=== PATIENT | male | born 1945 | race Caucasian/White ===

== ENCOUNTER 2016-08-07 11:22 | Emergency (ER) | payer MEDICARE, OTHER ==
--- NOTE | 2016-08-07 12:41 | REP ---
Clinical: cough. Comparison: 04/12/2012. Technique: PA and lateral. Findings: The mediastinum and cardiac silhouette are normal. The lung atkinson demonstrate chronic linear changes in left lower lobe without acute consolidation, effusion, or pneumothorax. The skeletal structures are intact and normal. Impression: 1. No acute cardiopulmonary process. Signed by Daniel Garcia MD 08/07/2016 12:32 P
--- NOTE | 2016-08-07 12:47 | EDDOCDS ---
Nurse's Notes [facility] Name: Lb Son Age: 71 yrs Sex: Male : 1945 Arrival Date: 08/07/2016 Time: 11:22 Bed PR2 Private MD: Layton Lopez Diagnosis: Acute upper respiratory infection, unspecified Presentation: 08/07 11:35 Presenting complaint: Patient states: Pt presents with cough and chest congestion x 5 dls days taking OTC meds without relief. Adult Sepsis Screening: The patient does not have new or worsening altered mentation. Patient's respiratory rate is less than 22. Systolic blood pressure is greater than 100. Patient has a qSOFA score of 0- Negative Sepsis Screen. Suicide/Homicide risk assessment- the patient denies having any suicidal and/or homicidal ideations and does not present with any other emotional, behavioral or mental health complaints. Status: Patient is not a service girl or dependent. Transition of care: patient was not received from another setting of care. 11:35 Acuity: MARCEL Level 4 dls 11:35 Method Of Arrival: Walkin/Carried/Asstd dls Triage Assessment: 11:39 General: Appears in no apparent distress, well developed, well nourished, well groomed, dls Behavior is cooperative. Pain: Denies pain. Respiratory: Onset: The symptoms/episode began/occurred 5 days ago. GI: No deficits noted. : No deficits noted. Derm: No deficits noted. Musculoskeletal: No deficits noted. Injury Description: No known injury. Historical: - Allergies: no known allergies; - Home Meds: 1. atorvastatin 10 mg oral tab 1 tab once daily 2. valsartan-hydrochlorothiazide 160-12.5 mg oral tab 1 tab once daily 3. Janumet 50-500 mg oral tab 1 tab 2 times per day 4. Lantus 100 unit/mL Sub-Q soln 20 unit daily 5. Vitamin D2 oral 1.25 mg oral once wkly 6. aspirin 325 mg Oral tab 1 tab once daily 7. montelukast 10 mg oral tab 1 tab once daily 8. cyclobenzaprine 5 mg Oral tab 1 tab daily 9. tamsulosin 0.4 mg oral cp24 1 cap once daily 10. PreserVision AREDS 2 [id number] yc-gxvc-kc-mg oral cap twice a day 11. primidone 50 mg Oral tab daily - PMHx: Diabetes - IDDM: controlled; Hypercholesterolemia; Hypertension; tremors; - PSHx: knee right; right shoulder; Tonsillectomy; Hernia repair- Right inguinal; - Social history: Smoking status: Patient/guardian denies using No barriers to communication noted, The patient speaks fluent Bengali. - : The pt / caregiver states he / she is not on anticoagulants. Home medication list is obtained from the patient. - Exposure Risk Screening:: None identified. Vital Signs: 11:24 BP 156 / 78; Pulse 98; Resp 18 S; Temp 97.2(O); Pulse Ox 100% on R/A; Weight 81.65 kg dd6 (R); Height 6 ft. 2 in. (187.96 cm) (R); 12:43 BP 155 / 82; Pulse 77; Resp 18; Temp 97.4(O); Pulse Ox 97% on R/A; Pain 0/10; ct3 11:24 Body Mass Index 23.11 (81.65 kg, 187.96 cm) dd6 Vitals: 11:24 Log In Time: August 07, 2016 at 11:22. dd6 ED Course: 11:23 Patient visited by Lex Calderon PCA. dd6 11:23 Layton Lopez is Private Physician. dd6 11:23 Patient moved to Waiting dd6 11:25 Patient moved to Pre RCE dd6 11:36 Triage Initiated dls 11:53 Patient moved to Triage 1 kcs 11:54 [facility]. ar2 11:54 Antonieta Last MD is Attending Physician. ar2 11:54 Patient visited by Polo Golden PA-C. ar2 12:07 Patient moved to TR3 kcs 12:38 Layton Lopez is Referral Physician. ar2 12:38 Patient moved to PR2 / 26 ct3 12:44 Patient visited by Vidhya Vilchis PCA. ct3 Order Results: There are currently no results for this order. Outcome: 12:38 Discharge ordered by Provider. ar2 12:46 Patient left the ED. kcs Signatures: Genie Escalante RN RN Gertrudis Galeas RN RN dls Robertshaw, Aaron, PA-C PA-C ar2 Lex Calderon, HOUSE PLAYER HOUSE PLAYER dd6 Vidhya Vilchis, HOUSE PLAYER HOUSE PLAYER ct3 Tammy Roe,RN RN [id number] MTDD
--- NOTE | 2016-08-07 12:47 | EDDOCDS ---
Physician Documentation [facility] Name: Lb Son Age: 71 yrs Sex: Male : 1945 Arrival Date: 08/07/2016 Time: 11:22 Bed Private MD: Layton Lopez Disposition: 08/07/16 12:38 Discharged to Home/Self Care. Impression: Acute upper respiratory infection, unspecified. - Condition is Stable. - Discharge Instructions: Upper Respiratory Infection, Adult. - Prescriptions for benzonatate 200 mg Oral Capsule - take 1 capsule by ORAL route 3 times per day As needed; 30 capsule. Fluticasone 50 mcg/actuation Nasal [place], Suspension - inhale 2 spray by INTRANASAL route once daily; 1 bottle. - Medication Reconciliation, Local Pharmacy Hours form. - Follow up: Layton Lopez; When: 2 - 3 days; Reason: Recheck today's complaints. Follow up: Emergency Department; When: As needed; Reason: Fever > 102F, Trouble breathing, Worsening of conditions. - Problem is new. - Symptoms are unchanged. Historical: - Allergies: no known allergies; - Home Meds: 1. atorvastatin 10 mg oral tab 1 tab once daily 2. valsartan-hydrochlorothiazide 160-12.5 mg oral tab 1 tab once daily 3. Janumet 50-500 mg oral tab 1 tab 2 times per day 4. Lantus 100 unit/mL Sub-Q soln 20 unit daily 5. Vitamin D2 oral 1.25 mg oral once wkly 6. aspirin 325 mg Oral tab 1 tab once daily 7. montelukast 10 mg oral tab 1 tab once daily 8. cyclobenzaprine 5 mg Oral tab 1 tab daily 9. tamsulosin 0.4 mg oral cp24 1 cap once daily 10. PreserVision AREDS 2 [phone] lo-cwzi-gv-mg oral cap twice a day 11. primidone 50 mg Oral tab daily - PMHx: Diabetes - IDDM: controlled; Hypercholesterolemia; Hypertension; tremors; - PSHx: knee right; right shoulder; Tonsillectomy; Hernia repair- Right inguinal; - Social history: Smoking status: Patient/guardian denies using No barriers to communication noted, The patient speaks fluent Samoan. - : The pt / caregiver states he / she is not on anticoagulants. Home medication list is obtained from the patient. - Exposure Risk Screening:: None identified. Vital Signs: 08/07 11:24 BP 156 / 78; Pulse 98; Resp 18 S; Temp 97.2(O); Pulse Ox 100% on R/A; Weight 81.65 kg / dd6 180.01 lbs (R); Height 6 ft. 2 in. (187.96 cm) (R); 12:43 BP 155 / 82; Pulse 77; Resp 18; Temp 97.4(O); Pulse Ox 97% on R/A; Pain 0/10; ct3 11:24 Body Mass Index 23.11 (81.65 kg, 187.96 cm) dd6 MDM: 12:09 Chest, 2 View (pa\E\lat) Ordered. EDMS 12:09 Financial registration complete. lg Signatures: Dispatcher [employer] EDMS Genie Escalante, HEIDI RN Gertrudis Galeas RN RN dls Oli Nicolas, Reg Reg lg Polo Golden PA-C PAIra ar2 Tammy Roe,HEIDI RN ms18 MTDD
--- NOTE | 2016-08-09 13:47 | EDDOCDS ---
Physician Documentation [facility] Name: Lb Son Age: 71 yrs Sex: Male : 1945 Arrival Date: 08/07/2016 Time: 11:22 Bed Private MD: Layton Lopez Disposition: 08/07/16 12:38 Discharged to Home/Self Care. Impression: Acute upper respiratory infection, unspecified. - Condition is Stable. - Discharge Instructions: Upper Respiratory Infection, Adult. - Prescriptions for benzonatate 200 mg Oral Capsule - take 1 capsule by ORAL route 3 times per day As needed; 30 capsule. Fluticasone 50 mcg/actuation Nasal [place], Suspension - inhale 2 spray by INTRANASAL route once daily; 1 bottle. - Medication Reconciliation, Local Pharmacy Hours form. - Follow up: Layton Lopez; When: 2 - 3 days; Reason: Recheck today's complaints. Follow up: Emergency Department; When: As needed; Reason: Fever > 102F, Trouble breathing, Worsening of conditions. - Problem is new. - Symptoms are unchanged. Historical: - Allergies: no known allergies; - Home Meds: 1. atorvastatin 10 mg oral tab 1 tab once daily 2. valsartan-hydrochlorothiazide 160-12.5 mg oral tab 1 tab once daily 3. Janumet 50-500 mg oral tab 1 tab 2 times per day 4. Lantus 100 unit/mL Sub-Q soln 20 unit daily 5. Vitamin D2 oral 1.25 mg oral once wkly 6. aspirin 325 mg Oral tab 1 tab once daily 7. montelukast 10 mg oral tab 1 tab once daily 8. cyclobenzaprine 5 mg Oral tab 1 tab daily 9. tamsulosin 0.4 mg oral cp24 1 cap once daily 10. PreserVision AREDS 2 [id number] zn-ojtp-wg-mg oral cap twice a day 11. primidone 50 mg Oral tab daily - PMHx: Diabetes - IDDM: controlled; Hypercholesterolemia; Hypertension; tremors; - PSHx: knee right; right shoulder; Tonsillectomy; Hernia repair- Right inguinal; - Social history: Smoking status: Patient/guardian denies using No barriers to communication noted, The patient speaks fluent [place]. - Family history: Not pertinent. - : The pt / caregiver states he / she is not on anticoagulants. Home medication list is obtained from the patient. - Exposure Risk Screening:: None identified. Vital Signs: 08/07 11:24 BP 156 / 78; Pulse 98; Resp 18 S; Temp 97.2(O); Pulse Ox 100% on R/A; Weight 81.65 kg / dd6 180.01 lbs (R); Height 6 ft. 2 in. (187.96 cm) (R); 12:43 BP 155 / 82; Pulse 77; Resp 18; Temp 97.4(O); Pulse Ox 97% on R/A; Pain 0/10; ct3 11:24 Body Mass Index 23.11 (81.65 kg, 187.96 cm) dd6 MDM: 12:09 Chest, 2 View (pa\E\lat) Ordered. EDMS 12:09 Financial registration complete. lg 14:30 T-Sheet-- Draft Copy was scanned into [employer] and attached to record. gb 14:30 Radiology Report was scanned into [employer] and attached to record. gb 14:41 [facility] Payment Agreement was scanned into [employer] and attached to record. lg Signatures: Dispatcher [employer] EDSD Genie Escalante, RN RN Gertrudis Galeas RN RN dls Ese Ly, Reg Reg gb Oli Nicolas, Reg Reg lg Polo Golden, PA-C PA-C ar2 Tammy Roe RN RN ms18 The chart was reviewed and I authenticate all verbal orders and agree with the evaluation and treatment provided.Attachments: 14:30 T-Sheet-- Draft Copy gb 14:41 [facility] Payment Agreement lg Chart Complete MTDD
--- NOTE | 2016-08-09 13:47 | EDDOCDS ---
Physician Documentation [facility] Name: Lb Son Age: 71 yrs Sex: Male : 1945 Arrival Date: 08/07/2016 Time: 11:22 Bed Private MD: Layton Lopez Disposition: 08/07/16 12:38 Discharged to Home/Self Care. Impression: Acute upper respiratory infection, unspecified. - Condition is Stable. - Discharge Instructions: Upper Respiratory Infection, Adult. - Prescriptions for benzonatate 200 mg Oral Capsule - take 1 capsule by ORAL route 3 times per day As needed; 30 capsule. Fluticasone 50 mcg/actuation Nasal [place], Suspension - inhale 2 spray by INTRANASAL route once daily; 1 bottle. - Medication Reconciliation, Local Pharmacy Hours form. - Follow up: Layton Lopez; When: 2 - 3 days; Reason: Recheck today's complaints. Follow up: Emergency Department; When: As needed; Reason: Fever > 102F, Trouble breathing, Worsening of conditions. - Problem is new. - Symptoms are unchanged. Historical: - Allergies: no known allergies; - Home Meds: 1. atorvastatin 10 mg oral tab 1 tab once daily 2. valsartan-hydrochlorothiazide 160-12.5 mg oral tab 1 tab once daily 3. Janumet 50-500 mg oral tab 1 tab 2 times per day 4. Lantus 100 unit/mL Sub-Q soln 20 unit daily 5. Vitamin D2 oral 1.25 mg oral once wkly 6. aspirin 325 mg Oral tab 1 tab once daily 7. montelukast 10 mg oral tab 1 tab once daily 8. cyclobenzaprine 5 mg Oral tab 1 tab daily 9. tamsulosin 0.4 mg oral cp24 1 cap once daily 10. PreserVision AREDS 2 [phone] tv-slun-ln-mg oral cap twice a day 11. primidone 50 mg Oral tab daily - PMHx: Diabetes - IDDM: controlled; Hypercholesterolemia; Hypertension; tremors; - PSHx: knee right; right shoulder; Tonsillectomy; Hernia repair- Right inguinal; - Social history: Smoking status: Patient/guardian denies using No barriers to communication noted, The patient speaks fluent [place]an. - Family history: Not pertinent. - : The pt / caregiver states he / she is not on anticoagulants. Home medication list is obtained from the patient. - Exposure Risk Screening:: None identified. Vital Signs: 08/07 11:24 BP 156 / 78; Pulse 98; Resp 18 S; Temp 97.2(O); Pulse Ox 100% on R/A; Weight 81.65 kg / dd6 180.01 lbs (R); Height 6 ft. 2 in. (187.96 cm) (R); 12:43 BP 155 / 82; Pulse 77; Resp 18; Temp 97.4(O); Pulse Ox 97% on R/A; Pain 0/10; ct3 11:24 Body Mass Index 23.11 (81.65 kg, 187.96 cm) dd6 MDM: 12:09 Chest, 2 View (pa\E\lat) Ordered. EDMS 12:09 Financial registration complete. lg 14:30 T-Sheet-- Draft Copy was scanned into [employer] and attached to record. gb 14:30 Radiology Report was scanned into [employer] and attached to record. gb 14:41 [facility] Payment Agreement was scanned into [employer] and attached to record. lg Signatures: Dispatcher [employer] EDMA Genie Escalante, RN RN Gertrudis Galeas RN RN dls Ese Ly, Reg Reg gb Oli Nicolas, Reg Reg lg Polo Golden, PA-C PA-C ar2 Tammy Roe RN RN ms18 The chart was reviewed and I authenticate all verbal orders and agree with the evaluation and treatment provided.Attachments: 14:30 T-Sheet-- Draft Copy gb 14:41 [facility] Payment Agreement lg Chart Complete MTDD
--- NOTE | 2016-08-09 13:47 | EDDOCDS ---
Nurse's Notes [facility] Name: Lb Son Age: 71 yrs Sex: Male : 1945 Arrival Date: 08/07/2016 Time: 11:22 Bed PR2 Private MD: Layton Lopez Diagnosis: Acute upper respiratory infection, unspecified Presentation: 08/07 11:35 Presenting complaint: Patient states: Pt presents with cough and chest congestion x 5 dls days taking OTC meds without relief. Adult Sepsis Screening: The patient does not have new or worsening altered mentation. Patient's respiratory rate is less than 22. Systolic blood pressure is greater than 100. Patient has a qSOFA score of 0- Negative Sepsis Screen. Suicide/Homicide risk assessment- the patient denies having any suicidal and/or homicidal ideations and does not present with any other emotional, behavioral or mental health complaints. Status: Patient is not a human services professional or dependent. Transition of care: patient was not received from another setting of care. 11:35 Acuity: MARCEL Level 4 dls 11:35 Method Of Arrival: Walkin/Carried/Asstd dls Triage Assessment: 11:39 General: Appears in no apparent distress, well developed, well nourished, well groomed, dls Behavior is cooperative. Pain: Denies pain. Respiratory: Onset: The symptoms/episode began/occurred 5 days ago. GI: No deficits noted. : No deficits noted. Derm: No deficits noted. Musculoskeletal: No deficits noted. Injury Description: No known injury. Historical: - Allergies: no known allergies; - Home Meds: 1. atorvastatin 10 mg oral tab 1 tab once daily 2. valsartan-hydrochlorothiazide 160-12.5 mg oral tab 1 tab once daily 3. Janumet 50-500 mg oral tab 1 tab 2 times per day 4. Lantus 100 unit/mL Sub-Q soln 20 unit daily 5. Vitamin D2 oral 1.25 mg oral once wkly 6. aspirin 325 mg Oral tab 1 tab once daily 7. montelukast 10 mg oral tab 1 tab once daily 8. cyclobenzaprine 5 mg Oral tab 1 tab daily 9. tamsulosin 0.4 mg oral cp24 1 cap once daily 10. PreserVision AREDS 2 [phone] xf-eklb-oo-mg oral cap twice a day 11. primidone 50 mg Oral tab daily - PMHx: Diabetes - IDDM: controlled; Hypercholesterolemia; Hypertension; tremors; - PSHx: knee right; right shoulder; Tonsillectomy; Hernia repair- Right inguinal; - Social history: Smoking status: Patient/guardian denies using No barriers to communication noted, The patient speaks fluent Tajik. - Family history: Not pertinent. - : The pt / caregiver states he / she is not on anticoagulants. Home medication list is obtained from the patient. - Exposure Risk Screening:: None identified. Screenin:45 Screening information is obtained from prior medical records. Fall risk: No risks kcs identified. Assistance ADL's: requires no assistance with activities of daily living. Abuse/DV Screen: The patient / caregiver reports he/she is: not in a situation that causes fear, pain or injury. Nutritional screening: No deficits noted. Advance Directives: Currently, there is no health care proxy. There is no living will. home support is adequate. Assessment: 12:45 Reassessment: Patient states symptoms have not improved. General: Appears comfortable, kcs well developed, well nourished, well groomed, Behavior is cooperative, pleasant. Pain: Denies pain. Neurological: Level of Consciousness is awake, alert. Respiratory: Airway is patent Respiratory effort is even, unlabored, Respiratory pattern is regular, symmetrical. Derm: Skin is intact, is healthy with good turgor, Skin is dry, Skin is normal. Vital Signs: 11:24 BP 156 / 78; Pulse 98; Resp 18 S; Temp 97.2(O); Pulse Ox 100% on R/A; Weight 81.65 kg dd6 (R); Height 6 ft. 2 in. (187.96 cm) (R); 12:43 BP 155 / 82; Pulse 77; Resp 18; Temp 97.4(O); Pulse Ox 97% on R/A; Pain 0/10; ct3 11:24 Body Mass Index 23.11 (81.65 kg, 187.96 cm) dd6 Vitals: 11:24 Log In Time: August 07, 2016 at 11:22. dd6 ED Course: 11:23 Patient visited by Lex Calderon PCA. dd6 11:23 Layton Lopez is Private Physician. dd6 11:23 Patient moved to Waiting dd6 11:25 Patient moved to Pre RCE dd6 11:36 Triage Initiated dls 11:53 Patient moved to Triage 1 kcs 11:54 Polo Golden PA-C is PHCP. ar2 11:54 Antonieta Last MD is Attending Physician. ar2 11:54 Patient visited by Polo Golden PA-C. ar2 12:07 Patient moved to TR3 kcs 12:38 Layton Lopez is Referral Physician. ar2 12:38 Patient moved to PR2 / 26 ct3 12:44 Patient visited by Vidhya Vilchis PCA. ct3 12:45 The patient / caregiver is instructed regarding the plan of care and ED course. kcs 12:45 No IV's were initiated during this patient's visit. No procedures done that require kcs assistance. 12:55 Chest, 2 View (pa\E\lat) Returned. EDMS 14:30 T-Sheet-- Draft Copy was scanned into [employer] and attached to record. gb 14:30 Radiology Report was scanned into [employer] and attached to record. gb 14:41 [facility] Payment Agreement was scanned into [employer] and attached to record. lg Order Results: Radiology Order: Chest, 2 View (pa\E\lat) Test: Chest, 2 View (pa\E\lat) REASON FOR EXAMINATION: cough, congestion; Clinical: cough.; ; Comparison: 04/12/2012.; ; Technique: PA and lateral.; ; Findings:; The mediastinum and cardiac silhouette are normal. The lung atkinson demonstrate; chronic linear changes in left lower lobe without acute consolidation, effusion,; or pneumothorax. The skeletal structures are intact and normal.; ; Impression:; 1. No acute cardiopulmonary process.; ; ; Signed by; Daniel Garcia MD 08/07/2016 12:32 P; Outcome: 12:38 Discharge ordered by Provider. ar2 12:45 Discharge Assessment: Patient awake, alert and oriented x 3. No cognitive and/or kcs functional deficits noted. Patient verbalized understanding of disposition instructions. Patient awake and alert. patient administered narcotics - no. The following High Risk Discharge criteria are identified: None. Discharged to home ambulatory. Condition: stable. Discharge instructions given to patient, Instructed on discharge instructions, follow up and referral plans. medication usage, no driving heavy equipment, no drinking with medication, Demonstrated understanding of instructions, medications, Pt was receptive of discharge instructions/ teaching. No special radiology studies were completed. Property sent home with patient. 12:46 Patient left the ED. kcs Signatures: Dispatcher [employer] Genie Velarde, RN RN Gertrudis Galeas RN RN dls Aliyah, Ese, Reg Reg gb Oli Nicolas, Reg Reg lg Polo Golden PA-C PAIra ar2 Lex Calderon, HAY SORTER HAY SORTER dd6 Vidhya Vilchis, HAY SORTER HAY SORTER ct3 Tammy Roe RN RN ms18 Chart Complete MTDD
== END 2016-08-07 12:46 | disposition home or self-care (01) ==
LOC: M ED 11:22
DX: J06.9 Acute upper respiratory infection, unspecified (principal); E10.9 Type 1 diabetes mellitus without complications; E78.00 Pure hypercholesterolemia, unspecified; I10 Essential (primary) hypertension; R25.1 Tremor, unspecified; Z90.89 Acquired absence of other organs; Z79.4 Long term (current) use of insulin; Z79.899 Other long term (current) drug therapy

== ENCOUNTER → 2016-10-26 | Outpatient (CLI) | payer MEDICARE, OTHER ==
[2016-10-26 08:13] LABS: BASO % 0.6 % (0.0-1.0); EOS # 0.1 K/mm3 (0.0-0.50); EOS % 1.7 % (0.0-3.0); LARGE UNSTAINED CELL # 0.2 K/mm3 (0.0-0.4); LARGE UNSTAINED CELL % 2.4 % (0.0-4.0); LYMPH # 2.6 K/mm3 (1.5-4.5); LYMPH % 30.4 % (24.0-44.0); MEAN CORPUSCULAR HEMOGLOBIN 29.1 pg (27.0-33.0); MEAN CORPUSCULAR HGB CONC 33.9 g/dl (32.0-36.5); MEAN CORPUSCULAR VOLUME 85.8 fl (80.0-96.0); MONO # 0.6 K/mm3 (0.0-0.8); MONO % 7.6 % (0.0-5.0); NEUTROPHILS # 4.6 K/mm3 (1.8-7.7); NEUTROPHILS % 57.4 % (36.0-66.0); PLATELET COUNT, AUTOMATED 214 k/mm3 (150-450); RED CELL DISTRIBUTION WIDTH 12.5 % (11.5-14.5); WHITE BLOOD COUNT 7.9 K/mm3 (4.0-10.0)
[2016-10-26 08:46] LABS: ALBUMIN 3.5 GM/DL (3.2-5.2); ALBUMIN/GLOBULIN RATIO 1.21 (1.00-1.93); ALKALINE PHOSPHATASE 93 U/L (45-117); ALT/SGPT 29 U/L (12-78); ANION GAP 8 MEQ/L (8-16); AST/SGOT 20 U/L (15-37); BILIRUBIN,TOTAL 0.6 MG/DL (0.2-1.0); BLOOD UREA NITROGEN 11 MG/DL (7-18); CARBON DIOXIDE LEVEL 30 MEQ/L (21-32); CHLORIDE LEVEL 101 MEQ/L (98-107); CHOLESTEROL LEVEL 121 MG/DL (<200); CREATININE FOR GFR 0.87 MG/DL (0.70-1.30); FREE T4 1.35 NG/DL (0.76-1.46); GLOMERULAR FILTRATION RATE > 60.0 (>42); GLUCOSE, FASTING 113 MG/DL (83-110); POTASSIUM SERUM 3.7 MEQ/L (3.5-5.1); SODIUM LEVEL 139 MEQ/L (136-145); TOTAL PROTEIN 6.4 GM/DL (6.4-8.2); TRIGLYCERIDES LEVEL 78 MG/DL (<150)
== END ==
LOC: M LAB 07:19
PROVIDERS: ATTEND Family Medicine
DX: E05.90 Thyrotoxicosis, unspecified without thyrotoxic crisis or storm (principal); I10 Essential (primary) hypertension; E11.9 Type 2 diabetes mellitus without complications

== ENCOUNTER → 2017-02-15 | Outpatient (CLI) | payer MEDICARE, OTHER ==
[2017-02-15 08:56] LABS: ALBUMIN 3.4 GM/DL (3.2-5.2); ALBUMIN/GLOBULIN RATIO 1.17 (1.00-1.93); ALKALINE PHOSPHATASE 73 U/L (45-117); ALT/SGPT 20 U/L (12-78); ANION GAP 7 MEQ/L (8-16); AST/SGOT 15 U/L (15-37); BILIRUBIN,TOTAL 0.6 MG/DL (0.2-1.0); BLOOD UREA NITROGEN 11 MG/DL (7-18); CALCIUM LEVEL 8.9 MG/DL (8.8-10.2); CARBON DIOXIDE LEVEL 28 MEQ/L (21-32); CHLORIDE LEVEL 104 MEQ/L (98-107); CHOLESTEROL LEVEL 108 MG/DL (<200); CREATININE FOR GFR 0.82 MG/DL (0.70-1.30); FREE T4 1.32 NG/DL (0.76-1.46); GLOMERULAR FILTRATION RATE > 60.0 (>42); GLUCOSE, FASTING 85 MG/DL (83-110); POTASSIUM SERUM 3.7 MEQ/L (3.5-5.1); SODIUM LEVEL 139 MEQ/L (136-145); TOTAL PROTEIN 6.3 GM/DL (6.4-8.2); TRIGLYCERIDES LEVEL 72 MG/DL (<150)
== END ==
LOC: M LAB 07:23
PROVIDERS: ATTEND Family Medicine
DX: E04.2 Nontoxic multinodular goiter (principal); E78.5 Hyperlipidemia, unspecified; E11.9 Type 2 diabetes mellitus without complications

== ENCOUNTER → 2017-08-13 | Outpatient (CLI) | payer MEDICARE, OTHER ==
[2017-08-13 09:21] LABS: ALBUMIN 3.4 GM/DL (3.2-5.2); ALKALINE PHOSPHATASE 106 U/L (45-117); ALT/SGPT 23 U/L (12-78); ANION GAP 6 MEQ/L (8-16); AST/SGOT 16 U/L (7-37); BILIRUBIN,TOTAL 0.4 MG/DL (0.2-1.0); BLOOD UREA NITROGEN 19 MG/DL (7-18); CALCIUM LEVEL 8.8 MG/DL (8.8-10.2); CARBON DIOXIDE LEVEL 32 MEQ/L (21-32); CHLORIDE LEVEL 102 MEQ/L (98-107); CHOLESTEROL LEVEL 123 MG/DL (<200); CREATININE FOR GFR 0.83 MG/DL (0.70-1.30); GLOMERULAR FILTRATION RATE > 60.0 (>42); GLUCOSE, FASTING 136 MG/DL (83-110); HDL CHOLESTEROL 58 MG/DL (>40); LDL CHOLESTEROL 55.8 MG/DL (<100); NON-HDL-C 65 MG/DL; POTASSIUM SERUM 3.9 MEQ/L (3.5-5.1); SODIUM LEVEL 140 MEQ/L (136-145); THYROID STIMULATING HORMONE 0.432 uIU/ML (0.358-3.740); TOTAL PROTEIN 6.5 GM/DL (6.4-8.2); TRIGLYCERIDES LEVEL 46 MG/DL (<150)
[2017-08-13 09:32] LABS: ESTIMATED AVERAGE GLUCOSE 157 MG/DL (60-110); HEMOGLOBIN A1c 7.1 %
== END ==
LOC: M LAB 07:56
DX: E11.9 Type 2 diabetes mellitus without complications (principal)
CPT/HCPCS: 84443

== ENCOUNTER 2017-08-17 12:07 | Emergency (ER) | payer MEDICARE, OTHER | END 2017-08-17 13:11 | disposition home or self-care (01) | LOC: M ED 12:07 | DX: S42.215A Unspecified nondisplaced fracture of surgical neck of left humerus, initial encounter for closed fracture (principal); W00.9XXA Unspecified fall due to ice and snow, initial encounter; Y92.410 Unspecified street and highway as the place of occurrence of the external cause; Y93.89 Activity, other specified; Y99.8 Other external cause status; I10 Essential (primary) hypertension; E11.9 Type 2 diabetes mellitus without complications; N40.0 Benign prostatic hyperplasia without lower urinary tract symptoms; Z79.4 Long term (current) use of insulin; Z79.899 Other long term (current) drug therapy; Z79.82 Long term (current) use of aspirin; Z98.890 Other specified postprocedural states | CPT/HCPCS: 73030 ==

== ENCOUNTER → 2018-02-12 | Outpatient (CLI) | payer MEDICARE, OTHER ==
[2018-02-12 08:45] LABS: ALBUMIN 3.4 GM/DL (3.2-5.2); ALBUMIN/GLOBULIN RATIO 1.17 (1.00-1.93); ALKALINE PHOSPHATASE 81 U/L (45-117); ALT/SGPT 20 U/L (12-78); ANION GAP 7 MEQ/L (8-16); AST/SGOT 16 U/L (7-37); BILIRUBIN,TOTAL 0.6 MG/DL (0.2-1.0); BLOOD UREA NITROGEN 12 MG/DL (7-18); CALCIUM LEVEL 8.6 MG/DL (8.8-10.2); CARBON DIOXIDE LEVEL 30 MEQ/L (21-32); CHLORIDE LEVEL 106 MEQ/L (98-107); CHOLESTEROL LEVEL 116 MG/DL (<200); CREATININE FOR GFR 0.69 MG/DL (0.70-1.30); FREE T4 1.32 NG/DL (0.76-1.46); GLOMERULAR FILTRATION RATE > 60.0 (>42); GLUCOSE, FASTING 140 MG/DL (70-100); HDL CHOLESTEROL 50 MG/DL (>40); LDL CHOLESTEROL 49.4 MG/DL (<100); NON-HDL-C 66 MG/DL; POTASSIUM SERUM 3.6 MEQ/L (3.5-5.1); SODIUM LEVEL 143 MEQ/L (136-145); THYROID STIMULATING HORMONE 0.167 uIU/ML (0.358-3.740); TOTAL PROTEIN 6.3 GM/DL (6.4-8.2); TRIGLYCERIDES LEVEL 83 MG/DL (<150)
== END ==
LOC: M LAB 07:37
DX: E78.5 Hyperlipidemia, unspecified (principal)
CPT/HCPCS: 84443

== ENCOUNTER → 2018-04-15 | Outpatient (CLI) | payer MEDICARE, OTHER | LOC: M RAD 15:37 | DX: J32.0 Chronic maxillary sinusitis (principal) | CPT/HCPCS: 70486 ==

== ENCOUNTER → 2018-05-13 | Outpatient (CLI) | payer MEDICARE, OTHER ==
[2018-05-13 10:09] LABS: ALBUMIN 3.7 GM/DL (3.2-5.2); ALBUMIN/GLOBULIN RATIO 1.19 (1.00-1.93); ALKALINE PHOSPHATASE 84 U/L (45-117); ALT/SGPT 26 U/L (12-78); ANION GAP 6 MEQ/L (8-16); AST/SGOT 19 U/L (7-37); BILIRUBIN,TOTAL 0.6 MG/DL (0.2-1.0); BLOOD UREA NITROGEN 12 MG/DL (7-18); CALCIUM LEVEL 9.3 MG/DL (8.8-10.2); CARBON DIOXIDE LEVEL 32 MEQ/L (21-32); CHLORIDE LEVEL 105 MEQ/L (98-107); CHOLESTEROL LEVEL 135 MG/DL (<200); CHOLESTEROL RISK RATIO 2.368 (<5); CREATININE FOR GFR 0.79 MG/DL (0.70-1.30); GLOMERULAR FILTRATION RATE > 60.0 (>42); GLUCOSE, FASTING 122 MG/DL (70-100); HDL CHOLESTEROL 57 MG/DL (>40); LDL CHOLESTEROL 64 MG/DL (<100); NON-HDL-C 78 MG/DL; SODIUM LEVEL 143 MEQ/L (136-145); THYROID STIMULATING HORMONE 0.366 uIU/ML (0.358-3.740); THYROXINE (T4) 10.5 UG/DL (4.5-12.0); TOTAL PROTEIN 6.8 GM/DL (6.4-8.2); TRIGLYCERIDES LEVEL 72 MG/DL (<150)
[2018-05-13 11:08] LABS: ESTIMATED AVERAGE GLUCOSE 143 MG/DL (60-110); HEMOGLOBIN A1c 6.6 %
== END ==
LOC: M LAB 08:38
DX: E03.9 Hypothyroidism, unspecified (principal); Z79.899 Other long term (current) drug therapy
CPT/HCPCS: 84443

== ENCOUNTER 2018-07-09 14:10 | Inpatient (IN) | payer MEDICARE, OTHER ==
[2018-07-09 15:18] LABS: APPEARANCE, URINE HAZY (CLEAR); BACTERIA, URINE AUTO 1+ (NEGATIVE); BILIRUBIN, URINE AUTO NEGATIVE (NEGATIVE); BLOOD, URINE BLOOD 2+ (NEGATIVE); COLOR, URINE YELLOW (YELLOW); GLUCOSE, URINE (UA) AUTO 3+ mg/dL (NEGATIVE); KETONE, URINE AUTO NEGATIVE (NEGATIVE); LEUKOCYTE ESTERASE, URINE AUTO 1+ (NEGATIVE); MUCUS, URINE SMALL (NEGATIVE); NITRITE, URINE AUTO POSITIVE (NEGATIVE); PROTEIN, URINE AUTO 1+ mg/dL (NEGATIVE); RBC, URINE AUTO 8 /HPF (0-3); SPECIFIC GRAVITY URINE AUTO 1.014 (1.002-1.035); SQUAMOUS EPITHELIAL CELL UR AU 0 /HPF (0-6); UROBILINOGEN, URINE AUTO 0.2 mg/dL (0.0-2.0); WBC, URINE AUTO 49 /HPF (0-3)
[2018-07-09 15:24] LABS: INFLUENZA A AMPLIFICATION NEGATIVE (NEGATIVE); INFLUENZA B AMPLIFICATION NEGATIVE (NEGATIVE)
[2018-07-09 15:32] LABS: VENOUS BASE EXCESS 2.3 (-2.0-2.0); VENOUS HCO3 26.3 MEQ/L (23.0-27.0); VENOUS O2 SATURATION 93.4 % (60.0-80.0); VENOUS PARTIAL PRESSURE O2 62.5 mmHg (30.0-50.0); VENOUS PH 7.447 UNITS (7.330-7.430); VENOUS STANDARD HCO3 26.4 MEQ/L; VENOUS TOTAL CO2 27.5 MEQ/L (24.0-28.0)
[2018-07-09 15:39] LABS: BASO % 0.1 % (0.0-1.0); HEMATOCRIT 39.2 % (42.0-52.0); HEMOGLOBIN 13.4 g/dl (13.5-17.5); IMMATURE GRANULOCYTE % 0.5 % (0-3.0); LYMPH # 0.9 10^3/uL (1.5-4.5); LYMPH % 4.1 % (24.0-44.0); MEAN CORPUSCULAR HEMOGLOBIN 28.8 pg (27.0-33.0); MEAN CORPUSCULAR HGB CONC 34.2 g/dl (32.0-36.5); MEAN CORPUSCULAR VOLUME 84.3 fl (80.0-96.0); MONO % 9.3 % (0.0-5.0); NEUTROPHILS # 19.4 10^3/uL (1.8-7.7); PLATELET COUNT, AUTOMATED 173 10^3/uL (150-450); RED BLOOD COUNT 4.65 10^6/uL (4.30-6.10); RED CELL DISTRIBUTION WIDTH 13.1 % (11.5-14.5); WHITE BLOOD COUNT 22.6 10^3/uL (4.0-10.0)
[2018-07-09 15:49] LABS: INR 1.23; PROTHROMBIN TIME 15.7 SECONDS (12.1-14.4)
[2018-07-09 15:50] LABS: PARTIAL THROMBOPLASTIN TIME 28.7 SECONDS (25.4-37.6)
[2018-07-09 15:58] LABS: MONO # 2.1 10^3/uL (0.0-0.8); POSITIVE DIFF POS FLAG
[2018-07-09 16:11] LABS: ALBUMIN/GLOBULIN RATIO 1.07 (1.00-1.93); ALKALINE PHOSPHATASE 73 U/L (45-117); ALT/SGPT 17 U/L (12-78); AMYLASE 27 U/L (25-115); ANION GAP 9 MEQ/L (8-16); AST/SGOT 10 U/L (7-37); BILIRUBIN,DIRECT 0.2 MG/DL (0.0-0.2); BILIRUBIN,TOTAL 0.7 MG/DL (0.2-1.0); BLOOD UREA NITROGEN 14 MG/DL (7-18); C REACTIVE PROTEIN QUANTITATIV 9.37 MG/DL (0.00-0.30); CALCIUM LEVEL 8.7 MG/DL (8.8-10.2); CARBON DIOXIDE LEVEL 25 MEQ/L (21-32); CHLORIDE LEVEL 99 MEQ/L (98-107); CK-MB VALUE MASS < 1.0 NG/ML (<3.6); CPK CREATINE PHOSPHOKINASE 70 U/L (39-308); CREATININE FOR GFR 0.98 MG/DL (0.70-1.30); GLOMERULAR FILTRATION RATE > 60.0 (>42); GLUCOSE, FASTING 244 MG/DL (70-100); MB/CK RELATIVE INDEX 1.43 (< OR =4); POTASSIUM SERUM 3.2 MEQ/L (3.5-5.1); SODIUM LEVEL 133 MEQ/L (136-145); TOTAL PROTEIN 5.8 GM/DL (6.4-8.2); TROPONIN I < 0.02 NG/ML (< 0.10)
[2018-07-09 16:21] LABS: LACTIC ACID SEPSIS PROTOCOL 2.3 MMOL/L (0.4-2.0)
[2018-07-09] MEDS: ACETAMINOPHEN TAB 650MG DOSE (2X325MG) PO (17:12)
[2018-07-09] MEDS: ONDANSETRON 4MG/2ML VIAL (J2405) IV (17:12)
[2018-07-09] MEDS: NS 1,000 ML IV ×3 (17:15→22:48)
[2018-07-09] MEDS: NS 600 ML IV (17:33)
[2018-07-09] MEDS: CIPROFLOXACIN 400 MG in APPROPRIATE DILUENT 1 EA IV (17:34)
[2018-07-09] MEDS ORDERED: GLUCAGON FOR INJ 1 MG VIAL (J1610) SC (19:00)
[2018-07-09] MEDS ORDERED: GLUCOSE 4 GM CHEW TABLET PO (19:00)
[2018-07-09] MEDS ORDERED: DEXTROSE 50% 50 ML SYRINGE IV (19:00)
[2018-07-09 22:55] LABS: BEDSIDE GLUCOSE 173 MG/DL (83-110)
[2018-07-09] MEDS: OCUVITE 1 TAB PO (23:21)
[2018-07-09] MEDS: TAMSULOSIN 0.4 MG CAP PO (23:21)
[2018-07-09] MEDS: cefTRIAXone SOD 1 GM in D5W MINI-BAG PLUS 50 ML IV (23:21)
[2018-07-09] MEDS: MONTELUKAST 10 MG TAB PO (23:22)
[2018-07-09] MEDS ORDERED: POTASSIUM CHLORIDE 10 MEQ SR TABLET As Ordered (23:54)
[2018-07-09] MEDS: POTASSIUM CHLORIDE 10 MEQ SR TABLET PO (23:57)
[2018-07-10] MEDS ORDERED: POTASSIUM CHLORIDE 10 MEQ SR TABLET As Ordered (01:27)
[2018-07-10] MEDS: POTASSIUM CHLORIDE 10 MEQ SR TABLET PO (01:30)
[2018-07-10 06:42] LABS: HEMATOCRIT 40.7 % (42.0-52.0); HEMOGLOBIN 13.6 g/dl (13.5-17.5); MEAN CORPUSCULAR HEMOGLOBIN 28.9 pg (27.0-33.0); MEAN CORPUSCULAR HGB CONC 33.4 g/dl (32.0-36.5); MEAN CORPUSCULAR VOLUME 86.4 fl (80.0-96.0); PLATELET COUNT, AUTOMATED 177 10^3/uL (150-450); RED BLOOD COUNT 4.71 10^6/uL (4.30-6.10); RED CELL DISTRIBUTION WIDTH 12.9 % (11.5-14.5); WHITE BLOOD COUNT 20.4 10^3/uL (4.0-10.0)
[2018-07-10 06:55] LABS: ESTIMATED AVERAGE GLUCOSE 171 MG/DL (60-110); HEMOGLOBIN A1c 7.6 %
[2018-07-10 06:59] LABS: ANION GAP 7 MEQ/L (8-16); BLOOD UREA NITROGEN 14 MG/DL (7-18); CALCIUM LEVEL 8.8 MG/DL (8.8-10.2); CARBON DIOXIDE LEVEL 26 MEQ/L (21-32); CHLORIDE LEVEL 105 MEQ/L (98-107); CREATININE FOR GFR 1.02 MG/DL (0.70-1.30); GLOMERULAR FILTRATION RATE > 60.0 (>42); GLUCOSE, FASTING 189 MG/DL (70-100); POTASSIUM SERUM 3.9 MEQ/L (3.5-5.1); SODIUM LEVEL 138 MEQ/L (136-145)
[2018-07-10] MEDS ORDERED: ASPIRIN 81 MG ENTERIC TAB PO (09:00)
[2018-07-10] MEDS ORDERED: PRIMIDONE 50 MG TAB PO (09:00)
[2018-07-10] MEDS: OCUVITE 1 TAB PO ×2 (09:07→20:09)
[2018-07-10] MEDS: ATORVASTATIN 10 MG TAB PO (09:09)
[2018-07-10] MEDS: OLMESARTAN MEDOXOMIL 20 MG TAB (BENICAR) PO (09:12)
[2018-07-10] MEDS: hydroCHLOROthiazide 12.5 MG CAPSULE PO (09:12)
[2018-07-10] MEDS: LEVEMIR (INSULIN DETEMIR) 1 UNITS/0.01ML SQ (09:15)
[2018-07-10] MEDS: HumaLOG INSULIN (NovoLOG) PER UNIT SC ×3 (09:15→18:05)
[2018-07-10 11:52] LABS: BEDSIDE GLUCOSE 142 MG/DL (83-110)
[2018-07-10] MEDS: ACETAMINOPHEN TAB 650MG DOSE (2X325MG) PO ×2 (14:22→20:09)
[2018-07-10 16:46] LABS: BEDSIDE GLUCOSE 182 MG/DL (83-110)
[2018-07-10] MEDS: cefTRIAXone SOD 1 GM in D5W MINI-BAG PLUS 50 ML IV (20:08)
[2018-07-10] MEDS: TAMSULOSIN 0.4 MG CAP PO (20:09)
[2018-07-10] MEDS: MONTELUKAST 10 MG TAB PO (20:09)
[2018-07-10] MEDS: PRIMIDONE 50 MG TAB PO (20:09)
[2018-07-10 20:18] LABS: BEDSIDE GLUCOSE 133 MG/DL (83-110)
[2018-07-10] MEDS: ONDANSETRON 4MG/2ML VIAL (J2405) IV (21:16)
[2018-07-11] MEDS: ACETAMINOPHEN TAB 650MG DOSE (2X325MG) PO (06:40)
[2018-07-11 06:53] LABS: HEMATOCRIT 38.3 % (42.0-52.0); HEMOGLOBIN 12.9 g/dl (13.5-17.5); MEAN CORPUSCULAR HEMOGLOBIN 28.8 pg (27.0-33.0); MEAN CORPUSCULAR HGB CONC 33.7 g/dl (32.0-36.5); MEAN CORPUSCULAR VOLUME 85.5 fl (80.0-96.0); PLATELET COUNT, AUTOMATED 131 10^3/uL (150-450); RED BLOOD COUNT 4.48 10^6/uL (4.30-6.10); WHITE BLOOD COUNT 8.6 10^3/uL (4.0-10.0)
[2018-07-11 07:08] LABS: ANION GAP 8 MEQ/L (8-16); BLOOD UREA NITROGEN 12 MG/DL (7-18); CALCIUM LEVEL 8.5 MG/DL (8.8-10.2); CARBON DIOXIDE LEVEL 25 MEQ/L (21-32); CHLORIDE LEVEL 102 MEQ/L (98-107); CREATININE FOR GFR 0.81 MG/DL (0.70-1.30); GLOMERULAR FILTRATION RATE > 60.0 (>42); GLUCOSE, FASTING 167 MG/DL (70-100); SODIUM LEVEL 135 MEQ/L (136-145)
[2018-07-11] MEDS: OLMESARTAN MEDOXOMIL 20 MG TAB (BENICAR) PO (08:37)
[2018-07-11] MEDS: HumaLOG INSULIN (NovoLOG) PER UNIT SC ×3 (08:37→17:30)
[2018-07-11] MEDS: LEVEMIR (INSULIN DETEMIR) 1 UNITS/0.01ML SQ (08:38)
[2018-07-11] MEDS: OCUVITE 1 TAB PO ×2 (08:38→20:20)
[2018-07-11] MEDS: ATORVASTATIN 10 MG TAB PO (08:38)
[2018-07-11 11:54] LABS: BEDSIDE GLUCOSE 172 MG/DL (83-110)
[2018-07-11] MEDS: ACETAMINOPHEN 500 MG TAB PO ×2 (14:46→20:21)
[2018-07-11 17:14] LABS: BEDSIDE GLUCOSE 225 MG/DL (83-110)
[2018-07-11] MEDS: cefTRIAXone SOD 1 GM in D5W MINI-BAG PLUS 50 ML IV (20:19)
[2018-07-11] MEDS: PRIMIDONE 50 MG TAB PO (20:20)
[2018-07-11] MEDS: MONTELUKAST 10 MG TAB PO (20:20)
[2018-07-11] MEDS: TAMSULOSIN 0.4 MG CAP PO ×2 (20:21→21:48)
[2018-07-11 21:12] LABS: BEDSIDE GLUCOSE 247 MG/DL (83-110)
[2018-07-12] MEDS ORDERED: IPRATROPIUM 0.5MG/ALBUTEROL 2.5MG INH SOL UD 3ML (DUONEB)(J7620) NEB (03:45)
[2018-07-12] MEDS: IBUPROFEN 600 MG TAB PO (03:46)
[2018-07-12 06:09] LABS: HEMATOCRIT 38.5 % (42.0-52.0); HEMOGLOBIN 13.1 g/dl (13.5-17.5); MEAN CORPUSCULAR HEMOGLOBIN 28.7 pg (27.0-33.0); MEAN CORPUSCULAR VOLUME 84.4 fl (80.0-96.0); PLATELET COUNT, AUTOMATED 133 10^3/uL (150-450); RED BLOOD COUNT 4.56 10^6/uL (4.30-6.10); WHITE BLOOD COUNT 5.8 10^3/uL (4.0-10.0)
[2018-07-12 06:24] LABS: ANION GAP 7 MEQ/L (8-16); BLOOD UREA NITROGEN 14 MG/DL (7-18); CALCIUM LEVEL 8.2 MG/DL (8.8-10.2); CARBON DIOXIDE LEVEL 26 MEQ/L (21-32); CHLORIDE LEVEL 102 MEQ/L (98-107); CREATININE FOR GFR 0.88 MG/DL (0.70-1.30); GLOMERULAR FILTRATION RATE > 60.0 (>42); GLUCOSE, FASTING 223 MG/DL (70-100); POTASSIUM SERUM 3.7 MEQ/L (3.5-5.1); SODIUM LEVEL 135 MEQ/L (136-145)
[2018-07-12] MEDS: LEVEMIR (INSULIN DETEMIR) 1 UNITS/0.01ML SQ (08:50)
[2018-07-12] MEDS: OCUVITE 1 TAB PO ×2 (08:51→21:02)
[2018-07-12] MEDS: ATORVASTATIN 10 MG TAB PO (08:51)
[2018-07-12] MEDS: HumaLOG INSULIN (NovoLOG) PER UNIT SC ×3 (08:51→18:41)
[2018-07-12] MEDS: ACETAMINOPHEN 500 MG TAB PO ×2 (08:55→18:41)
[2018-07-12] MEDS: OLMESARTAN MEDOXOMIL 20 MG TAB (BENICAR) PO (09:00)
[2018-07-12 12:21] LABS: BEDSIDE GLUCOSE 193 MG/DL (83-110)
[2018-07-12] MEDS ORDERED: ACETAMINOPHEN 500 MG TAB PO (14:00)
[2018-07-12 16:37] LABS: BEDSIDE GLUCOSE 171 MG/DL (83-110)
[2018-07-12 20:12] LABS: BEDSIDE GLUCOSE 185 MG/DL (83-110)
[2018-07-12] MEDS: PRIMIDONE 50 MG TAB PO (21:02)
[2018-07-12] MEDS: cefTRIAXone SOD 1 GM in D5W MINI-BAG PLUS 50 ML IV (21:02)
[2018-07-12] MEDS: IBUPROFEN 800 MG TAB PO (21:02)
[2018-07-12] MEDS: MONTELUKAST 10 MG TAB PO (21:02)
[2018-07-12] MEDS: TAMSULOSIN 0.4 MG CAP PO (21:03)
[2018-07-13] MEDS: ACETAMINOPHEN 500 MG TAB PO ×3 (02:14→17:05)
[2018-07-13 06:17] LABS: HEMATOCRIT 38.5 % (42.0-52.0); HEMOGLOBIN 12.9 g/dl (13.5-17.5); MEAN CORPUSCULAR HEMOGLOBIN 28.4 pg (27.0-33.0); MEAN CORPUSCULAR HGB CONC 33.5 g/dl (32.0-36.5); MEAN CORPUSCULAR VOLUME 84.6 fl (80.0-96.0); PLATELET COUNT, AUTOMATED 137 10^3/uL (150-450); RED BLOOD COUNT 4.55 10^6/uL (4.30-6.10)
[2018-07-13 06:41] LABS: ANION GAP 8 MEQ/L (8-16); BLOOD UREA NITROGEN 15 MG/DL (7-18); CALCIUM LEVEL 8.5 MG/DL (8.8-10.2); CARBON DIOXIDE LEVEL 28 MEQ/L (21-32); CHLORIDE LEVEL 104 MEQ/L (98-107); CREATININE FOR GFR 0.69 MG/DL (0.70-1.30); GLOMERULAR FILTRATION RATE > 60.0 (>42); GLUCOSE, FASTING 125 MG/DL (70-100); POTASSIUM SERUM 3.4 MEQ/L (3.5-5.1); SODIUM LEVEL 140 MEQ/L (136-145)
[2018-07-13] MEDS: HumaLOG INSULIN (NovoLOG) PER UNIT SC ×3 (08:07→17:05)
[2018-07-13] MEDS: OCUVITE 1 TAB PO ×2 (08:08→21:07)
[2018-07-13] MEDS: ATORVASTATIN 10 MG TAB PO (08:08)
[2018-07-13] MEDS: IBUPROFEN 800 MG TAB PO ×2 (08:08→21:07)
[2018-07-13] MEDS: LEVEMIR (INSULIN DETEMIR) 1 UNITS/0.01ML SQ (08:08)
[2018-07-13] MEDS: POTASSIUM CHLORIDE 10 MEQ SR TABLET PO (10:11)
[2018-07-13 11:44] LABS: BEDSIDE GLUCOSE 147 MG/DL (83-110)
[2018-07-13 16:37] LABS: BEDSIDE GLUCOSE 182 MG/DL (83-110)
[2018-07-13 20:30] LABS: BEDSIDE GLUCOSE 175 MG/DL (83-110)
[2018-07-13] MEDS: MONTELUKAST 10 MG TAB PO (21:07)
[2018-07-13] MEDS: cefTRIAXone SOD 1 GM in D5W MINI-BAG PLUS 50 ML IV (21:07)
[2018-07-13] MEDS: TAMSULOSIN 0.4 MG CAP PO (21:07)
[2018-07-13] MEDS: PRIMIDONE 50 MG TAB PO (21:07)
[2018-07-14] MEDS: ACETAMINOPHEN 500 MG TAB PO (02:07)
[2018-07-14 06:01] LABS: HEMATOCRIT 37.8 % (42.0-52.0); MEAN CORPUSCULAR HEMOGLOBIN 28.4 pg (27.0-33.0); MEAN CORPUSCULAR HGB CONC 34.4 g/dl (32.0-36.5); MEAN CORPUSCULAR VOLUME 82.5 fl (80.0-96.0); PLATELET COUNT, AUTOMATED 158 10^3/uL (150-450); RED BLOOD COUNT 4.58 10^6/uL (4.30-6.10); WHITE BLOOD COUNT 5.6 10^3/uL (4.0-10.0)
[2018-07-14 06:14] LABS: ANION GAP 6 MEQ/L (8-16); BLOOD UREA NITROGEN 7 MG/DL (7-18); CALCIUM LEVEL 8.3 MG/DL (8.8-10.2); CARBON DIOXIDE LEVEL 29 MEQ/L (21-32); CHLORIDE LEVEL 107 MEQ/L (98-107); CREATININE FOR GFR 0.64 MG/DL (0.70-1.30); GLOMERULAR FILTRATION RATE > 60.0 (>42); GLUCOSE, FASTING 127 MG/DL (70-100); POTASSIUM SERUM 3.6 MEQ/L (3.5-5.1); SODIUM LEVEL 142 MEQ/L (136-145)
[2018-07-14] MEDS ORDERED: ACETAMINOPHEN 500 MG TAB PO (06:30)
[2018-07-14] MEDS: HumaLOG INSULIN (NovoLOG) PER UNIT SC ×3 (08:06→17:13)
[2018-07-14] MEDS: OCUVITE 1 TAB PO ×2 (08:06→20:14)
[2018-07-14] MEDS: LEVEMIR (INSULIN DETEMIR) 1 UNITS/0.01ML SQ (08:06)
[2018-07-14] MEDS: IBUPROFEN 800 MG TAB PO ×2 (08:07→20:14)
[2018-07-14] MEDS: ATORVASTATIN 10 MG TAB PO (08:07)
[2018-07-14 11:28] LABS: BEDSIDE GLUCOSE 207 MG/DL (83-110)
[2018-07-14 16:31] LABS: BEDSIDE GLUCOSE 294 MG/DL (83-110)
[2018-07-14 20:13] LABS: BEDSIDE GLUCOSE 275 MG/DL (83-110)
[2018-07-14] MEDS: cefTRIAXone SOD 1 GM in D5W MINI-BAG PLUS 50 ML IV (20:13)
[2018-07-14] MEDS: PRIMIDONE 50 MG TAB PO (20:13)
[2018-07-14] MEDS: TAMSULOSIN 0.4 MG CAP PO (20:14)
[2018-07-14] MEDS: MONTELUKAST 10 MG TAB PO (20:14)
[2018-07-15 07:02] LABS: HEMATOCRIT 38.7 % (42.0-52.0); MEAN CORPUSCULAR HEMOGLOBIN 28.4 pg (27.0-33.0); MEAN CORPUSCULAR HGB CONC 33.6 g/dl (32.0-36.5); MEAN CORPUSCULAR VOLUME 84.5 fl (80.0-96.0); PLATELET COUNT, AUTOMATED 168 10^3/uL (150-450); RED BLOOD COUNT 4.58 10^6/uL (4.30-6.10); WHITE BLOOD COUNT 4.6 10^3/uL (4.0-10.0)
[2018-07-15 07:19] LABS: ANION GAP 8 MEQ/L (8-16); BLOOD UREA NITROGEN 9 MG/DL (7-18); CALCIUM LEVEL 8.3 MG/DL (8.8-10.2); CARBON DIOXIDE LEVEL 29 MEQ/L (21-32); CHLORIDE LEVEL 106 MEQ/L (98-107); CREATININE FOR GFR 0.57 MG/DL (0.70-1.30); GLOMERULAR FILTRATION RATE > 60.0 (>42); GLUCOSE, FASTING 174 MG/DL (70-100); POTASSIUM SERUM 3.8 MEQ/L (3.5-5.1); SODIUM LEVEL 143 MEQ/L (136-145)
[2018-07-15] MEDS: OCUVITE 1 TAB PO (08:06)
[2018-07-15] MEDS: ATORVASTATIN 10 MG TAB PO (08:06)
[2018-07-15] MEDS: IBUPROFEN 800 MG TAB PO (08:07)
[2018-07-15] MEDS: HumaLOG INSULIN (NovoLOG) PER UNIT SC ×2 (08:07→12:06)
[2018-07-15] MEDS: LEVEMIR (INSULIN DETEMIR) 1 UNITS/0.01ML SQ (08:08)
[2018-07-15 11:40] LABS: BEDSIDE GLUCOSE 224 MG/DL (83-110)
[2018-07-15 15:30] LABS: BEDSIDE GLUCOSE 229 MG/DL (83-110)
== END 2018-07-15 13:30 | disposition home or self-care (01) | DRG 690 ==
LOC: M ED 14:10 → M ED INP 18:51 → M MS5PR 22:45
PROVIDERS: Internal Medicine
DX: N39.0 Urinary tract infection, site not specified (principal); E87.2 Acidosis; N40.1 Benign prostatic hyperplasia with lower urinary tract symptoms; G25.0 Essential tremor; I10 Essential (primary) hypertension; E11.9 Type 2 diabetes mellitus without complications; E78.5 Hyperlipidemia, unspecified; B96.20 Unspecified Escherichia coli [E. coli] as the cause of diseases classified elsewhere; R05 Cough; R09.82 Postnasal drip; R33.9 Retention of urine, unspecified; D35.01 Benign neoplasm of right adrenal gland; D35.02 Benign neoplasm of left adrenal gland; Z79.82 Long term (current) use of aspirin; Z79.4 Long term (current) use of insulin; Z79.899 Other long term (current) drug therapy; Z87.891 Personal history of nicotine dependence

== ENCOUNTER → 2018-11-01 | Outpatient (CLI) | payer MEDICARE, OTHER ==
[~2018-11-01] MED LIST: ASPI-222 PO; ASPI81TA85 PO; ATOR1TAB19 PO; CEFD300CAP PO; FLOM0.4C39 PO; JANU50TA8 PO; LANTINJ4 SQ; MONT10TA2 PO; NORCOTAB PO; OLME1TAB13 PO; PRESCAP PO; PRIM50TA6 PO; TIZA2TA PO; VALS160T PO; VITA50005 PO
--- NOTE | 2018-11-01 11:35 | REP ---
DUPLEX CAROTID SONOGRAPHY: HISTORY: Occlusion and stenosis bilateral carotid arteries. FINDINGS: Incidental note is made of a heterogeneous enlargement of the thyroid lobes bilaterally. Largest nodule on the right measures 3.3 cm in greatest diameter and that on the left measures 2.8 Antegrade flow was observed in both vertebral arteries. RIGHT CAROTID: The right common carotid artery is unremarkable. There is moderate mixed plaquing in the bulb, proximal ICA and proximal ECA. Color flow and spectral Doppler interrogation are unremarkable on the right. Velocity Chart Right Carotid: PSV EDV Right CCA 69 cm/s Right ICA 64 cm/s 16 cm/s Right ECA 79 cm/s Right ICA/CCA ratio normal 0.9. IMPRESSION: 16-49% category narrowing in the right ICA by Doppler velocity criteria. LEFT CAROTID: Left common carotid artery is unremarkable on two-dimensional scanning. There is mixed plaquing in the bulb and proximal ICA on two-dimensional scanning. Color flow and spectral Doppler interrogation are unremarkable on the left. Velocity Chart Left Carotid: PSV EDV Left CCA 73 cm/s Left ICA 78 cm/s 18 cm/s Left ECA 88 cm/s Left ICA/CCA ratio normal 1.07. IMPRESSION: 16-49% category narrowing in the left ICA by Doppler velocity criteria. Incidental note is made of bilateral thyroid nodules with heterogeneous enlargement of the thyroid gland. Electronically Signed by Sandoval Covarrubias MD 11/01/2018 02:33 P
== END ==
LOC: M RAD 09:59
PROVIDERS: ATTEND Surgery Vascular Surgery
DX: I65.23 Occlusion and stenosis of bilateral carotid arteries (principal); E04.2 Nontoxic multinodular goiter

== ENCOUNTER → 2018-11-11 | Outpatient (CLI) | payer MEDICARE, OTHER ==
[~2018-11-11] MED LIST changes: +HYDR-3715 PO; -NORCOTAB PO
[2018-11-11 08:19] LABS: ALBUMIN 3.3 GM/DL (3.2-5.2); ALT/SGPT 19 U/L (12-78); BILIRUBIN,TOTAL 0.5 MG/DL (0.2-1.0); BLOOD UREA NITROGEN 13 MG/DL (7-18); CARBON DIOXIDE LEVEL 30 MEQ/L (21-32); CHLORIDE LEVEL 104 MEQ/L (98-107); CHOLESTEROL LEVEL 130 MG/DL (<200); CREATININE FOR GFR 0.78 MG/DL (0.70-1.30); GLOMERULAR FILTRATION RATE > 60.0 (>42); GLUCOSE, FASTING 139 MG/DL (70-100); HDL CHOLESTEROL 52 MG/DL (>40); LDL CHOLESTEROL 61 MG/DL (<100); NON-HDL-C 78 MG/DL; POTASSIUM SERUM 3.7 MEQ/L (3.5-5.1); SODIUM LEVEL 140 MEQ/L (136-145); TOTAL PROTEIN 6.2 GM/DL (6.4-8.2); TRIGLYCERIDES LEVEL 85 MG/DL (<150)
[2018-11-11 09:36] LABS: HEMOGLOBIN A1c 7.1 %
== END ==
LOC: M LAB 07:06
PROVIDERS: ATTEND Family Medicine
DX: E11.9 Type 2 diabetes mellitus without complications (principal)

== ENCOUNTER → 2018-12-27 | Outpatient (CLI) | payer MEDICARE, OTHER | LOC: M LAB 08:41 | PROVIDERS: ATTEND Physician Assistant Medical | DX: R25.1 Tremor, unspecified (principal) ==

== ENCOUNTER → 2019-03-18 | Outpatient (CLI) | payer MEDICARE, OTHER ==
[2019-03-18 09:16] LABS: ALBUMIN 3.6 GM/DL (3.2-5.2); ALT/SGPT 18 U/L (12-78); BILIRUBIN,TOTAL 0.3 MG/DL (0.2-1.0); BLOOD UREA NITROGEN 12 MG/DL (7-18); CALCIUM LEVEL 9.1 MG/DL (8.8-10.2); CARBON DIOXIDE LEVEL 31 MEQ/L (21-32); CHLORIDE LEVEL 105 MEQ/L (98-107); CHOLESTEROL LEVEL 123 MG/DL (<200); CREATININE FOR GFR 0.78 MG/DL (0.70-1.30); GLOMERULAR FILTRATION RATE > 60.0 (>42); GLUCOSE, FASTING 126 MG/DL (70-100); HDL CHOLESTEROL 53 MG/DL (>40); LDL CHOLESTEROL 55 MG/DL (<100); NON-HDL-C 70 MG/DL; POTASSIUM SERUM 3.7 MEQ/L (3.5-5.1); SODIUM LEVEL 142 MEQ/L (136-145); TOTAL PROTEIN 6.5 GM/DL (6.4-8.2); TRIGLYCERIDES LEVEL 73 MG/DL (<150)
[2019-03-18 10:21] LABS: HEMOGLOBIN A1c 6.8 %
== END ==
LOC: M LAB 07:45
PROVIDERS: ATTEND Family Medicine
DX: E11.9 Type 2 diabetes mellitus without complications (principal)

== ENCOUNTER → 2019-06-19 | Outpatient (CLI) | payer MEDICARE, OTHER ==
[~2019-06-19] MED LIST changes: -ASPI-222 PO; +ASPI-527 PO
[2019-06-19 14:10] LABS: ALBUMIN 3.6 GM/DL (3.2-5.2); ALT/SGPT 25 U/L (12-78); BILIRUBIN,TOTAL 0.4 MG/DL (0.2-1.0); BLOOD UREA NITROGEN 9 MG/DL (7-18); CALCIUM LEVEL 9.4 MG/DL (8.8-10.2); CARBON DIOXIDE LEVEL 31 MEQ/L (21-32); CHLORIDE LEVEL 105 MEQ/L (98-107); CHOLESTEROL LEVEL 137 MG/DL (<200); CHOLESTEROL RISK RATIO 2.403 (<5); CREATININE FOR GFR 0.69 MG/DL (0.70-1.30); GLOMERULAR FILTRATION RATE > 60.0 (>42); GLUCOSE, FASTING 145 MG/DL (70-100); HDL CHOLESTEROL 57 MG/DL (>40); LDL CHOLESTEROL 65 MG/DL (<100); NON-HDL-C 80 MG/DL; POTASSIUM SERUM 3.8 MEQ/L (3.5-5.1); SODIUM LEVEL 142 MEQ/L (136-145); TOTAL PROTEIN 6.9 GM/DL (6.4-8.2); TRIGLYCERIDES LEVEL 76 MG/DL (<150)
[2019-06-19 14:22] LABS: HEMOGLOBIN A1c 6.9 %
== END ==
LOC: M LAB 08:00
PROVIDERS: ATTEND Family Medicine
DX: I10 Essential (primary) hypertension (principal)

== ENCOUNTER → 2019-07-16 | Outpatient (CLI) | payer MEDICARE, OTHER ==
--- NOTE | 2019-07-16 09:18 | REP ---
CAROTID ULTRASOUND: Real-time ultrasound evaluation and duplex Doppler interrogation of the extracranial carotid vasculature is performed. There is mild to moderate plaquing and narrowing in both carotid bulbs extending into the internal and external carotid arteries. Luminal narrowing is less than 50%. There is no evidence of hemodynamically significant stenosis of either internal carotid artery. Normal flow velocities are seen. The vertebral arteries demonstrate normal direction of flow. RIGHT LEFT Peak systolic velocity ICA 81.2 cm/s 89.8 cm/s End diastolic velocity ICA 17.7 cm/s 22.7 cm/s Peak systolic velocity CCA 92.6 cm/s 109 cm/s Peak systolic velocity ECA 144 cm/s 117 cm/s ICA/CCA ratio 0.80 0.82 IMPRESSION: Bilateral luminal narrowing of the internal carotid arteries less than 50%. No evidence of hemodynamically significant stenosis. The findings are similar to the prior study of 11/01/2018. Electronically Signed by Phong Keenan MD 07/16/2019 09:10 A
== END ==
LOC: M RAD 07:02
PROVIDERS: ATTEND Physician Assistant
DX: I65.23 Occlusion and stenosis of bilateral carotid arteries (principal)

== ENCOUNTER → 2019-09-09 | Outpatient (CLI) | payer MEDICARE, OTHER ==
[~2019-09-09] MED LIST changes: -OLME1TAB13 PO; +OLME1TAB45 PO; -VALS160T PO; +VALS160T2 PO
[2019-09-09 09:13] LABS: ALBUMIN 3.6 GM/DL (3.2-5.2); ALT/SGPT 19 U/L (12-78); BILIRUBIN,TOTAL 0.3 MG/DL (0.2-1.0); BLOOD UREA NITROGEN 12 MG/DL (7-18); CARBON DIOXIDE LEVEL 33 MEQ/L (21-32); CHLORIDE LEVEL 102 MEQ/L (98-107); CHOLESTEROL LEVEL 142 MG/DL (<200); CREATININE FOR GFR 0.77 MG/DL (0.70-1.30); GLOMERULAR FILTRATION RATE > 60.0 (>42); GLUCOSE, FASTING 96 MG/DL (70-100); HDL CHOLESTEROL 52 MG/DL (>40); LDL CHOLESTEROL 73 MG/DL (<100); NON-HDL-C 90 MG/DL; POTASSIUM SERUM 3.8 MEQ/L (3.5-5.1); PROSTATIC SPECIFIC AG MONITOR 0.63 NG/ML (< 4.00); SODIUM LEVEL 139 MEQ/L (136-145); THYROID STIMULATING HORMONE 0.415 uIU/ML (0.358-3.740); TOTAL PROTEIN 6.9 GM/DL (6.4-8.2); TRIGLYCERIDES LEVEL 83 MG/DL (<150)
== END ==
LOC: M LAB 07:50
PROVIDERS: ATTEND Family Medicine
DX: E03.9 Hypothyroidism, unspecified (principal); Z12.5 Encounter for screening for malignant neoplasm of prostate

== ENCOUNTER → 2020-01-12 | Outpatient (CLI) | payer MEDICARE, OTHER ==
[~2020-01-12] MED LIST changes: -MONT10TA2 PO; +MONT10TA4 PO
[2020-01-12 11:10] LABS: HEMOGLOBIN A1c 6.4 %
[2020-01-12 11:25] LABS: ALBUMIN 3.2 GM/DL (3.2-5.2); ALT/SGPT 26 U/L (12-78); BILIRUBIN,TOTAL 0.4 MG/DL (0.2-1.0); BLOOD UREA NITROGEN 10 MG/DL (7-18); CARBON DIOXIDE LEVEL 30 MEQ/L (21-32); CHLORIDE LEVEL 103 MEQ/L (98-107); CHOLESTEROL LEVEL 136 MG/DL (<200); CHOLESTEROL RISK RATIO 2.775 (<5); CREATININE FOR GFR 0.68 MG/DL (0.70-1.30); GLOMERULAR FILTRATION RATE > 60.0 (>42); GLUCOSE, FASTING 96 MG/DL (70-100); HDL CHOLESTEROL 49 MG/DL (>40); LDL CHOLESTEROL 69 MG/DL (<100); NON-HDL-C 87 MG/DL; POTASSIUM SERUM 3.8 MEQ/L (3.5-5.1); SODIUM LEVEL 141 MEQ/L (136-145); TOTAL PROTEIN 6.7 GM/DL (6.4-8.2); TRIGLYCERIDES LEVEL 90 MG/DL (<150)
== END ==
LOC: M WUC 08:29
PROVIDERS: ATTEND Family Medicine
DX: Z12.5 Encounter for screening for malignant neoplasm of prostate (principal); E11.9 Type 2 diabetes mellitus without complications
CPT/HCPCS: 36415; 80053; 80061; 83036; G0103

== ENCOUNTER → 2020-03-18 | Outpatient (CLI) | payer MEDICARE, OTHER ==
[~2020-03-18] MED LIST changes: -ASPI81TA85 PO; +ASPI81TA86 PO
--- NOTE | 2020-04-29 16:14 | REP ---
TWO-VIEW CHEST HISTORY: Persistent cough for one month. TECHNIQUE: Two views of the chest were performed and compared to prior study of 08/07/2016, as well as other prior exams. FINDINGS: There is slight elevation of the left hemidiaphragm with adjacent fibrotic change. This is stable. There is no acute infiltrate. The heart is normal in size. There is mild calcification over the thoracic aorta. The mediastinal silhouette is unchanged. There are mild degenerative changes of the spine. IMPRESSION: Stable chronic findings with no evidence of acute infiltrate. MTDD
== END ==
LOC: M RAD 16:00
PROVIDERS: ATTEND Family Medicine
DX: R05 Cough (principal)

== ENCOUNTER → 2020-04-06 | Outpatient (REF) | payer MEDICARE, OTHER | LOC: M LAB REF 15:29 | PROVIDERS: ATTEND Internal Medicine Endocrinology, Diabetes & Metabolism | DX: E27.9 Disorder of adrenal gland, unspecified (principal) ==

== ENCOUNTER → 2020-04-13 | Outpatient (CLI) | payer MEDICARE, OTHER ==
--- NOTE | 2020-05-05 10:08 | REP ---
NONCONTRAST CHEST CT CLINICAL: Cough. TECHNIQUE: Axial noncontrast images from the thoracic inlet to the upper abdomen with coronal and sagittal reformations. COMPARISON: None. FINDINGS: The bilateral lung atkinson are well-aerated and mild emphysematous changes are suggested along with minimal basilar scarring (left greater than right). No consolidation, nodule, or mass lesion. No effusion or pneumothorax. Tracheobronchial tree is patent. No obvious axillary, hilar, or mediastinal adenopathy. Atherosclerotic changes to the thoracic aorta and coronary arteries noted with aortic aneurysm or cardiomegaly. No pericardial effusion. Limited upper abdomen demonstrates normal bilateral adrenal glands. The musculoskeletal structures demonstrate age-related changes without acute osseous abnormality. IMPRESSION: Mild emphysematous changes and minimal basilar scarring. No acute mediastinum or pleural parenchymal process. MTDD
== END ==
LOC: M RAD 09:11
PROVIDERS: ATTEND Nurse Practitioner Family
DX: R05 Cough (principal)

== ENCOUNTER → 2020-06-10 | Outpatient (CLI) | payer MEDICARE, OTHER ==
[2020-06-10 13:37] LABS: HEMOGLOBIN A1c 6.3 %
[2020-06-10 13:45] LABS: ALBUMIN 3.6 GM/DL (3.2-5.2); ALT/SGPT 22 U/L (12-78); BILIRUBIN,TOTAL 0.3 MG/DL (0.2-1.0); BLOOD UREA NITROGEN 8 MG/DL (7-18); CALCIUM LEVEL 9.6 MG/DL (8.8-10.2); CARBON DIOXIDE LEVEL 31 MEQ/L (21-32); CHLORIDE LEVEL 103 MEQ/L (98-107); CHOLESTEROL LEVEL 143 MG/DL (<200); CHOLESTEROL RISK RATIO 2.465 (<5); CREATININE FOR GFR 0.76 MG/DL (0.70-1.30); GLOMERULAR FILTRATION RATE > 60.0 (>42); GLUCOSE, FASTING 110 MG/DL (70-100); HDL CHOLESTEROL 58 MG/DL (>40); LDL CHOLESTEROL 66 MG/DL (<100); NON-HDL-C 85 MG/DL; POTASSIUM SERUM 3.7 MEQ/L (3.5-5.1); SODIUM LEVEL 140 MEQ/L (136-145); TOTAL PROTEIN 6.7 GM/DL (6.4-8.2); TRIGLYCERIDES LEVEL 95 MG/DL (<150)
== END ==
LOC: M WUC 08:51
PROVIDERS: ATTEND Family Medicine
DX: E11.9 Type 2 diabetes mellitus without complications (principal)

== ENCOUNTER → 2020-06-10 | Outpatient (CLI) | payer MEDICARE, OTHER ==
[2020-06-10 13:21] LABS: APPEARANCE, URINE CLEAR (CLEAR); BACTERIA, URINE AUTO NEGATIVE (NEGATIVE); BILIRUBIN, URINE AUTO NEGATIVE (NEGATIVE); BLOOD, URINE BLOOD NEGATIVE (NEGATIVE); COLOR, URINE YELLOW (YELLOW); GLUCOSE, URINE (UA) AUTO NEGATIVE (NEGATIVE); KETONE, URINE AUTO NEGATIVE (NEGATIVE); LEUKOCYTE ESTERASE, URINE AUTO NEGATIVE (NEGATIVE); MUCUS, URINE SMALL (NEGATIVE); NITRITE, URINE AUTO NEGATIVE (NEGATIVE); PROTEIN, URINE AUTO NEGATIVE (NEGATIVE); RBC, URINE AUTO 4 /HPF (0-3); SPECIFIC GRAVITY URINE AUTO 1.009 (1.002-1.035); SQUAMOUS EPITHELIAL CELL UR AU 0 /HPF (0-6); UROBILINOGEN, URINE AUTO 0.2 mg/dL (0.0-2.0); WBC, URINE AUTO 0 /HPF (0-3)
[2020-06-10 13:52] LABS: CREATININE, URINE 60.2 MG/DL; CREATININE,RANDOM URINE 60.2 MG/DL; MALB URINE SIEMENS 17.2 MG/L; MAU/CREAT RATIO 28.5 MCG/MG (0.0-30.0); TOTAL PROTEIN,RANDOM URINE 13.2 MG/DL (0.0-12.0)
== END ==
LOC: M WUC 08:55
PROVIDERS: ATTEND Internal Medicine Nephrology
DX: D47.2 Monoclonal gammopathy (principal); E11.8 Type 2 diabetes mellitus with unspecified complications; Z79.4 Long term (current) use of insulin

== ENCOUNTER → 2020-06-22 | Outpatient (CLI) | payer MEDICARE, OTHER | LOC: M WUC 10:23 | PROVIDERS: ATTEND Family Medicine | DX: R63.4 Abnormal weight loss (principal) ==

== ENCOUNTER → 2020-09-02 | Outpatient (CLI) | payer MEDICARE, OTHER ==
[~2020-09-02] MED LIST changes: -MONT10TA4 PO; +MONT5TAB2 PO; -OLME1TAB45 PO; +OLME1TAB51 PO
--- NOTE | 2020-09-02 12:50 | REP ---
INDICATION: OCCLUSION AND STENOSIS ALTON CAR ART COMPARISON: Comparison study July 16, 2019. Comparison sonography November 03, 2013.. TECHNIQUE: Real-time ultrasound evaluation and duplex Doppler interrogation of the extracranial carotid vasculature is performed. FINDINGS: Antegrade flow is observed in both vertebral arteries. Incidental note is made of multinodular bilateral goiter as previously noted. Right carotid: The right common carotid artery shows diffuse intimal thickening but is otherwise unremarkable. There ismild mixed plaquing in the right carotid bulb and proximal ICA on two-dimensional scanning. Color flow and spectral Doppler interrogation are unremarkable on the right. Velocity chart right carotid: Right CCA PSV: 71 cm/S Right ICA PSV: 77 cm/S Right ICA EDV: 21 cm/S Right ECA PSV: 86 cm/S Right ICA/CCA ratio: 1.08 Left carotid: The left common carotid artery shows diffuse intimal thickening but is otherwise unremarkable. There is mild mixed plaquing in the left carotid bulb and proximal ICA on two-dimensional scanning. Color flow and spectral Doppler interrogation are unremarkable on the left. Velocity chart left carotid: Left CCA PSV: 78 cm/S Left ICA PSV: 84 cm/S Left ICA EDV: 18 cm/S Left ECA PSV: 75 cm/S Left ICA/CCA ratio: 1.07 IMPRESSION: Less than 50% category narrowing in the right internal carotid artery by Doppler velocity criteria. Internal carotid artery velocities have not increased substantially since the prior study. Less than 50% category narrowing in the left ICA by Doppler velocity criteria. Multinodular goiter again noted bilaterally. The largest nodule in the right lobe measures 3.3 cm and the largest in the left 2.8 cm in greatest diameter. <Electronically signed by Ha Covarrubias > 09/02/20 [id number]
== END ==
LOC: M RAD 11:39
PROVIDERS: ATTEND Physician Assistant
DX: I65.23 Occlusion and stenosis of bilateral carotid arteries (principal)

== ENCOUNTER → 2020-11-22 | Outpatient (CLI) | payer MEDICARE, OTHER ==
[~2020-11-22] MED LIST changes: +MONT10TA10 PO; -MONT5TAB2 PO
[2020-11-22 11:59] LABS: ALBUMIN 3.4 GM/DL (3.2-5.2); ALT/SGPT 23 U/L (12-78); BILIRUBIN,TOTAL 0.4 MG/DL (0.2-1.0); BLOOD UREA NITROGEN 13 MG/DL (7-18); CALCIUM LEVEL 9.3 MG/DL (8.8-10.2); CARBON DIOXIDE LEVEL 29 MEQ/L (21-32); CHLORIDE LEVEL 104 MEQ/L (98-107); CHOLESTEROL LEVEL 133 MG/DL (<200); CHOLESTEROL RISK RATIO 2.509 (<5); CREATININE FOR GFR 0.62 MG/DL (0.70-1.30); GLOMERULAR FILTRATION RATE > 60.0 (>42); GLUCOSE, FASTING 101 MG/DL (70-100); HDL CHOLESTEROL 53 MG/DL (>40); LDL CHOLESTEROL 69 MG/DL (<100); NON-HDL-C 80 MG/DL; POTASSIUM SERUM 3.6 MEQ/L (3.5-5.1); SODIUM LEVEL 141 MEQ/L (136-145); THYROID STIMULATING HORMONE 0.384 uIU/ML (0.358-3.740); THYROXINE (T4) 9.3 UG/DL (4.5-12.0); TOTAL PROTEIN 6.6 GM/DL (6.4-8.2); TRIGLYCERIDES LEVEL 56 MG/DL (<150)
[2020-11-22 16:27] LABS: HEMOGLOBIN A1c 6.2 %
== END ==
LOC: M WUC 08:07
PROVIDERS: ATTEND Family Medicine
DX: E11.9 Type 2 diabetes mellitus without complications (principal); E78.5 Hyperlipidemia, unspecified; E03.9 Hypothyroidism, unspecified

== ENCOUNTER → 2020-12-23 | Outpatient (CLI) | payer MEDICARE, OTHER | LOC: M WUC 10:44 | PROVIDERS: ATTEND Physician Assistant Medical | DX: R25.1 Tremor, unspecified (principal) ==

== ENCOUNTER → 2021-02-11 | Outpatient (CLI) | payer MEDICARE, OTHER ==
[2021-02-11 12:29] LABS: ALBUMIN 3.4 GM/DL (3.2-5.2); ALT/SGPT 22 U/L (12-78); BILIRUBIN,TOTAL 0.4 MG/DL (0.2-1.0); BLOOD UREA NITROGEN 11 MG/DL (7-18); CALCIUM LEVEL 8.8 MG/DL (8.8-10.2); CARBON DIOXIDE LEVEL 32 MEQ/L (21-32); CHLORIDE LEVEL 105 MEQ/L (98-107); CHOLESTEROL LEVEL 130 MG/DL (<200); CHOLESTEROL RISK RATIO 2.653 (<5); CREATININE FOR GFR 0.61 MG/DL (0.70-1.30); GLOMERULAR FILTRATION RATE > 60.0 (>42); GLUCOSE, FASTING 116 MG/DL (70-100); HDL CHOLESTEROL 49 MG/DL (>40); LDL CHOLESTEROL 66 MG/DL (<100); NON-HDL-C 81 MG/DL; POTASSIUM SERUM 3.7 MEQ/L (3.5-5.1); SODIUM LEVEL 141 MEQ/L (136-145); TOTAL PROTEIN 6.5 GM/DL (6.4-8.2); TRIGLYCERIDES LEVEL 73 MG/DL (<150)
[2021-02-11 12:55] LABS: HEMOGLOBIN A1c 6.3 %
== END ==
LOC: M WUC 09:02
PROVIDERS: ATTEND Family Medicine
DX: Z12.5 Encounter for screening for malignant neoplasm of prostate (principal); E11.9 Type 2 diabetes mellitus without complications
CPT/HCPCS: 36415; 80053; 80061; 83036; G0103

== ENCOUNTER → 2021-03-28 | Outpatient (CLI) | payer MEDICARE, OTHER ==
--- NOTE | 2021-03-28 12:03 | REP ---
INDICATION: HX OF NICOTINE DEPENDENCE. COMPARISON: Standard noncontrast enhanced chest CT of 04/13/2020 TECHNIQUE: Axial noncontrast images from the thoracic inlet to the upper abdomen using low-dose lung screening technique (LDCT). As per the protocol only lung window images were sent to the read station for interpretation. FINDINGS: The lung atkinson are unchanged. There are no new abnormal nodules, masses, or opacities. There is an incidental calcified granuloma in the left lower lobe. Stable bibasilar curvilinear densities are again noted consistent with chronic scarring. The lung atkinson are again seen to be mildly hyperexpanded status quo. There is cylindrical bronchiectasis status quo. Grossly, the mediastinum and pulmonary nguyễn are unchanged. Grossly, the imaged upper abdomen and imaged osseous structures are unchanged. There does appear to be thyroid gland enlargement with multiple thyroid gland calcifications. This was seen on the prior CT and is likely stable. IMPRESSION: Lung rads category 1 S. Due to incomplete assessment of the presumed thyroid gland disorder further evaluation with thyroid ultrasonography is warranted. <Electronically signed by Lester Skinner > 03/28/21 1200
== END ==
LOC: M RAD 11:30
PROVIDERS: ATTEND Nurse Practitioner Family
DX: Z87.891 Personal history of nicotine dependence (principal)

== ENCOUNTER → 2021-05-10 | Outpatient (CLI) | payer MEDICARE, OTHER ==
[2021-05-10 11:14] LABS: HEMOGLOBIN A1c 6.1 %
[2021-05-10 12:38] LABS: ALT/SGPT 22 U/L (12-78); BILIRUBIN,TOTAL 0.4 MG/DL (0.2-1.0); BLOOD UREA NITROGEN 12 MG/DL (7-18); CALCIUM LEVEL 9.6 MG/DL (8.8-10.2); CARBON DIOXIDE LEVEL 32 MEQ/L (21-32); CHLORIDE LEVEL 104 MEQ/L (98-107); CREATININE FOR GFR 0.64 MG/DL (0.70-1.30); GLOMERULAR FILTRATION RATE > 60.0 (>42); GLUCOSE, FASTING 147 MG/DL (70-100); POTASSIUM SERUM 3.8 MEQ/L (3.5-5.1); SODIUM LEVEL 140 MEQ/L (136-145)
[2021-05-10 12:39] LABS: ALBUMIN 3.3 GM/DL (3.2-5.2); CHOLESTEROL LEVEL 128 MG/DL (<200); CHOLESTEROL RISK RATIO 2.327 (<5); HDL CHOLESTEROL 55 MG/DL (>40); LDL CHOLESTEROL 57 MG/DL (<100); NON-HDL-C 73 MG/DL; TOTAL PROTEIN 6.6 GM/DL (6.4-8.2); TRIGLYCERIDES LEVEL 81 MG/DL (<150)
== END ==
LOC: M WUC 08:37
PROVIDERS: ATTEND Family Medicine
DX: E11.9 Type 2 diabetes mellitus without complications (principal); E78.5 Hyperlipidemia, unspecified

== ENCOUNTER → 2021-09-21 | Outpatient (CLI) | payer MEDICARE, OTHER ==
[~2021-09-21] MED LIST changes: -MONT10TA10 PO; +MONT10TA97 PO
[2021-09-21 12:43] LABS: ALBUMIN 3.6 GM/DL (3.2-5.2); ALT/SGPT 20 U/L (12-78); BILIRUBIN,TOTAL 0.3 MG/DL (0.2-1.0); BLOOD UREA NITROGEN 16 MG/DL (7-18); CALCIUM LEVEL 9.5 MG/DL (8.8-10.2); CARBON DIOXIDE LEVEL 32 MEQ/L (21-32); CHLORIDE LEVEL 108 MEQ/L (98-107); CHOLESTEROL LEVEL 136 MG/DL (<200); CHOLESTEROL RISK RATIO 2.518 (<5); CREATININE FOR GFR 0.72 MG/DL (0.70-1.30); GLOMERULAR FILTRATION RATE > 60.0 (>42); GLUCOSE, FASTING 134 MG/DL (70-100); HDL CHOLESTEROL 54 MG/DL (>40); LDL CHOLESTEROL 62 MG/DL (<100); NON-HDL-C 82 MG/DL; POTASSIUM SERUM 3.9 MEQ/L (3.5-5.1); SODIUM LEVEL 145 MEQ/L (136-145); THYROID STIMULATING HORMONE 0.451 uIU/ML (0.358-3.740); TOTAL PROTEIN 6.9 GM/DL (6.4-8.2); TRIGLYCERIDES LEVEL 98 MG/DL (<150)
[2021-09-21 12:55] LABS: HEMOGLOBIN A1c 6.2 %
== END ==
LOC: M WUC 08:17
PROVIDERS: ATTEND Family Medicine
DX: E11.9 Type 2 diabetes mellitus without complications (principal); E03.9 Hypothyroidism, unspecified

== ENCOUNTER → 2022-02-09 | Outpatient (CLI) | payer MEDICARE, OTHER ==
[2022-02-09 12:56] LABS: BLOOD UREA NITROGEN 12 MG/DL (7-18); CREATININE FOR GFR 0.71 MG/DL (0.70-1.30); GLOMERULAR FILTRATION RATE > 60.0 (>42)
== END ==
LOC: M LAB 11:46
PROVIDERS: ATTEND Student in an Organized Health Care Education/Training Program
DX: R63.4 Abnormal weight loss (principal); R63.0 Anorexia

== ENCOUNTER → 2022-02-09 | Outpatient (CLI) | payer MEDICARE, OTHER ==
[2022-02-09 12:38] LABS: BASO # 0.1 10^3/uL (0.0-0.2); BASO % 0.5 % (0.0-1.0); EOS # 0.1 10^3/uL (0.0-0.5); EOS % 0.5 % (0.0-3.0); HEMATOCRIT 46.1 % (42.0-52.0); HEMOGLOBIN 15.6 g/dl (13.5-17.5); LYMPH # 2.3 10^3/uL (1.5-5.0); LYMPH % 24.9 % (24.0-44.0); MEAN CORPUSCULAR HEMOGLOBIN 29.9 pg (27.0-33.0); MEAN CORPUSCULAR HGB CONC 33.8 g/dl (32.0-36.5); MEAN CORPUSCULAR VOLUME 88.5 fl (80.0-96.0); MONO # 0.9 10^3/uL (0.0-0.8); MONO % 9.5 % (2.0-8.0); NEUTROPHILS # 6.1 10^3/uL (1.5-8.5); NEUTROPHILS % 64.4 % (36.0-66.0); PLATELET COUNT, AUTOMATED 242 10^3/uL (150-450); RED BLOOD COUNT 5.21 10^6/uL (4.30-6.10); WHITE BLOOD COUNT 9.4 10^3/uL (4.0-10.0)
[2022-02-09 13:01] LABS: C REACTIVE PROTEIN QUANTITATIV 1.61 MG/DL (0.00-0.30); RHEUMATOID FACTOR QUANT < 10.0 IU/ML (<15.0); URIC ACID 3.6 MG/DL (3.5-7.2)
[2022-02-09 13:35] LABS: ERYTHROCYTE SEDIMENTATION RATE 5 mm/hr (0-20)
[2022-02-10 18:09] LABS: IgG P18 AB Absent (.); IgG P23 AB Absent (.); IgG P28 AB Present (.); IgG P30 AB Absent (.); IgG P39 AB Present (.); IgG P41 AB Absent (.); IgG P45 AB Absent (.); IgG P66 AB Absent (.); IgG P93 AB Present (.); IgM P23 AB Absent (.); IgM P39 AB Absent (.); IgM P41 AB Absent (.); LYME IgG WB INTERPRETATION Negative (.); LYME IgM WB INTERPRETATION Negative (.)
== END ==
LOC: M LAB 11:49
PROVIDERS: ATTEND Physician Assistant
DX: M17.11 Unilateral primary osteoarthritis, right knee (principal)

== ENCOUNTER → 2022-02-16 | Outpatient (CLI) | payer MEDICARE, OTHER ==
[~2022-02-16] MED LIST changes: +ISOVUE-370 76% 100ML VIAL As Ordered ONE
== END ==
LOC: M RAD 12:28
PROVIDERS: ATTEND Student in an Organized Health Care Education/Training Program
DX: R63.4 Abnormal weight loss (principal); R63.0 Anorexia
CPT/HCPCS: 74170; Q9967

== ENCOUNTER → 2022-02-20 | Outpatient (CLI) | payer MEDICARE, OTHER ==
[~2022-02-20] MED LIST changes: -ISOVUE-370 76% 100ML VIAL As Ordered ONE
[2022-02-20 11:14] LABS: HEMOGLOBIN A1c 6.4 %
[2022-02-20 12:12] LABS: ALBUMIN 3.4 GM/DL (3.2-5.2); ALT/SGPT 38 U/L (12-78); BILIRUBIN,TOTAL 0.4 MG/DL (0.2-1.0); BLOOD UREA NITROGEN 12 MG/DL (7-18); CALCIUM LEVEL 9.2 MG/DL (8.8-10.2); CARBON DIOXIDE LEVEL 29 MEQ/L (21-32); CHLORIDE LEVEL 105 MEQ/L (98-107); CHOLESTEROL LEVEL 114 MG/DL (<200); CHOLESTEROL RISK RATIO 2.111 (<5); CREATININE FOR GFR 0.59 MG/DL (0.70-1.30); GLOMERULAR FILTRATION RATE > 60.0 (>42); GLUCOSE, FASTING 120 MG/DL (70-100); HDL CHOLESTEROL 54 MG/DL (>40); LDL CHOLESTEROL 49 MG/DL (<100); NON-HDL-C 60 MG/DL; POTASSIUM SERUM 3.8 MEQ/L (3.5-5.1); PROSTATIC SPECIFIC AG MONITOR 0.66 NG/ML (< 4.00); SODIUM LEVEL 140 MEQ/L (136-145); THYROID STIMULATING HORMONE 0.384 uIU/ML (0.358-3.740); TOTAL PROTEIN 6.6 GM/DL (6.4-8.2); TRIGLYCERIDES LEVEL 56 MG/DL (<150)
== END ==
LOC: M WUC 08:41
PROVIDERS: ATTEND Family Medicine
DX: Z12.5 Encounter for screening for malignant neoplasm of prostate (principal); E11.9 Type 2 diabetes mellitus without complications; E78.5 Hyperlipidemia, unspecified; E03.9 Hypothyroidism, unspecified

== ENCOUNTER → 2022-02-22 | Outpatient (CLI) | payer MEDICARE, OTHER | LOC: M WUC 09:34 | PROVIDERS: ATTEND Family Medicine | DX: J44.9 Chronic obstructive pulmonary disease, unspecified (principal) ==

== ENCOUNTER → 2022-03-13 | Outpatient (CLI) | payer MEDICARE, OTHER | LOC: M LABSMTC 09:48 | PROVIDERS: ATTEND Internal Medicine | DX: Z01.812 Encounter for preprocedural laboratory examination (principal) ==

== ENCOUNTER → 2022-03-30 | Outpatient (CLI) | payer MEDICARE, OTHER | LOC: M RAD 10:35 | PROVIDERS: ATTEND Student in an Organized Health Care Education/Training Program | DX: R63.4 Abnormal weight loss (principal); R63.0 Anorexia | CPT/HCPCS: 78264; A9541 ==

== ENCOUNTER → 2022-04-20 | Outpatient (CLI) | payer MEDICARE, OTHER | LOC: M RAD 08:41 | PROVIDERS: ATTEND Internal Medicine Pulmonary Disease | DX: Z87.891 Personal history of nicotine dependence (principal) ==

== ENCOUNTER → 2022-04-23 | Outpatient (CLI) | payer MEDICARE, OTHER | LOC: M LABSMTC 10:40 | PROVIDERS: ATTEND Specialist | DX: Z11.52 Encounter for screening for COVID-19 (principal) ==

== ENCOUNTER → 2022-07-03 | Outpatient (CLI) | payer MEDICARE, OTHER ==
[2022-07-03 13:39] LABS: CHLORIDE LEVEL 102 MMOL/L (98-107); POTASSIUM SERUM 3.7 MMOL/L (3.5-5.1); SODIUM LEVEL 142 MMOL/L (136-145)
[2022-07-03 13:40] LABS: ALBUMIN 3.7 G/DL (3.2-5.2); CARBON DIOXIDE LEVEL 30 MMOL/L (20-31)
[2022-07-03 13:45] LABS: BLOOD UREA NITROGEN 12 MG/DL (9-23); CALCIUM LEVEL 9.2 MG/DL (8.3-10.6); GLUCOSE, FASTING 121 MG/DL (74-106); TRIGLYCERIDES LEVEL 62 MG/DL (<150)
[2022-07-03 13:46] LABS: ALKALINE PHOSPHATASE 112 U/L (46-116); BILIRUBIN,TOTAL 0.5 MG/DL (0.3-1.2); HDL CHOLESTEROL 57.4 MG/DL (>40)
[2022-07-03 13:47] LABS: ALT/SGPT 20 U/L (7.0-40); AST/SGOT 19 U/L (<34); CHOLESTEROL LEVEL 135 MG/DL (<200); CHOLESTEROL RISK RATIO 2.35 (<5); CREATININE FOR GFR 0.56 MG/DL (0.70-1.30); GLOMERULAR FILTRATION RATE > 60.0 (>42); LDL CHOLESTEROL 65.2 MG/DL (<100); NON-HDL-C 78 MG/DL; TOTAL PROTEIN 6.8 G/DL (5.7-8.2)
== END ==
LOC: M WUC 09:11
PROVIDERS: ATTEND Family Medicine
DX: E11.9 Type 2 diabetes mellitus without complications (principal)

== ENCOUNTER → 2022-09-26 | Outpatient (CLI) | payer MEDICARE, OTHER ==
[2022-09-26 11:09] LABS: HEMOGLOBIN A1c 6.6 % (4.0-6.0)
[2022-09-26 11:11] LABS: ALBUMIN 3.5 G/DL (3.2-5.2); ALKALINE PHOSPHATASE 116 U/L (46-116); ALT/SGPT 28 U/L (7.0-40); AST/SGOT 25 U/L (<34); BILIRUBIN,TOTAL 0.5 MG/DL (0.3-1.2); BLOOD UREA NITROGEN 18 MG/DL (9-23); CALCIUM LEVEL 8.9 MG/DL (8.3-10.6); CARBON DIOXIDE LEVEL 33 MMOL/L (20-31); CHLORIDE LEVEL 103 MMOL/L (98-107); CHOLESTEROL LEVEL 120 MG/DL (<200); GLOMERULAR FILTRATION RATE > 60.0 (>42); GLUCOSE, FASTING 100 MG/DL (74-106); HDL CHOLESTEROL 52.1 MG/DL (>40); LDL CHOLESTEROL 56.7 MG/DL (<100); NON-HDL-C 68 MG/DL; POTASSIUM SERUM 3.8 MMOL/L (3.5-5.1); SODIUM LEVEL 140 MMOL/L (136-145); THYROID STIMULATING HORMONE 0.844 uIU/ML (0.55-4.78); TOTAL PROTEIN 6.5 G/DL (5.7-8.2); TRIGLYCERIDES LEVEL 56 MG/DL (<150)
== END ==
LOC: M WUC 09:14
PROVIDERS: ATTEND Internal Medicine
DX: E78.5 Hyperlipidemia, unspecified (principal)

== ENCOUNTER 2022-10-15 19:11 | Inpatient (IN) | payer MEDICARE, OTHER ==
[~2022-10-15] VITALS: Ht 185.4 cm; Wt 72.0 kg
[2022-10-15] MEDS ORDERED: ACETAMINOPHEN TAB 650MG DOSE (2X325MG) PO ONE (20:05)
[2022-10-15 20:14] LABS: BASO % 0.3 % (0.0-1.0); EOS % 0.2 % (0.0-3.0); HEMATOCRIT 43.2 % (42.0-52.0); HEMOGLOBIN 14.6 g/dl (13.5-17.5); LYMPH # 1.1 10^3/uL (1.5-5.0); LYMPH % 9.4 % (24.0-44.0); MEAN CORPUSCULAR HEMOGLOBIN 30.3 pg (27.0-33.0); MEAN CORPUSCULAR HGB CONC 33.8 g/dl (32.0-36.5); MEAN CORPUSCULAR VOLUME 89.6 fl (80.0-96.0); MONO % 8.7 % (2.0-8.0); NEUTROPHILS # 9.3 10^3/uL (1.5-8.5); NEUTROPHILS % 81.2 % (36.0-66.0); PLATELET COUNT, AUTOMATED 203 10^3/uL (150-450); RED BLOOD COUNT 4.82 10^6/uL (4.30-6.10); WHITE BLOOD COUNT 11.4 10^3/uL (4.0-10.0)
[2022-10-15] MEDS ORDERED: NS 1,000 ML IV ONE (20:25)
[2022-10-15 20:35] LABS: LIPASE 32 U/L (12-53)
[2022-10-15 20:37] LABS: ALBUMIN 3.5 G/DL (3.2-5.2); ALKALINE PHOSPHATASE 109 U/L (46-116); ALT/SGPT 23 U/L (7.0-40); AST/SGOT 21 U/L (<34); BILIRUBIN,DIRECT 0.1 MG/DL (<0.4); BILIRUBIN,TOTAL 0.5 MG/DL (0.3-1.2); BLOOD UREA NITROGEN 11 MG/DL (9-23); CALCIUM LEVEL 8.9 MG/DL (8.3-10.6); CARBON DIOXIDE LEVEL 30 MMOL/L (20-31); CHLORIDE LEVEL 103 MMOL/L (98-107); CREATININE FOR GFR 0.49 MG/DL (0.70-1.30); GLOMERULAR FILTRATION RATE > 60.0 (>42); GLUCOSE, FASTING 104 MG/DL (74-106); POTASSIUM SERUM 3.7 MMOL/L (3.5-5.1); SODIUM LEVEL 139 MMOL/L (136-145); TOTAL PROTEIN 6.5 G/DL (5.7-8.2)
[2022-10-15] MEDS: FINASTERIDE 5MG TAB PO SCH (21:00)
[2022-10-15] MEDS: MONTELUKAST 10 MG TAB PO SCH (21:00)
[2022-10-15] MEDS: TAMSULOSIN 0.4 MG CAP PO SCH (21:00)
[2022-10-15] MEDS ORDERED: ISOVUE-370 76% 100ML VIAL As Ordered ONE (21:17)
[2022-10-16] MEDS ORDERED: ZINC50TA26 PO (02:04)
[2022-10-16] MEDS ORDERED: ADVA115A PO (02:04)
[2022-10-16] MEDS ORDERED: VITA200048 PO (02:04)
[2022-10-16] MEDS ORDERED: FINA5TAB2 PO (02:04)
[2022-10-16] MEDS ORDERED: FLON1SPR NARES (02:04)
[2022-10-16] MEDS ORDERED: ASPI81TA26 PO (02:04)
[2022-10-16] MEDS ORDERED: PRIM250T8 PO (02:04)
[2022-10-16] MEDS ORDERED: KETO2CR TOP (02:04)
[2022-10-16] MEDS ORDERED: TAMS1CAP17 PO (02:04)
[2022-10-16] MEDS ORDERED: PRES10CA2 PO (02:04)
[2022-10-16] MEDS ORDERED: GLUCAGON INJ 1MG VIAL SC PRN (02:05)
[2022-10-16] MEDS ORDERED: DEXTROSE 50% 50ML SYRINGE IV PRN (02:05)
[2022-10-16] MEDS ORDERED: KETOROLAC 30 MG/ML 1ML VIAL IV PRN (02:05)
[2022-10-16] MEDS ORDERED: PERCOCET 5MG/325MG TAB PO PRN (02:05)
[2022-10-16] MEDS ORDERED: ACETAMINOPHEN TAB 650MG DOSE (2X325MG) PO PRN (02:05)
[2022-10-16] MEDS ORDERED: GLUCOSE 4GM CHEW TABLET PO PRN (02:05)
[2022-10-16] MEDS ORDERED: HOME MED LIST COMPLETE! XX SCH (02:10)
[2022-10-16] MEDS ORDERED: PILL CUTTER 1 EACH XX PRN (02:25)
[2022-10-16 04:13] VITALS: BP 152/68
[2022-10-16 06:21] LABS: HEMATOCRIT 42.5 % (42.0-52.0); HEMOGLOBIN 14.3 g/dl (13.5-17.5); MEAN CORPUSCULAR HEMOGLOBIN 30.4 pg (27.0-33.0); MEAN CORPUSCULAR HGB CONC 33.6 g/dl (32.0-36.5); MEAN CORPUSCULAR VOLUME 90.2 fl (80.0-96.0); PLATELET COUNT, AUTOMATED 193 10^3/uL (150-450); RED BLOOD COUNT 4.71 10^6/uL (4.30-6.10); WHITE BLOOD COUNT 10.6 10^3/uL (4.0-10.0)
[2022-10-16] MEDS: ADVAIR HFA 115/21MCG INHALER INH SCH ×2 (06:22→20:00)
[2022-10-16 06:34] LABS: INR 1.2; PROTHROMBIN TIME 15.5 SECONDS (12.5-14.5)
[2022-10-16 06:35] LABS: PARTIAL THROMBOPLASTIN TIME 29.5 SECONDS (24.8-34.2)
[2022-10-16 06:44] LABS: BLOOD UREA NITROGEN 9 MG/DL (9-23); CALCIUM LEVEL 8.5 MG/DL (8.3-10.6); CARBON DIOXIDE LEVEL 30 MMOL/L (20-31); CHLORIDE LEVEL 105 MMOL/L (98-107); CREATININE FOR GFR 0.43 MG/DL (0.70-1.30); GLOMERULAR FILTRATION RATE > 60.0 (>42); GLUCOSE, FASTING 136 MG/DL (74-106); MAGNESIUM LEVEL 1.6 MG/DL (1.8-2.4); POTASSIUM SERUM 3.4 MMOL/L (3.5-5.1); SODIUM LEVEL 142 MMOL/L (136-145)
[2022-10-16] MEDS: ASPIRIN 81MG ENTERIC TABLET PO SCH (08:55)
[2022-10-16] MEDS ORDERED: hydroCHLOROthiazide 12.5 MG CAPSULE PO SCH (09:00)
[2022-10-16] MEDS: ACETAMINOPHEN 500 MG TAB PO SCH ×3 (09:00→21:22)
[2022-10-16] MEDS: PRIMIDONE 250 MG TAB PO SCH ×2 (09:02→21:21)
[2022-10-16] MEDS: INSULIN LISPRO (NovoLOG) PER UNIT SC SCH ×4 (09:03→20:45)
[2022-10-16] MEDS: LEVEMIR (INSULIN DETEMIR) 1 UNITS/0.01ML SQ SCH (09:04)
[2022-10-16] MEDS: tiZANidine 4 MG TAB PO SCH (09:04)
[2022-10-16] MEDS: ENOXAPARIN 40MG/0.4ML SYRINGE (J1650 PER 10MG) SC SCH (09:04)
[2022-10-16] MEDS ORDERED: traMADol 50 MG TAB PO PRN (09:05)
[2022-10-16] MEDS: ATORVASTATIN 10 MG TAB PO SCH (09:05)
[2022-10-16] MEDS: FLUTICASONE PROP 0.05% NASAL SPRAY 16 GM (FLONASE) NARES SCH (09:05)
[2022-10-16] MEDS: KETOCONAZOLE 2% CREAM TOP SCH ×2 (09:05→21:23)
[2022-10-16] MEDS: LIDOCAINE 5% (LIDODERM) PATCH TD SCH (09:15)
[2022-10-16] MEDS: OLMESARTAN MEDOXOMIL 20 MG TAB (BENICAR) PO SCH (09:30)
[2022-10-16] MEDS ORDERED: POTASSIUM CHLORIDE 10MEQ SR TABLET PO ONE (10:50)
[2022-10-16] MEDS ORDERED: MAG SULF 1GM/100ML (MAG RUN) 1 GM in IV 1 EA IV ONE (11:00)
[2022-10-16 14:00] VITALS: BP 127/55
[2022-10-16] MEDS: MAGNESIUM OXIDE 400MG TAB (MAG-OX) PO SCH (15:20)
[2022-10-16] MEDS: KETOROLAC 30 MG/ML 1ML VIAL IV SCH ×2 (15:22→21:22)
[2022-10-16 20:24] VITALS: BP 130/63
[2022-10-16] MEDS: GABAPENTIN 100 MG CAP PO SCH (21:22)
[2022-10-16] MEDS: TAMSULOSIN 0.4 MG CAP PO SCH (21:22)
[2022-10-16] MEDS: FINASTERIDE 5MG TAB PO SCH (21:22)
[2022-10-16] MEDS: MONTELUKAST 10 MG TAB PO SCH (21:24)
[2022-10-17] MEDS: KETOROLAC 30 MG/ML 1ML VIAL IV SCH (05:25)
[2022-10-17 05:56] VITALS: BP 163/82
[2022-10-17] MEDS: ADVAIR HFA 115/21MCG INHALER INH SCH ×2 (07:25→20:06)
[2022-10-17] MEDS: LEVEMIR (INSULIN DETEMIR) 1 UNITS/0.01ML SQ SCH (08:59)
[2022-10-17] MEDS: ENOXAPARIN 40MG/0.4ML SYRINGE (J1650 PER 10MG) SC SCH (08:59)
[2022-10-17] MEDS ORDERED: PNEUMOCOCCAL VACCINE 0.5ML SYRINGE (PNEUMOVAX 23) IM.IMMUN ONE (09:00)
[2022-10-17] MEDS: KETOCONAZOLE 2% CREAM TOP SCH ×2 (09:00→20:37)
[2022-10-17] MEDS: FLUTICASONE PROP 0.05% NASAL SPRAY 16 GM (FLONASE) NARES SCH (09:01)
[2022-10-17] MEDS: ACETAMINOPHEN 500 MG TAB PO SCH ×3 (09:03→20:59)
[2022-10-17] MEDS: MAGNESIUM OXIDE 400MG TAB (MAG-OX) PO SCH (09:03)
[2022-10-17] MEDS: PRIMIDONE 250 MG TAB PO SCH ×2 (09:03→20:36)
[2022-10-17] MEDS: ATORVASTATIN 10 MG TAB PO SCH (09:04)
[2022-10-17] MEDS: ASPIRIN 81MG ENTERIC TABLET PO SCH (09:05)
[2022-10-17] MEDS: OLMESARTAN MEDOXOMIL 20 MG TAB (BENICAR) PO SCH (09:05)
[2022-10-17] MEDS: GABAPENTIN 100 MG CAP PO SCH ×2 (09:06→20:36)
[2022-10-17] MEDS: LIDOCAINE 5% (LIDODERM) PATCH TD SCH (09:07)
[2022-10-17 09:12] LABS: BASO % 0.5 % (0.0-1.0); EOS # 0.1 10^3/uL (0.0-0.5); HEMATOCRIT 44.2 % (42.0-52.0); HEMOGLOBIN 14.9 g/dl (13.5-17.5); LYMPH # 2.7 10^3/uL (1.5-5.0); LYMPH % 32.4 % (24.0-44.0); MEAN CORPUSCULAR HEMOGLOBIN 30.6 pg (27.0-33.0); MEAN CORPUSCULAR HGB CONC 33.7 g/dl (32.0-36.5); MEAN CORPUSCULAR VOLUME 90.8 fl (80.0-96.0); MONO % 11.6 % (2.0-8.0); NEUTROPHILS # 4.5 10^3/uL (1.5-8.5); NEUTROPHILS % 54.4 % (36.0-66.0); PLATELET COUNT, AUTOMATED 188 10^3/uL (150-450); RED BLOOD COUNT 4.87 10^6/uL (4.30-6.10); WHITE BLOOD COUNT 8.3 10^3/uL (4.0-10.0)
[2022-10-17 09:27] LABS: BLOOD UREA NITROGEN 13 MG/DL (9-23); CALCIUM LEVEL 8.8 MG/DL (8.3-10.6); CARBON DIOXIDE LEVEL 29 MMOL/L (20-31); CHLORIDE LEVEL 103 MMOL/L (98-107); CREATININE FOR GFR 0.46 MG/DL (0.70-1.30); GLOMERULAR FILTRATION RATE > 60.0 (>42); GLUCOSE, FASTING 259 MG/DL (74-106); POTASSIUM SERUM 3.8 MMOL/L (3.5-5.1); SODIUM LEVEL 139 MMOL/L (136-145)
[2022-10-17] MEDS: INSULIN LISPRO (NovoLOG) PER UNIT SC SCH ×4 (10:18→20:30)
[2022-10-17] MEDS: tiZANidine 4 MG TAB PO SCH (10:18)
[2022-10-17 14:00] VITALS: BP 151/67
[2022-10-17] MEDS ORDERED: ACET-683 PO (15:16)
[2022-10-17] MEDS ORDERED: TRAM50TA2 PO ×2 (15:16→15:17)
[2022-10-17 20:00] VITALS: BP 157/74
[2022-10-17] MEDS: FINASTERIDE 5MG TAB PO SCH (20:36)
[2022-10-17] MEDS: TAMSULOSIN 0.4 MG CAP PO SCH (20:36)
[2022-10-17] MEDS: MONTELUKAST 10 MG TAB PO SCH (20:36)
[2022-10-18] MEDS ORDERED: LIDOCAINE 2% 5ML JELLY UROJET TOP ONE (01:00)
[2022-10-18] MEDS ORDERED: TAMSULOSIN 0.4 MG CAP PO ONE (01:00)
[2022-10-18 06:10] VITALS: BP 156/73
[2022-10-18] MEDS: ADVAIR HFA 115/21MCG INHALER INH SCH (07:39)
[2022-10-18] MEDS: tiZANidine 4 MG TAB PO SCH (08:15)
[2022-10-18] MEDS: ATORVASTATIN 10 MG TAB PO SCH (08:15)
[2022-10-18] MEDS: GABAPENTIN 100 MG CAP PO SCH (08:15)
[2022-10-18] MEDS: ASPIRIN 81MG ENTERIC TABLET PO SCH (08:15)
[2022-10-18] MEDS: MAGNESIUM OXIDE 400MG TAB (MAG-OX) PO SCH (08:15)
[2022-10-18 08:16] VITALS: BP 156/73
[2022-10-18] MEDS: OLMESARTAN MEDOXOMIL 20 MG TAB (BENICAR) PO SCH (08:16)
[2022-10-18] MEDS: ENOXAPARIN 40MG/0.4ML SYRINGE (J1650 PER 10MG) SC SCH (08:18)
[2022-10-18] MEDS: ACETAMINOPHEN 500 MG TAB PO SCH (08:18)
[2022-10-18] MEDS: INSULIN LISPRO (NovoLOG) PER UNIT SC SCH ×2 (08:18→12:44)
[2022-10-18] MEDS: LEVEMIR (INSULIN DETEMIR) 1 UNITS/0.01ML SQ SCH (08:19)
[2022-10-18] MEDS: FLUTICASONE PROP 0.05% NASAL SPRAY 16 GM (FLONASE) NARES SCH (08:19)
[2022-10-18] MEDS: LIDOCAINE 5% (LIDODERM) PATCH TD SCH (08:19)
[2022-10-18] MEDS: KETOCONAZOLE 2% CREAM TOP SCH (08:20)
[2022-10-18] MEDS: PRIMIDONE 250 MG TAB PO SCH (08:20)
[2022-10-18 10:20] VITALS: BP 122/58
[2022-10-19 00:59] LABS: TOTAL 25(OH) VITAMIN D 53.8 NG/ML (20.0-100.0)
== END 2022-10-18 13:30 | DRG 552 ==
LOC: M ED 19:11 → M ED INP 10-16 02:01 → ENRESERV 10-16 03:50 → M MS5PR 10-16 04:34
PROVIDERS: ADMIT Family Medicine; ATTEND Family Medicine
DX: M54.50 Low back pain, unspecified (principal); R19.7 Diarrhea, unspecified; E11.9 Type 2 diabetes mellitus without complications; I10 Essential (primary) hypertension; E78.5 Hyperlipidemia, unspecified; G25.0 Essential tremor; M25.552 Pain in left hip; R53.1 Weakness; R50.9 Fever, unspecified; K57.30 Diverticulosis of large intestine without perforation or abscess without bleeding; J44.9 Chronic obstructive pulmonary disease, unspecified; M47.814 Spondylosis without myelopathy or radiculopathy, thoracic region; N40.1 Benign prostatic hyperplasia with lower urinary tract symptoms; G89.29 Other chronic pain; M47.817 Spondylosis without myelopathy or radiculopathy, lumbosacral region; R33.9 Retention of urine, unspecified; M85.88 Other specified disorders of bone density and structure, other site; E87.6 Hypokalemia; E83.42 Hypomagnesemia; Z79.82 Long term (current) use of aspirin; Z79.4 Long term (current) use of insulin; Z79.899 Other long term (current) drug therapy

== ENCOUNTER 2022-10-18 11:06 | Inpatient (IN) | payer MEDICARE, OTHER ==
[~2022-10-18] VITALS: Ht 188 cm; Wt 70.8 kg
[~2022-10-18 11:06] MED LIST changes: +ACET-683 PO; +ADVA115A PO; +ASPI81TA26 PO; +FINA5TAB2 PO; +FLON1SPR NARES; +KETO2CR TOP; +PRES10CA2 PO; +PRIM250T8 PO; +TAMS1CAP17 PO; +TRAM50TA2 PO; +VITA200048 PO; +ZINC50TA26 PO
[2022-10-18 13:45] VITALS: BP 148/78
[2022-10-18] MEDS ORDERED: GLUCAGON INJ 1MG VIAL SC PRN (15:45)
[2022-10-18] MEDS ORDERED: DEXTROSE 50% 50ML SYRINGE IV PRN (15:45)
[2022-10-18] MEDS ORDERED: GLUCOSE 4GM CHEW TABLET PO PRN (15:45)
[2022-10-18] MEDS ORDERED: oxyCODONE 5MG TAB PO PRN (15:45)
[2022-10-18] MEDS ORDERED: BISACODYL 10MG SUPP PR PRN (15:45)
[2022-10-18] MEDS: ACETAMINOPHEN 500 MG TAB PO SCH ×2 (16:20→21:34)
[2022-10-18] MEDS: REMEDY PHYTOPLEX Z-GUARD PASTE 113GM TUBE (FROM STOREROOM PRODUCT) TOP SCH ×2 (16:21→21:34)
[2022-10-18] MEDS: tiZANidine 4 MG TAB PO SCH ×2 (16:21→21:32)
[2022-10-18] MEDS: INSULIN LISPRO (NovoLOG) PER UNIT SC SCH ×2 (17:11→21:00)
[2022-10-18 20:00] VITALS: BP 150/68
[2022-10-18] MEDS: ADVAIR HFA 115/21MCG INHALER INH SCH (20:02)
[2022-10-18] MEDS: SENNA 8.6 MG TAB (SENOKOT) PO SCH (21:32)
[2022-10-18] MEDS: MONTELUKAST 10 MG TAB PO SCH (21:32)
[2022-10-18] MEDS: PRIMIDONE 250 MG TAB PO SCH (21:32)
[2022-10-18] MEDS: GABAPENTIN 100 MG CAP PO SCH (21:33)
[2022-10-18] MEDS: DOCUSATE SODIUM 100MG CAPSULE PO SCH (21:33)
[2022-10-18] MEDS: TAMSULOSIN 0.4 MG CAP PO SCH (21:33)
[2022-10-18] MEDS: FINASTERIDE 5MG TAB PO SCH (21:33)
[2022-10-18] MEDS: KETOCONAZOLE 2% CREAM TOP SCH (21:34)
[2022-10-18] MEDS: FLUTICASONE PROP 0.05% NASAL SPRAY 16 GM (FLONASE) NARES SCH (21:34)
[2022-10-19 06:00] VITALS: BP 172/78
[2022-10-19] MEDS: hydroCHLOROthiazide 12.5 MG CAPSULE PO SCH (06:18)
[2022-10-19] MEDS: OLMESARTAN MEDOXOMIL 20 MG TAB (BENICAR) PO SCH (06:19)
[2022-10-19] MEDS: tiZANidine 4 MG TAB PO SCH ×3 (06:19→21:07)
[2022-10-19 06:52] LABS: BASO % 0.6 % (0.0-1.0); EOS # 0.1 10^3/uL (0.0-0.5); EOS % 1.2 % (0.0-3.0); HEMATOCRIT 44.6 % (42.0-52.0); HEMOGLOBIN 14.9 g/dl (13.5-17.5); LYMPH # 2.1 10^3/uL (1.5-5.0); LYMPH % 31.8 % (24.0-44.0); MEAN CORPUSCULAR HEMOGLOBIN 30.3 pg (27.0-33.0); MEAN CORPUSCULAR HGB CONC 33.4 g/dl (32.0-36.5); MEAN CORPUSCULAR VOLUME 90.7 fl (80.0-96.0); MONO # 0.6 10^3/uL (0.0-0.8); MONO % 8.8 % (2.0-8.0); NEUTROPHILS # 3.8 10^3/uL (1.5-8.5); NEUTROPHILS % 57.5 % (36.0-66.0); PLATELET COUNT, AUTOMATED 227 10^3/uL (150-450); RED BLOOD COUNT 4.92 10^6/uL (4.30-6.10); WHITE BLOOD COUNT 6.7 10^3/uL (4.0-10.0)
[2022-10-19] MEDS: ADVAIR HFA 115/21MCG INHALER INH SCH ×2 (07:20→20:39)
[2022-10-19 07:41] LABS: ALKALINE PHOSPHATASE 95 U/L (46-116); ALT/SGPT 21 U/L (7.0-40); AST/SGOT 18 U/L (<34); BILIRUBIN,TOTAL 0.4 MG/DL (0.3-1.2); BLOOD UREA NITROGEN 8 MG/DL (9-23); CALCIUM LEVEL 8.6 MG/DL (8.3-10.6); CARBON DIOXIDE LEVEL 30 MMOL/L (20-31); CHLORIDE LEVEL 106 MMOL/L (98-107); CREATININE FOR GFR 0.45 MG/DL (0.70-1.30); GLOMERULAR FILTRATION RATE > 60.0 (>42); GLUCOSE, FASTING 189 MG/DL (74-106); POTASSIUM SERUM 3.6 MMOL/L (3.5-5.1); SODIUM LEVEL 141 MMOL/L (136-145); TOTAL PROTEIN 5.9 G/DL (5.7-8.2)
[2022-10-19 07:44] VITALS: BP 138/68
[2022-10-19] MEDS: LEVEMIR (INSULIN DETEMIR) 1 UNITS/0.01ML SC SCH (08:40)
[2022-10-19] MEDS: INSULIN LISPRO (NovoLOG) PER UNIT SC SCH ×4 (08:40→21:00)
[2022-10-19] MEDS ORDERED: PANTOPRAZOLE 40MG TAB (PROTONIX) PO SCH (09:00)
[2022-10-19] MEDS: KETOCONAZOLE 2% CREAM TOP SCH ×2 (09:19→21:05)
[2022-10-19] MEDS: REMEDY PHYTOPLEX Z-GUARD PASTE 113GM TUBE (FROM STOREROOM PRODUCT) TOP SCH ×3 (09:19→21:05)
[2022-10-19] MEDS: PRIMIDONE 250 MG TAB PO SCH ×2 (09:20→21:03)
[2022-10-19] MEDS: ENOXAPARIN 40MG/0.4ML SYRINGE (J1650 PER 10MG) SC SCH (09:20)
[2022-10-19] MEDS: ASPIRIN 81MG ENTERIC TABLET PO SCH (09:20)
[2022-10-19] MEDS: DOCUSATE SODIUM 100MG CAPSULE PO SCH ×2 (09:21→21:03)
[2022-10-19] MEDS: ATORVASTATIN 10 MG TAB PO SCH (09:21)
[2022-10-19] MEDS: ACETAMINOPHEN 500 MG TAB PO SCH ×3 (09:21→21:04)
[2022-10-19] MEDS: GABAPENTIN 100 MG CAP PO SCH ×2 (09:22→21:03)
[2022-10-19] MEDS: MAGNESIUM OXIDE 400MG TAB (MAG-OX) PO SCH (09:22)
[2022-10-19] MEDS: FLUTICASONE PROP 0.05% NASAL SPRAY 16 GM (FLONASE) NARES SCH ×2 (09:23→21:04)
[2022-10-19] MEDS: metFORMIN (GLUCOPHAGE) 500MG TAB PO SCH (12:43)
[2022-10-19 14:00] VITALS: BP 154/69
[2022-10-19 20:00] VITALS: BP 150/60
[2022-10-19] MEDS: SODIUM CHLORIDE HYPERTONIC 3% 15ML NEB SOL INH SCH (20:00)
[2022-10-19] MEDS: PANTOPRAZOLE 40MG TAB (PROTONIX) PO SCH (21:03)
[2022-10-19] MEDS: FINASTERIDE 5MG TAB PO SCH (21:03)
[2022-10-19] MEDS: LORATADINE 10 MG TAB PO SCH (21:03)
[2022-10-19] MEDS: TAMSULOSIN 0.4 MG CAP PO SCH (21:03)
[2022-10-19] MEDS: SENNA 8.6 MG TAB (SENOKOT) PO SCH (21:03)
[2022-10-19] MEDS: SODIUM CHLORIDE NASAL 0.65% SPRAY BTL (OCEAN) SCH (21:04)
[2022-10-19] MEDS: MONTELUKAST 10 MG TAB PO SCH (21:08)
[2022-10-20] MEDS: SODIUM CHLORIDE HYPERTONIC 3% 15ML NEB SOL INH SCH ×4 (02:00→20:00)
[2022-10-20] MEDS: tiZANidine 4 MG TAB PO SCH ×3 (05:39→21:26)
[2022-10-20 06:00] VITALS: BP 150/60
[2022-10-20] MEDS: REMEDY PHYTOPLEX Z-GUARD PASTE 113GM TUBE (FROM STOREROOM PRODUCT) TOP SCH ×3 (09:00→21:00)
[2022-10-20] MEDS: PANTOPRAZOLE 40MG TAB (PROTONIX) PO SCH ×2 (09:15→21:27)
[2022-10-20] MEDS: LEVEMIR (INSULIN DETEMIR) 1 UNITS/0.01ML SC SCH (09:15)
[2022-10-20] MEDS: MAGNESIUM OXIDE 400MG TAB (MAG-OX) PO SCH (09:15)
[2022-10-20] MEDS: GABAPENTIN 100 MG CAP PO SCH ×2 (09:15→21:26)
[2022-10-20] MEDS: DOCUSATE SODIUM 100MG CAPSULE PO SCH ×2 (09:15→21:26)
[2022-10-20] MEDS: INSULIN LISPRO (NovoLOG) PER UNIT SC SCH ×4 (09:15→21:00)
[2022-10-20] MEDS: ACETAMINOPHEN 500 MG TAB PO SCH ×3 (09:16→21:27)
[2022-10-20] MEDS: ASPIRIN 81MG ENTERIC TABLET PO SCH (09:18)
[2022-10-20] MEDS: ATORVASTATIN 10 MG TAB PO SCH (09:18)
[2022-10-20] MEDS: OLMESARTAN MEDOXOMIL 20 MG TAB (BENICAR) PO SCH (09:18)
[2022-10-20] MEDS: PRIMIDONE 250 MG TAB PO SCH ×2 (09:18→21:26)
[2022-10-20] MEDS: hydroCHLOROthiazide 12.5 MG CAPSULE PO SCH (09:18)
[2022-10-20] MEDS: ENOXAPARIN 40MG/0.4ML SYRINGE (J1650 PER 10MG) SC SCH (09:19)
[2022-10-20] MEDS: SODIUM CHLORIDE NASAL 0.65% SPRAY BTL (OCEAN) SCH ×3 (09:19→21:27)
[2022-10-20] MEDS: FLUTICASONE PROP 0.05% NASAL SPRAY 16 GM (FLONASE) NARES SCH ×2 (09:19→21:27)
[2022-10-20] MEDS: KETOCONAZOLE 2% CREAM TOP SCH ×2 (09:20→21:28)
[2022-10-20] MEDS: metFORMIN (GLUCOPHAGE) 500MG TAB PO SCH ×2 (09:22→17:04)
[2022-10-20 10:04] LABS: BASO % 0.4 % (0.0-1.0); EOS # 0.1 10^3/uL (0.0-0.5); EOS % 0.9 % (0.0-3.0); HEMATOCRIT 41.1 % (42.0-52.0); HEMOGLOBIN 13.9 g/dl (13.5-17.5); LYMPH # 1.4 10^3/uL (1.5-5.0); MEAN CORPUSCULAR HEMOGLOBIN 30.4 pg (27.0-33.0); MEAN CORPUSCULAR HGB CONC 33.8 g/dl (32.0-36.5); MEAN CORPUSCULAR VOLUME 89.9 fl (80.0-96.0); MONO # 0.7 10^3/uL (0.0-0.8); MONO % 8.9 % (2.0-8.0); NEUTROPHILS # 5.8 10^3/uL (1.5-8.5); NEUTROPHILS % 71.7 % (36.0-66.0); PLATELET COUNT, AUTOMATED 217 10^3/uL (150-450); RED BLOOD COUNT 4.57 10^6/uL (4.30-6.10)
[2022-10-20 10:38] LABS: BLOOD UREA NITROGEN 14 MG/DL (9-23); CALCIUM LEVEL 8.5 MG/DL (8.3-10.6); CARBON DIOXIDE LEVEL 29 MMOL/L (20-31); CHLORIDE LEVEL 103 MMOL/L (98-107); CREATININE FOR GFR 0.45 MG/DL (0.70-1.30); GLOMERULAR FILTRATION RATE > 60.0 (>42); GLUCOSE, FASTING 252 MG/DL (74-106); POTASSIUM SERUM 3.5 MMOL/L (3.5-5.1); SODIUM LEVEL 138 MMOL/L (136-145)
[2022-10-20] MEDS: amLODIPine 5 MG TAB PO SCH (11:05)
[2022-10-20] MEDS: ADVAIR HFA 115/21MCG INHALER INH SCH ×2 (11:21→20:27)
[2022-10-20 14:00] VITALS: BP 134/67
[2022-10-20 20:32] VITALS: BP 148/71
[2022-10-20] MEDS: FINASTERIDE 5MG TAB PO SCH (21:26)
[2022-10-20] MEDS: MONTELUKAST 10 MG TAB PO SCH (21:26)
[2022-10-20] MEDS: SENNA 8.6 MG TAB (SENOKOT) PO SCH (21:26)
[2022-10-20] MEDS: LORATADINE 10 MG TAB PO SCH (21:26)
[2022-10-20] MEDS: TAMSULOSIN 0.4 MG CAP PO SCH (21:27)
[2022-10-21] MEDS: tiZANidine 4 MG TAB PO SCH ×3 (06:06→21:10)
[2022-10-21 06:07] VITALS: BP 161/84
[2022-10-21] MEDS: SODIUM CHLORIDE HYPERTONIC 3% 15ML NEB SOL INH SCH ×3 (07:45→20:00)
[2022-10-21] MEDS: ADVAIR HFA 115/21MCG INHALER INH SCH ×2 (07:46→20:54)
[2022-10-21] MEDS: REMEDY PHYTOPLEX Z-GUARD PASTE 113GM TUBE (FROM STOREROOM PRODUCT) TOP SCH ×3 (09:00→21:00)
[2022-10-21] MEDS: LEVEMIR (INSULIN DETEMIR) 1 UNITS/0.01ML SC SCH (09:54)
[2022-10-21] MEDS: ACETAMINOPHEN 500 MG TAB PO SCH ×3 (09:55→21:02)
[2022-10-21] MEDS: amLODIPine 5 MG TAB PO SCH (09:55)
[2022-10-21] MEDS: DOCUSATE SODIUM 100MG CAPSULE PO SCH ×2 (09:55→21:02)
[2022-10-21] MEDS: PANTOPRAZOLE 40MG TAB (PROTONIX) PO SCH ×2 (09:55→21:02)
[2022-10-21] MEDS: GABAPENTIN 100 MG CAP PO SCH ×2 (09:55→21:02)
[2022-10-21] MEDS: INSULIN LISPRO (NovoLOG) PER UNIT SC SCH ×4 (09:55→21:00)
[2022-10-21] MEDS: PRIMIDONE 250 MG TAB PO SCH ×2 (09:56→21:02)
[2022-10-21] MEDS: MAGNESIUM OXIDE 400MG TAB (MAG-OX) PO SCH (09:56)
[2022-10-21] MEDS: hydroCHLOROthiazide 12.5 MG CAPSULE PO SCH (09:56)
[2022-10-21] MEDS: ATORVASTATIN 10 MG TAB PO SCH (09:56)
[2022-10-21] MEDS: ENOXAPARIN 40MG/0.4ML SYRINGE (J1650 PER 10MG) SC SCH (09:56)
[2022-10-21] MEDS: OLMESARTAN MEDOXOMIL 20 MG TAB (BENICAR) PO SCH (09:56)
[2022-10-21] MEDS: metFORMIN (GLUCOPHAGE) 500MG TAB PO SCH ×2 (09:56→17:13)
[2022-10-21] MEDS: SODIUM CHLORIDE NASAL 0.65% SPRAY BTL (OCEAN) SCH ×4 (09:58→21:00)
[2022-10-21] MEDS: ASPIRIN 81MG ENTERIC TABLET PO SCH (09:58)
[2022-10-21] MEDS: FLUTICASONE PROP 0.05% NASAL SPRAY 16 GM (FLONASE) NARES SCH ×2 (09:58→21:07)
[2022-10-21] MEDS: KETOCONAZOLE 2% CREAM TOP SCH ×2 (09:58→21:00)
[2022-10-21 14:21] VITALS: BP 136/65
[2022-10-21] MEDS: LIDOCAINE 5% (LIDODERM) PATCH TD SCH (14:57)
[2022-10-21 19:31] VITALS: BP 142/80
[2022-10-21] MEDS: FINASTERIDE 5MG TAB PO SCH (21:02)
[2022-10-21] MEDS: LORATADINE 10 MG TAB PO SCH (21:02)
[2022-10-21] MEDS: SENNA 8.6 MG TAB (SENOKOT) PO SCH (21:02)
[2022-10-21] MEDS: MONTELUKAST 10 MG TAB PO SCH (21:02)
[2022-10-21] MEDS: TAMSULOSIN 0.4 MG CAP PO SCH (21:04)
[2022-10-22 05:44] VITALS: BP 158/84
[2022-10-22] MEDS: tiZANidine 4 MG TAB PO SCH ×3 (06:03→20:45)
[2022-10-22] MEDS: ADVAIR HFA 115/21MCG INHALER INH SCH ×2 (07:38→20:57)
[2022-10-22] MEDS: SODIUM CHLORIDE HYPERTONIC 3% 15ML NEB SOL INH SCH ×3 (07:39→20:00)
[2022-10-22] MEDS: SODIUM CHLORIDE NASAL 0.65% SPRAY BTL (OCEAN) SCH ×3 (09:00→20:48)
[2022-10-22] MEDS: REMEDY PHYTOPLEX Z-GUARD PASTE 113GM TUBE (FROM STOREROOM PRODUCT) TOP SCH ×3 (09:00→20:50)
[2022-10-22] MEDS: LEVEMIR (INSULIN DETEMIR) 1 UNITS/0.01ML SC SCH (09:33)
[2022-10-22] MEDS: LIDOCAINE 5% (LIDODERM) PATCH TD SCH (09:33)
[2022-10-22] MEDS: ENOXAPARIN 40MG/0.4ML SYRINGE (J1650 PER 10MG) SC SCH (09:34)
[2022-10-22] MEDS: FLUTICASONE PROP 0.05% NASAL SPRAY 16 GM (FLONASE) NARES SCH ×2 (09:34→20:47)
[2022-10-22] MEDS: INSULIN LISPRO (NovoLOG) PER UNIT SC SCH ×4 (09:34→20:50)
[2022-10-22] MEDS: ACETAMINOPHEN 500 MG TAB PO SCH ×3 (09:35→20:46)
[2022-10-22] MEDS: hydroCHLOROthiazide 12.5 MG CAPSULE PO SCH (09:35)
[2022-10-22] MEDS: ATORVASTATIN 10 MG TAB PO SCH (09:35)
[2022-10-22] MEDS: ASPIRIN 81MG ENTERIC TABLET PO SCH (09:35)
[2022-10-22] MEDS: metFORMIN (GLUCOPHAGE) 500MG TAB PO SCH ×2 (09:35→16:58)
[2022-10-22] MEDS: MAGNESIUM OXIDE 400MG TAB (MAG-OX) PO SCH (09:35)
[2022-10-22] MEDS: GABAPENTIN 100 MG CAP PO SCH ×2 (09:36→20:46)
[2022-10-22] MEDS: DOCUSATE SODIUM 100MG CAPSULE PO SCH ×2 (09:36→20:45)
[2022-10-22] MEDS: PRIMIDONE 250 MG TAB PO SCH ×2 (09:36→20:46)
[2022-10-22] MEDS: PANTOPRAZOLE 40MG TAB (PROTONIX) PO SCH ×2 (09:36→20:46)
[2022-10-22] MEDS: amLODIPine 5 MG TAB PO SCH (09:43)
[2022-10-22] MEDS: KETOCONAZOLE 2% CREAM TOP SCH ×2 (09:44→20:47)
[2022-10-22] MEDS: OLMESARTAN MEDOXOMIL 20 MG TAB (BENICAR) PO SCH (09:44)
[2022-10-22 14:00] VITALS: BP 122/68
[2022-10-22 20:00] VITALS: BP 130/70
[2022-10-22] MEDS: FINASTERIDE 5MG TAB PO SCH (20:45)
[2022-10-22] MEDS: traZODone 25MG PER 1/2 TABLET PO PRN (20:45)
[2022-10-22] MEDS: MONTELUKAST 10 MG TAB PO SCH (20:45)
[2022-10-22] MEDS: SENNA 8.6 MG TAB (SENOKOT) PO SCH (20:45)
[2022-10-22] MEDS: TAMSULOSIN 0.4 MG CAP PO SCH (20:46)
[2022-10-22] MEDS: LORATADINE 10 MG TAB PO SCH (20:46)
[2022-10-23] MEDS: SODIUM CHLORIDE HYPERTONIC 3% 15ML NEB SOL INH SCH ×4 (02:00→19:28)
[2022-10-23] MEDS: tiZANidine 4 MG TAB PO SCH ×3 (05:34→21:51)
[2022-10-23 06:00] VITALS: BP 138/72
[2022-10-23 06:53] LABS: BASO # 0.1 10^3/uL (0.0-0.2); BASO % 0.6 % (0.0-1.0); EOS # 0.1 10^3/uL (0.0-0.5); EOS % 1.5 % (0.0-3.0); HEMOGLOBIN 14.7 g/dl (13.5-17.5); LYMPH % 24.8 % (24.0-44.0); MEAN CORPUSCULAR HEMOGLOBIN 30.4 pg (27.0-33.0); MEAN CORPUSCULAR HGB CONC 33.4 g/dl (32.0-36.5); MEAN CORPUSCULAR VOLUME 90.9 fl (80.0-96.0); MONO # 0.9 10^3/uL (0.0-0.8); MONO % 10.4 % (2.0-8.0); NEUTROPHILS # 5.1 10^3/uL (1.5-8.5); NEUTROPHILS % 62.6 % (36.0-66.0); PLATELET COUNT, AUTOMATED 240 10^3/uL (150-450); RED BLOOD COUNT 4.84 10^6/uL (4.30-6.10); WHITE BLOOD COUNT 8.2 10^3/uL (4.0-10.0)
[2022-10-23 07:23] LABS: BLOOD UREA NITROGEN 11 MG/DL (9-23); CALCIUM LEVEL 8.1 MG/DL (8.3-10.6); CARBON DIOXIDE LEVEL 30 MMOL/L (20-31); CHLORIDE LEVEL 103 MMOL/L (98-107); CREATININE FOR GFR 0.43 MG/DL (0.70-1.30); GLOMERULAR FILTRATION RATE > 60.0 (>42); GLUCOSE, FASTING 179 MG/DL (74-106); POTASSIUM SERUM 3.8 MMOL/L (3.5-5.1); SODIUM LEVEL 140 MMOL/L (136-145)
[2022-10-23] MEDS: ADVAIR HFA 115/21MCG INHALER INH SCH ×2 (08:00→19:26)
[2022-10-23] MEDS: REMEDY PHYTOPLEX Z-GUARD PASTE 113GM TUBE (FROM STOREROOM PRODUCT) TOP SCH ×3 (09:00→21:00)
[2022-10-23] MEDS: amLODIPine 5 MG TAB PO SCH (09:07)
[2022-10-23] MEDS: OLMESARTAN MEDOXOMIL 20 MG TAB (BENICAR) PO SCH (09:07)
[2022-10-23] MEDS: metFORMIN (GLUCOPHAGE) 500MG TAB PO SCH ×2 (09:07→16:59)
[2022-10-23] MEDS: ASPIRIN 81MG ENTERIC TABLET PO SCH (09:07)
[2022-10-23] MEDS: hydroCHLOROthiazide 12.5 MG CAPSULE PO SCH (09:07)
[2022-10-23] MEDS: DOCUSATE SODIUM 100MG CAPSULE PO SCH ×2 (09:07→21:00)
[2022-10-23] MEDS: PRIMIDONE 250 MG TAB PO SCH ×2 (09:08→21:01)
[2022-10-23] MEDS: ACETAMINOPHEN 500 MG TAB PO SCH ×3 (09:08→21:01)
[2022-10-23] MEDS: ATORVASTATIN 10 MG TAB PO SCH (09:08)
[2022-10-23] MEDS: PANTOPRAZOLE 40MG TAB (PROTONIX) PO SCH ×2 (09:08→21:00)
[2022-10-23] MEDS: GABAPENTIN 100 MG CAP PO SCH ×2 (09:08→21:00)
[2022-10-23] MEDS: MAGNESIUM OXIDE 400MG TAB (MAG-OX) PO SCH (09:08)
[2022-10-23] MEDS: ENOXAPARIN 40MG/0.4ML SYRINGE (J1650 PER 10MG) SC SCH (09:08)
[2022-10-23] MEDS: FLUTICASONE PROP 0.05% NASAL SPRAY 16 GM (FLONASE) NARES SCH ×2 (09:09→21:00)
[2022-10-23] MEDS: LIDOCAINE 5% (LIDODERM) PATCH TD SCH (09:09)
[2022-10-23] MEDS: INSULIN LISPRO (NovoLOG) PER UNIT SC SCH ×4 (09:09→21:00)
[2022-10-23] MEDS: LEVEMIR (INSULIN DETEMIR) 1 UNITS/0.01ML SC SCH (09:09)
[2022-10-23] MEDS: SODIUM CHLORIDE NASAL 0.65% SPRAY BTL (OCEAN) SCH ×3 (09:10→21:00)
[2022-10-23] MEDS: KETOCONAZOLE 2% CREAM TOP SCH ×2 (09:13→21:02)
[2022-10-23 14:00] VITALS: BP 145/68
[2022-10-23 20:00] VITALS: BP 155/75
[2022-10-23] MEDS: SENNA 8.6 MG TAB (SENOKOT) PO SCH (21:00)
[2022-10-23] MEDS: LORATADINE 10 MG TAB PO SCH (21:00)
[2022-10-23] MEDS: MONTELUKAST 10 MG TAB PO SCH (21:00)
[2022-10-23] MEDS: TAMSULOSIN 0.4 MG CAP PO SCH (21:00)
[2022-10-23] MEDS: traZODone 25MG PER 1/2 TABLET PO PRN (21:01)
[2022-10-23] MEDS: FINASTERIDE 5MG TAB PO SCH (21:01)
[2022-10-24] MEDS: SODIUM CHLORIDE HYPERTONIC 3% 15ML NEB SOL INH SCH ×4 (02:00→19:57)
[2022-10-24] MEDS: tiZANidine 4 MG TAB PO SCH ×3 (05:34→20:33)
[2022-10-24 06:00] VITALS: BP 140/78
[2022-10-24] MEDS: ADVAIR HFA 115/21MCG INHALER INH SCH ×2 (07:20→19:55)
[2022-10-24] MEDS: INSULIN LISPRO (NovoLOG) PER UNIT SC SCH ×4 (08:52→21:00)
[2022-10-24] MEDS: LEVEMIR (INSULIN DETEMIR) 1 UNITS/0.01ML SC SCH (08:53)
[2022-10-24] MEDS: hydroCHLOROthiazide 12.5 MG CAPSULE PO SCH (08:54)
[2022-10-24] MEDS: ACETAMINOPHEN 500 MG TAB PO SCH ×3 (08:54→20:33)
[2022-10-24] MEDS: OLMESARTAN MEDOXOMIL 20 MG TAB (BENICAR) PO SCH (08:55)
[2022-10-24] MEDS: GABAPENTIN 100 MG CAP PO SCH ×2 (08:55→20:32)
[2022-10-24] MEDS: metFORMIN (GLUCOPHAGE) 500MG TAB PO SCH ×2 (08:56→17:12)
[2022-10-24] MEDS: DOCUSATE SODIUM 100MG CAPSULE PO SCH ×2 (08:56→20:33)
[2022-10-24] MEDS: amLODIPine 5 MG TAB PO SCH (08:56)
[2022-10-24] MEDS: MAGNESIUM OXIDE 400MG TAB (MAG-OX) PO SCH (08:57)
[2022-10-24] MEDS: ATORVASTATIN 10 MG TAB PO SCH (08:57)
[2022-10-24] MEDS: ASPIRIN 81MG ENTERIC TABLET PO SCH ×2 (08:57→15:40)
[2022-10-24] MEDS: PRIMIDONE 250 MG TAB PO SCH ×2 (08:57→20:33)
[2022-10-24] MEDS: PANTOPRAZOLE 40MG TAB (PROTONIX) PO SCH ×2 (08:57→20:32)
[2022-10-24] MEDS: LIDOCAINE 5% (LIDODERM) PATCH TD SCH (08:58)
[2022-10-24] MEDS: FLUTICASONE PROP 0.05% NASAL SPRAY 16 GM (FLONASE) NARES SCH ×2 (08:58→21:00)
[2022-10-24] MEDS: ENOXAPARIN 40MG/0.4ML SYRINGE (J1650 PER 10MG) SC SCH (08:58)
[2022-10-24] MEDS: SODIUM CHLORIDE NASAL 0.65% SPRAY BTL (OCEAN) SCH ×3 (08:58→21:00)
[2022-10-24] MEDS: REMEDY PHYTOPLEX Z-GUARD PASTE 113GM TUBE (FROM STOREROOM PRODUCT) TOP SCH ×3 (08:59→21:57)
[2022-10-24] MEDS: KETOCONAZOLE 2% CREAM TOP SCH ×2 (09:00→21:56)
[2022-10-24 11:23] LABS: HEMATOCRIT 42.6 % (42.0-52.0); HEMOGLOBIN 14.2 g/dl (13.5-17.5); MEAN CORPUSCULAR HEMOGLOBIN 29.8 pg (27.0-33.0); MEAN CORPUSCULAR HGB CONC 33.3 g/dl (32.0-36.5); MEAN CORPUSCULAR VOLUME 89.5 fl (80.0-96.0); PLATELET COUNT, AUTOMATED 274 10^3/uL (150-450); RED BLOOD COUNT 4.76 10^6/uL (4.30-6.10); WHITE BLOOD COUNT 9.3 10^3/uL (4.0-10.0)
[2022-10-24 14:00] VITALS: BP 131/80
[2022-10-24 20:00] VITALS: BP 153/70
[2022-10-24] MEDS: FINASTERIDE 5MG TAB PO SCH (20:32)
[2022-10-24] MEDS: LORATADINE 10 MG TAB PO SCH (20:32)
[2022-10-24] MEDS: traZODone 25MG PER 1/2 TABLET PO PRN (20:32)
[2022-10-24] MEDS: SENNA 8.6 MG TAB (SENOKOT) PO SCH (20:32)
[2022-10-24] MEDS: MONTELUKAST 10 MG TAB PO SCH (20:32)
[2022-10-24] MEDS: TAMSULOSIN 0.4 MG CAP PO SCH (20:32)
[2022-10-25] MEDS: tiZANidine 4 MG TAB PO SCH (05:45)
[2022-10-25 06:00] VITALS: BP 145/74
[2022-10-25] MEDS: ADVAIR HFA 115/21MCG INHALER INH SCH (07:29)
[2022-10-25] MEDS: SODIUM CHLORIDE HYPERTONIC 3% 15ML NEB SOL INH SCH ×2 (07:30→13:58)
[2022-10-25] MEDS: KETOCONAZOLE 2% CREAM TOP SCH (09:00)
[2022-10-25] MEDS: LEVEMIR (INSULIN DETEMIR) 1 UNITS/0.01ML SC SCH (09:00)
[2022-10-25] MEDS: REMEDY PHYTOPLEX Z-GUARD PASTE 113GM TUBE (FROM STOREROOM PRODUCT) TOP SCH (09:00)
[2022-10-25] MEDS: INSULIN LISPRO (NovoLOG) PER UNIT SC SCH ×2 (09:03→12:00)
[2022-10-25] MEDS: LIDOCAINE 5% (LIDODERM) PATCH TD SCH (09:04)
[2022-10-25] MEDS: OLMESARTAN MEDOXOMIL 20 MG TAB (BENICAR) PO SCH (09:05)
[2022-10-25] MEDS: ACETAMINOPHEN 500 MG TAB PO SCH (09:06)
[2022-10-25] MEDS: GABAPENTIN 100 MG CAP PO SCH (09:06)
[2022-10-25] MEDS: hydroCHLOROthiazide 12.5 MG CAPSULE PO SCH (09:07)
[2022-10-25] MEDS: ATORVASTATIN 10 MG TAB PO SCH (09:07)
[2022-10-25] MEDS: metFORMIN (GLUCOPHAGE) 500MG TAB PO SCH (09:07)
[2022-10-25] MEDS: ASPIRIN 81MG ENTERIC TABLET PO SCH (09:07)
[2022-10-25] MEDS: MAGNESIUM OXIDE 400MG TAB (MAG-OX) PO SCH (09:07)
[2022-10-25 09:08] VITALS: BP 156/86
[2022-10-25] MEDS: amLODIPine 5 MG TAB PO SCH (09:08)
[2022-10-25] MEDS: DOCUSATE SODIUM 100MG CAPSULE PO SCH (09:08)
[2022-10-25] MEDS: SODIUM CHLORIDE NASAL 0.65% SPRAY BTL (OCEAN) SCH (09:09)
[2022-10-25] MEDS: PRIMIDONE 250 MG TAB PO SCH (09:09)
[2022-10-25] MEDS: PANTOPRAZOLE 40MG TAB (PROTONIX) PO SCH (09:09)
[2022-10-25] MEDS: FLUTICASONE PROP 0.05% NASAL SPRAY 16 GM (FLONASE) NARES SCH (09:10)
[2022-10-25] MEDS ORDERED: JANU50TA8 PO (11:09)
[2022-10-25] MEDS ORDERED: ATOR1TAB19 PO (11:09)
[2022-10-25] MEDS ORDERED: MONT10TA97 PO (11:09)
[2022-10-25] MEDS ORDERED: PRIM250T8 PO (11:09)
[2022-10-25] MEDS ORDERED: AMLO1TAB24 PO (11:09)
[2022-10-25] MEDS ORDERED: OLME1TAB51 PO (11:09)
[2022-10-25] MEDS ORDERED: ASPI81TA26 PO (11:09)
[2022-10-25] MEDS ORDERED: TIZA10TA PO (11:09)
[2022-10-25] MEDS ORDERED: ADVA115A PO (11:09)
[2022-10-25] MEDS ORDERED: PANT40TA29 PO (11:09)
[2022-10-25] MEDS ORDERED: FLOM0.4C39 PO (11:09)
[2022-10-25] MEDS ORDERED: FINA5TAB2 PO (11:09)
[2022-10-25] MEDS ORDERED: TRAZ-252 PO (11:09)
== END 2022-10-25 13:50 | disposition home or self-care (01) | DRG 552 ==
LOC: M PM&R 13:35
PROVIDERS: ADMIT Physical Medicine & Rehabilitation; ATTEND Physical Medicine & Rehabilitation
DX: M47.26 Other spondylosis with radiculopathy, lumbar region (principal); M47.24 Other spondylosis with radiculopathy, thoracic region; R53.1 Weakness; R33.9 Retention of urine, unspecified; I10 Essential (primary) hypertension; E11.9 Type 2 diabetes mellitus without complications; E78.5 Hyperlipidemia, unspecified; G25.0 Essential tremor; N32.9 Bladder disorder, unspecified; N40.1 Benign prostatic hyperplasia with lower urinary tract symptoms; Z74.09 Other reduced mobility; Z74.1 Need for assistance with personal care; Z79.82 Long term (current) use of aspirin; Z79.4 Long term (current) use of insulin; Z79.899 Other long term (current) drug therapy

== ENCOUNTER 2022-11-16 18:05 | Inpatient (IN) | payer MEDICARE, OTHER ==
[~2022-11-16] VITALS: Ht 185.4 cm; Wt 74.1 kg
[~2022-11-16 18:05] MED LIST changes: +AMLO1TAB24 PO; +PANT40TA29 PO; +TIZA10TA PO; +TRAZ-252 PO
[2022-11-16] MEDS ORDERED: NS 1,000 ML IV ONE (22:20)
[2022-11-16 23:25] LABS: BASO % 0.2 % (0.0-1.0); HEMATOCRIT 40.3 % (42.0-52.0); HEMOGLOBIN 13.7 g/dl (13.5-17.5); LYMPH # 2.4 10^3/uL (1.5-5.0); LYMPH % 13.9 % (24.0-44.0); MEAN CORPUSCULAR HEMOGLOBIN 30.4 pg (27.0-33.0); MEAN CORPUSCULAR VOLUME 89.6 fl (80.0-96.0); MONO % 9.6 % (2.0-8.0); NEUTROPHILS # 13.2 10^3/uL (1.5-8.5); NEUTROPHILS % 76.1 % (36.0-66.0); PLATELET COUNT, AUTOMATED 200 10^3/uL (150-450); WHITE BLOOD COUNT 17.3 10^3/uL (4.0-10.0)
[2022-11-16 23:37] LABS: CK-MB VALUE MASS < 1.0 NG/ML (<3.6)
[2022-11-16 23:38] LABS: ALBUMIN 3.1 G/DL (3.2-5.2); ALKALINE PHOSPHATASE 120 U/L (46-116); ALT/SGPT < 9 U/L (7.0-40); AST/SGOT 13 U/L (<34); BILIRUBIN,DIRECT 0.2 MG/DL (<0.4); BILIRUBIN,TOTAL 0.5 MG/DL (0.3-1.2); CPK CREATINE PHOSPHOKINASE 23 U/L (46-171); MAGNESIUM LEVEL 1.5 MG/DL (1.8-2.4); MB/CK RELATIVE INDEX 4.34 (< OR =4); TOTAL PROTEIN 6.3 G/DL (5.7-8.2)
[2022-11-16 23:55] LABS: RSV AMPLIFICATION NEGATIVE (NEGATIVE)
[2022-11-16 23:59] LABS: MONO # 1.7 10^3/uL (0.0-0.8)
[2022-11-17] MEDS ORDERED: POTASSIUM CHLORIDE 10MEQ SR TABLET PO ONE (00:20)
[2022-11-17] MEDS ORDERED: MAGNESIUM OXIDE 400MG TAB (MAG-OX) PO ONE (00:20)
[2022-11-17] MEDS ORDERED: cefTRIAXone SOD 1 GM in D5W MINI-BAG PLUS 50 ML IV ONE (00:20)
[2022-11-17] MEDS ORDERED: GLUCOSE 4GM CHEW TABLET PO PRN (01:30)
[2022-11-17] MEDS ORDERED: DEXTROSE 50% 50ML SYRINGE IV PRN (01:30)
[2022-11-17] MEDS ORDERED: GLUCAGON INJ 1MG VIAL SC PRN (01:30)
[2022-11-17 03:10] VITALS: BP 155/73
[2022-11-17] MEDS: NS 1,000 ML IV SCH ×2 (03:27→15:03)
[2022-11-17 06:00] VITALS: BP 151/73
[2022-11-17 06:43] LABS: HEMATOCRIT 39.3 % (42.0-52.0); HEMOGLOBIN 13.1 g/dl (13.5-17.5); MEAN CORPUSCULAR HGB CONC 33.3 g/dl (32.0-36.5); MEAN CORPUSCULAR VOLUME 89.9 fl (80.0-96.0); PLATELET COUNT, AUTOMATED 184 10^3/uL (150-450); RED BLOOD COUNT 4.37 10^6/uL (4.30-6.10); WHITE BLOOD COUNT 14.6 10^3/uL (4.0-10.0)
[2022-11-17 07:02] LABS: BLOOD UREA NITROGEN 8 MG/DL (9-23); CALCIUM LEVEL 8.4 MG/DL (8.3-10.6); CARBON DIOXIDE LEVEL 28 MMOL/L (20-31); CHLORIDE LEVEL 103 MMOL/L (98-107); CREATININE FOR GFR 0.46 MG/DL (0.70-1.30); GLOMERULAR FILTRATION RATE > 60.0 (>42); GLUCOSE, FASTING 153 MG/DL (74-106); MAGNESIUM LEVEL 1.5 MG/DL (1.8-2.4); POTASSIUM SERUM 3.6 MMOL/L (3.5-5.1); SODIUM LEVEL 139 MMOL/L (136-145)
[2022-11-17] MEDS: DOCUSATE SODIUM 100MG CAPSULE PO SCH ×2 (09:00→20:57)
[2022-11-17] MEDS: INSULIN LISPRO (NovoLOG) PER UNIT SC SCH ×4 (09:04→20:58)
[2022-11-17] MEDS ORDERED: MONT10TA97 PO (10:24)
[2022-11-17] MEDS ORDERED: TIZA1TAB12 PO (10:24)
[2022-11-17] MEDS ORDERED: JANU50TA8 PO (10:24)
[2022-11-17] MEDS ORDERED: AMLO1TAB24 PO (10:24)
[2022-11-17] MEDS ORDERED: PANT40TA29 PO (10:24)
[2022-11-17] MEDS ORDERED: ATOR1TAB19 PO (10:24)
[2022-11-17] MEDS ORDERED: FINA5TAB2 PO (10:24)
[2022-11-17] MEDS ORDERED: ADVA115A INH (10:24)
[2022-11-17] MEDS ORDERED: PRIM250T8 PO (10:24)
[2022-11-17] MEDS ORDERED: FLOM0.4C39 PO (10:24)
[2022-11-17] MEDS ORDERED: LIDO1PAD TOP (10:26)
[2022-11-17] MEDS ORDERED: LANTINJ4 SC (10:26)
[2022-11-17] MEDS ORDERED: HOME MED LIST COMPLETE! XX SCH (10:30)
[2022-11-17] MEDS: ENOXAPARIN 40MG/0.4ML SYRINGE (J1650 PER 10MG) SC SCH (10:37)
[2022-11-17] MEDS: CEFDINIR 300 MG CAP (OMNICEF) PO SCH ×2 (10:37→20:58)
[2022-11-17 14:00] VITALS: BP 130/79
[2022-11-17] MEDS ORDERED: FLUTICASONE PROP 0.05% NASAL SPRAY 16 GM (FLONASE) NARES PRN (17:00)
[2022-11-17] MEDS ORDERED: PILL CUTTER 1 EACH XX PRN (17:15)
[2022-11-17] MEDS: MAGNESIUM OXIDE 400MG TAB (MAG-OX) PO SCH ×2 (17:35→20:57)
[2022-11-17] MEDS: ADVAIR HFA 115/21MCG INHALER INH SCH (20:34)
[2022-11-17] MEDS: TAMSULOSIN 0.4 MG CAP PO SCH (20:57)
[2022-11-17] MEDS: PRIMIDONE 250 MG TAB PO SCH (20:57)
[2022-11-17] MEDS: PANTOPRAZOLE 40MG TAB (PROTONIX) PO SCH (20:57)
[2022-11-17] MEDS: FINASTERIDE 5MG TAB PO SCH (20:57)
[2022-11-17] MEDS: MONTELUKAST 10 MG TAB PO SCH (20:57)
[2022-11-17] MEDS: tiZANidine 4 MG TAB PO SCH (20:57)
[2022-11-17] MEDS: LEVEMIR (INSULIN DETEMIR) 1 UNITS/0.01ML SC SCH (20:58)
[2022-11-17] MEDS ORDERED: cefTRIAXone SOD 1 GM in D5W MINI-BAG PLUS 50 ML IV SCH (21:00)
[2022-11-17 22:00] VITALS: BP 149/72
[2022-11-18 06:00] VITALS: BP 148/72
[2022-11-18] MEDS: ADVAIR HFA 115/21MCG INHALER INH SCH ×2 (07:20→20:54)
[2022-11-18] MEDS: ENOXAPARIN 40MG/0.4ML SYRINGE (J1650 PER 10MG) SC SCH (08:01)
[2022-11-18] MEDS: INSULIN LISPRO (NovoLOG) PER UNIT SC SCH ×4 (08:01→21:46)
[2022-11-18] MEDS: CEFDINIR 300 MG CAP (OMNICEF) PO SCH (08:02)
[2022-11-18] MEDS: amLODIPine 5 MG TAB PO SCH (08:02)
[2022-11-18] MEDS: TAMSULOSIN 0.4 MG CAP PO SCH ×2 (08:02→21:45)
[2022-11-18] MEDS: ATORVASTATIN 10 MG TAB PO SCH (08:02)
[2022-11-18] MEDS: PANTOPRAZOLE 40MG TAB (PROTONIX) PO SCH ×2 (08:02→21:44)
[2022-11-18] MEDS: MAGNESIUM OXIDE 400MG TAB (MAG-OX) PO SCH ×3 (08:02→21:44)
[2022-11-18] MEDS: DOCUSATE SODIUM 100MG CAPSULE PO SCH ×2 (08:03→21:45)
[2022-11-18] MEDS: tiZANidine 4 MG TAB PO SCH ×2 (08:03→21:44)
[2022-11-18] MEDS: PRIMIDONE 250 MG TAB PO SCH ×2 (08:03→21:45)
[2022-11-18 08:08] LABS: BASO % 0.4 % (0.0-1.0); EOS % 0.3 % (0.0-3.0); HEMATOCRIT 40.6 % (42.0-52.0); HEMOGLOBIN 13.7 g/dl (13.5-17.5); LYMPH # 1.8 10^3/uL (1.5-5.0); LYMPH % 19.4 % (24.0-44.0); MEAN CORPUSCULAR HEMOGLOBIN 30.2 pg (27.0-33.0); MEAN CORPUSCULAR HGB CONC 33.7 g/dl (32.0-36.5); MEAN CORPUSCULAR VOLUME 89.6 fl (80.0-96.0); MONO # 1.1 10^3/uL (0.0-0.8); MONO % 11.9 % (2.0-8.0); NEUTROPHILS # 6.2 10^3/uL (1.5-8.5); NEUTROPHILS % 67.8 % (36.0-66.0); PLATELET COUNT, AUTOMATED 153 10^3/uL (150-450); RED BLOOD COUNT 4.53 10^6/uL (4.30-6.10); WHITE BLOOD COUNT 9.1 10^3/uL (4.0-10.0)
[2022-11-18 08:34] LABS: BLOOD UREA NITROGEN 6 MG/DL (9-23); CALCIUM LEVEL 8.3 MG/DL (8.3-10.6); CARBON DIOXIDE LEVEL 28 MMOL/L (20-31); CHLORIDE LEVEL 102 MMOL/L (98-107); CREATININE FOR GFR 0.52 MG/DL (0.70-1.30); GLOMERULAR FILTRATION RATE > 60.0 (>42); GLUCOSE, FASTING 197 MG/DL (74-106); POTASSIUM SERUM 3.2 MMOL/L (3.5-5.1); SODIUM LEVEL 136 MMOL/L (136-145)
[2022-11-18] MEDS ORDERED: MAGN400T2 PO (09:51)
[2022-11-18] MEDS ORDERED: CEFD300CAP PO (09:51)
[2022-11-18] MEDS: POTASSIUM CHLORIDE 10MEQ SR TABLET PO SCH ×2 (12:48→15:01)
[2022-11-18 14:00] VITALS: BP 146/74
[2022-11-18 14:01] LABS: BASO % 0.3 % (0.0-1.0); EOS % 0.3 % (0.0-3.0); HEMATOCRIT 44.7 % (42.0-52.0); LYMPH # 0.9 10^3/uL (1.5-5.0); LYMPH % 14.1 % (24.0-44.0); MEAN CORPUSCULAR HEMOGLOBIN 30.2 pg (27.0-33.0); MEAN CORPUSCULAR HGB CONC 33.6 g/dl (32.0-36.5); MEAN CORPUSCULAR VOLUME 90.1 fl (80.0-96.0); MONO # 0.7 10^3/uL (0.0-0.8); NEUTROPHILS # 4.9 10^3/uL (1.5-8.5); NEUTROPHILS % 75.1 % (36.0-66.0); RED BLOOD COUNT 4.96 10^6/uL (4.30-6.10); WHITE BLOOD COUNT 6.5 10^3/uL (4.0-10.0)
[2022-11-18 14:31] LABS: BLOOD UREA NITROGEN 8 MG/DL (9-23); CALCIUM LEVEL 8.4 MG/DL (8.3-10.6); CARBON DIOXIDE LEVEL 27 MMOL/L (20-31); CHLORIDE LEVEL 101 MMOL/L (98-107); CREATININE FOR GFR 0.55 MG/DL (0.70-1.30); GLOMERULAR FILTRATION RATE > 60.0 (>42); GLUCOSE, FASTING 282 MG/DL (74-106); POTASSIUM SERUM 3.7 MMOL/L (3.5-5.1); SODIUM LEVEL 135 MMOL/L (136-145)
[2022-11-18] MEDS: ACETAMINOPHEN TAB 650MG DOSE (2X325MG) PO PRN (15:02)
[2022-11-18 15:04] VITALS: BP 166/80
[2022-11-18] MEDS: cefTRIAXone SOD 1 GM in D5W MINI-BAG PLUS 50 ML IV SCH (17:57)
[2022-11-18] MEDS: LEVEMIR (INSULIN DETEMIR) 1 UNITS/0.01ML SC SCH (21:45)
[2022-11-18] MEDS: FINASTERIDE 5MG TAB PO SCH (21:45)
[2022-11-18] MEDS: MONTELUKAST 10 MG TAB PO SCH (21:46)
[2022-11-18 22:00] VITALS: BP 150/66
[2022-11-19 06:00] VITALS: BP 160/74
[2022-11-19 06:53] LABS: BASO % 0.5 % (0.0-1.0); EOS % 0.2 % (0.0-3.0); HEMATOCRIT 39.1 % (42.0-52.0); HEMOGLOBIN 13.2 g/dl (13.5-17.5); LYMPH % 24.8 % (24.0-44.0); MEAN CORPUSCULAR HEMOGLOBIN 29.9 pg (27.0-33.0); MEAN CORPUSCULAR HGB CONC 33.8 g/dl (32.0-36.5); MEAN CORPUSCULAR VOLUME 88.5 fl (80.0-96.0); MONO # 0.6 10^3/uL (0.0-0.8); MONO % 15.8 % (2.0-8.0); NEUTROPHILS # 2.4 10^3/uL (1.5-8.5); NEUTROPHILS % 58.7 % (36.0-66.0); PLATELET COUNT, AUTOMATED 142 10^3/uL (150-450); RED BLOOD COUNT 4.42 10^6/uL (4.30-6.10)
[2022-11-19] MEDS: ADVAIR HFA 115/21MCG INHALER INH SCH ×2 (07:17→20:06)
[2022-11-19 07:20] LABS: BLOOD UREA NITROGEN 8 MG/DL (9-23); CALCIUM LEVEL 8.2 MG/DL (8.3-10.6); CARBON DIOXIDE LEVEL 28 MMOL/L (20-31); CHLORIDE LEVEL 103 MMOL/L (98-107); CREATININE FOR GFR 0.52 MG/DL (0.70-1.30); GLOMERULAR FILTRATION RATE > 60.0 (>42); GLUCOSE, FASTING 204 MG/DL (74-106); POTASSIUM SERUM 3.8 MMOL/L (3.5-5.1); SODIUM LEVEL 137 MMOL/L (136-145)
[2022-11-19 08:11] LABS: VENOUS BASE EXCESS 3.6 (-2.0-2.0); VENOUS HCO3 27.2 MEQ/L (23.0-27.0); VENOUS O2 SATURATION 93.8 % (60.0-80.0); VENOUS PH 7.473 UNITS (7.330-7.430); VENOUS STANDARD HCO3 27.6 MEQ/L; VENOUS TOTAL CO2 28.4 MEQ/L (24.0-28.0)
[2022-11-19] MEDS: INSULIN LISPRO (NovoLOG) PER UNIT SC SCH ×4 (08:29→20:49)
[2022-11-19] MEDS: MAGNESIUM OXIDE 400MG TAB (MAG-OX) PO SCH ×3 (08:29→20:51)
[2022-11-19] MEDS: DOCUSATE SODIUM 100MG CAPSULE PO SCH ×2 (08:29→20:51)
[2022-11-19] MEDS: TAMSULOSIN 0.4 MG CAP PO SCH ×2 (08:29→20:50)
[2022-11-19] MEDS: ATORVASTATIN 10 MG TAB PO SCH (08:29)
[2022-11-19] MEDS: amLODIPine 5 MG TAB PO SCH (08:30)
[2022-11-19] MEDS: PANTOPRAZOLE 40MG TAB (PROTONIX) PO SCH ×2 (08:30→20:51)
[2022-11-19] MEDS: tiZANidine 4 MG TAB PO SCH ×2 (08:30→20:50)
[2022-11-19] MEDS: PRIMIDONE 250 MG TAB PO SCH ×2 (08:30→20:51)
[2022-11-19] MEDS: ENOXAPARIN 40MG/0.4ML SYRINGE (J1650 PER 10MG) SC SCH (08:31)
[2022-11-19] MEDS: cefTRIAXone SOD 1 GM in D5W MINI-BAG PLUS 50 ML IV SCH (17:18)
[2022-11-19] MEDS: LEVEMIR (INSULIN DETEMIR) 1 UNITS/0.01ML SC SCH (20:49)
[2022-11-19] MEDS: ACETAMINOPHEN TAB 650MG DOSE (2X325MG) PO PRN (20:50)
[2022-11-19] MEDS: MONTELUKAST 10 MG TAB PO SCH (20:51)
[2022-11-19] MEDS: FINASTERIDE 5MG TAB PO SCH (20:51)
[2022-11-20 05:36] VITALS: BP 132/65
[2022-11-20 06:37] LABS: BASO % 0.3 % (0.0-1.0); EOS # 0.1 10^3/uL (0.0-0.5); EOS % 0.8 % (0.0-3.0); HEMATOCRIT 42.7 % (42.0-52.0); HEMOGLOBIN 14.5 g/dl (13.5-17.5); LYMPH # 1.5 10^3/uL (1.5-5.0); LYMPH % 22.5 % (24.0-44.0); MEAN CORPUSCULAR HEMOGLOBIN 30.3 pg (27.0-33.0); MEAN CORPUSCULAR VOLUME 89.3 fl (80.0-96.0); MONO # 1.3 10^3/uL (0.0-0.8); MONO % 20.4 % (2.0-8.0); NEUTROPHILS # 3.7 10^3/uL (1.5-8.5); NEUTROPHILS % 55.7 % (36.0-66.0); PLATELET COUNT, AUTOMATED 143 10^3/uL (150-450); RED BLOOD COUNT 4.78 10^6/uL (4.30-6.10); WHITE BLOOD COUNT 6.6 10^3/uL (4.0-10.0)
[2022-11-20 07:06] LABS: BLOOD UREA NITROGEN 9 MG/DL (9-23); CALCIUM LEVEL 8.1 MG/DL (8.3-10.6); CARBON DIOXIDE LEVEL 32 MMOL/L (20-31); CHLORIDE LEVEL 103 MMOL/L (98-107); CREATININE FOR GFR 0.52 MG/DL (0.70-1.30); GLOMERULAR FILTRATION RATE > 60.0 (>42); GLUCOSE, FASTING 213 MG/DL (74-106); POTASSIUM SERUM 3.6 MMOL/L (3.5-5.1); SODIUM LEVEL 140 MMOL/L (136-145)
[2022-11-20] MEDS: ADVAIR HFA 115/21MCG INHALER INH SCH ×2 (07:11→19:34)
[2022-11-20] MEDS: TAMSULOSIN 0.4 MG CAP PO SCH ×2 (08:11→21:02)
[2022-11-20] MEDS: ATORVASTATIN 10 MG TAB PO SCH (08:11)
[2022-11-20] MEDS: PANTOPRAZOLE 40MG TAB (PROTONIX) PO SCH ×2 (08:11→21:02)
[2022-11-20] MEDS: INSULIN LISPRO (NovoLOG) PER UNIT SC SCH ×4 (08:11→21:04)
[2022-11-20] MEDS: tiZANidine 4 MG TAB PO SCH ×2 (08:12→21:03)
[2022-11-20] MEDS: PRIMIDONE 250 MG TAB PO SCH ×2 (08:12→21:03)
[2022-11-20] MEDS: amLODIPine 5 MG TAB PO SCH (08:12)
[2022-11-20] MEDS: MAGNESIUM OXIDE 400MG TAB (MAG-OX) PO SCH ×2 (08:12→16:58)
[2022-11-20] MEDS: ENOXAPARIN 40MG/0.4ML SYRINGE (J1650 PER 10MG) SC SCH (08:12)
[2022-11-20] MEDS: DOCUSATE SODIUM 100MG CAPSULE PO SCH ×2 (08:26→21:02)
[2022-11-20] MEDS: cefTRIAXone SOD 1 GM in D5W MINI-BAG PLUS 50 ML IV SCH (17:00)
[2022-11-20] MEDS: ACETAMINOPHEN TAB 650MG DOSE (2X325MG) PO PRN (21:02)
[2022-11-20] MEDS: FINASTERIDE 5MG TAB PO SCH (21:03)
[2022-11-20] MEDS: MONTELUKAST 10 MG TAB PO SCH (21:03)
[2022-11-20] MEDS: LEVEMIR (INSULIN DETEMIR) 1 UNITS/0.01ML SC SCH (21:03)
[2022-11-21 06:33] LABS: BASO % 0.4 % (0.0-1.0); EOS # 0.1 10^3/uL (0.0-0.5); EOS % 1.3 % (0.0-3.0); HEMATOCRIT 41.9 % (42.0-52.0); LYMPH # 1.4 10^3/uL (1.5-5.0); LYMPH % 18.2 % (24.0-44.0); MEAN CORPUSCULAR HEMOGLOBIN 29.7 pg (27.0-33.0); MEAN CORPUSCULAR HGB CONC 33.4 g/dl (32.0-36.5); MONO # 1.2 10^3/uL (0.0-0.8); MONO % 14.7 % (2.0-8.0); NEUTROPHILS # 5.2 10^3/uL (1.5-8.5); NEUTROPHILS % 65.1 % (36.0-66.0); PLATELET COUNT, AUTOMATED 150 10^3/uL (150-450); RED BLOOD COUNT 4.71 10^6/uL (4.30-6.10); WHITE BLOOD COUNT 7.9 10^3/uL (4.0-10.0)
[2022-11-21 07:00] LABS: BLOOD UREA NITROGEN 11 MG/DL (9-23); CALCIUM LEVEL 7.7 MG/DL (8.3-10.6); CARBON DIOXIDE LEVEL 30 MMOL/L (20-31); CHLORIDE LEVEL 102 MMOL/L (98-107); CREATININE FOR GFR 0.51 MG/DL (0.70-1.30); GLOMERULAR FILTRATION RATE > 60.0 (>42); GLUCOSE, FASTING 236 MG/DL (74-106); POTASSIUM SERUM 3.9 MMOL/L (3.5-5.1); SODIUM LEVEL 137 MMOL/L (136-145)
[2022-11-21 08:54] VITALS: BP 132/65
[2022-11-21] MEDS: PANTOPRAZOLE 40MG TAB (PROTONIX) PO SCH (08:54)
[2022-11-21] MEDS: tiZANidine 4 MG TAB PO SCH (08:54)
[2022-11-21] MEDS: TAMSULOSIN 0.4 MG CAP PO SCH (08:54)
[2022-11-21] MEDS: ATORVASTATIN 10 MG TAB PO SCH (08:54)
[2022-11-21] MEDS: PRIMIDONE 250 MG TAB PO SCH (08:54)
[2022-11-21] MEDS: amLODIPine 5 MG TAB PO SCH (08:54)
[2022-11-21] MEDS: INSULIN LISPRO (NovoLOG) PER UNIT SC SCH ×2 (08:55→11:52)
[2022-11-21] MEDS: ENOXAPARIN 40MG/0.4ML SYRINGE (J1650 PER 10MG) SC SCH (08:58)
[2022-11-21] MEDS ORDERED: CEFDINIR 300 MG CAP (OMNICEF) PO SCH (09:00)
[2022-11-21] MEDS: DOCUSATE SODIUM 100MG CAPSULE PO SCH (09:00)
[2022-11-21] MEDS: ADVAIR HFA 115/21MCG INHALER INH SCH (09:09)
== END 2022-11-21 14:30 | disposition home health service (06) | DRG 699 ==
LOC: M ED 18:05 → M ED INP 11-17 01:28 → ENRESERV 11-17 02:21 → M MS5PR 11-17 03:05
PROVIDERS: ADMIT Internal Medicine; ATTEND Internal Medicine Nephrology
DX: T83.511A Infection and inflammatory reaction due to indwelling urethral catheter, initial encounter (principal); S06.0XAA Concussion with loss of consciousness status unknown, initial encounter; I10 Essential (primary) hypertension; E78.5 Hyperlipidemia, unspecified; E11.9 Type 2 diabetes mellitus without complications; K21.9 Gastro-esophageal reflux disease without esophagitis; N40.1 Benign prostatic hyperplasia with lower urinary tract symptoms; N39.0 Urinary tract infection, site not specified; J44.9 Chronic obstructive pulmonary disease, unspecified; S00.93XA Contusion of unspecified part of head, initial encounter; M54.16 Radiculopathy, lumbar region; G25.0 Essential tremor; E83.42 Hypomagnesemia; B96.20 Unspecified Escherichia coli [E. coli] as the cause of diseases classified elsewhere; R53.1 Weakness; Z79.82 Long term (current) use of aspirin; Z79.899 Other long term (current) drug therapy; Z20.822 Contact with and (suspected) exposure to COVID-19; S20.224A Contusion of middle back wall of thorax, initial encounter; W10.8XXA Fall (on) (from) other stairs and steps, initial encounter; Y92.009 Unspecified place in unspecified non-institutional (private) residence as the place of occurrence of the external cause

== ENCOUNTER → 2022-12-27 | Outpatient (CLI) | payer MEDICARE, OTHER ==
[~2022-12-27] MED LIST changes: +ADVA115A INH; +LANTINJ4 SC; +LIDO1PAD TOP; +MAGN400T2 PO; +TIZA1TAB12 PO
[2022-12-27 13:32] LABS: ALBUMIN 3.4 G/DL (3.2-5.2); ALKALINE PHOSPHATASE 117 U/L (46-116); ALT/SGPT 18 U/L (7.0-40); AST/SGOT 20 U/L (<34); BILIRUBIN,TOTAL 0.6 MG/DL (0.3-1.2); BLOOD UREA NITROGEN 17 MG/DL (9-23); CALCIUM LEVEL 8.9 MG/DL (8.3-10.6); CARBON DIOXIDE LEVEL 30 MMOL/L (20-31); CHLORIDE LEVEL 105 MMOL/L (98-107); CHOLESTEROL LEVEL 121 MG/DL (<200); CHOLESTEROL RISK RATIO 2.42 (<5); CREATININE FOR GFR 0.59 MG/DL (0.70-1.30); GLOMERULAR FILTRATION RATE > 60.0 (>42); GLUCOSE, FASTING 106 MG/DL (74-106); HDL CHOLESTEROL 49.9 MG/DL (>40); LDL CHOLESTEROL 53.7 MG/DL (<100); NON-HDL-C 71.1 MG/DL; POTASSIUM SERUM 3.5 MMOL/L (3.5-5.1); SODIUM LEVEL 141 MMOL/L (136-145); TOTAL PROTEIN 6.5 G/DL (5.7-8.2); TRIGLYCERIDES LEVEL 87 MG/DL (<150)
[2022-12-27 13:52] LABS: HEMOGLOBIN A1c 6.7 % (4.0-6.0)
== END ==
LOC: M WUC 08:58
PROVIDERS: ATTEND Internal Medicine
DX: E11.40 Type 2 diabetes mellitus with diabetic neuropathy, unspecified (principal); E78.5 Hyperlipidemia, unspecified; I10 Essential (primary) hypertension

== ENCOUNTER → 2023-02-19 | Outpatient (CLI) | payer MEDICARE, OTHER ==
[~2023-02-19] MED LIST changes: +ALBU8.5H INH; +ASPI-523 PO; +FLUC100T3 PO; +LEVO1TAB39 PO; +METO1TAB7 PO; +VITA200028 PO
[2023-02-19 13:39] LABS: HEMATOCRIT 45.4 % (42.0-52.0); HEMOGLOBIN 14.9 g/dl (13.5-17.5); MEAN CORPUSCULAR HEMOGLOBIN 29.7 pg (27.0-33.0); MEAN CORPUSCULAR HGB CONC 32.8 g/dl (32.0-36.5); MEAN CORPUSCULAR VOLUME 90.6 fl (80.0-96.0); PLATELET COUNT, AUTOMATED 229 10^3/uL (150-450); RED BLOOD COUNT 5.01 10^6/uL (4.30-6.10); WHITE BLOOD COUNT 9.8 10^3/uL (4.0-10.0)
[2023-02-19 13:42] LABS: ALBUMIN 3.5 G/DL (3.2-5.2); ALKALINE PHOSPHATASE 139 U/L (46-116); ALT/SGPT 27 U/L (7.0-40); AST/SGOT 17 U/L (<34); BILIRUBIN,TOTAL 0.5 MG/DL (0.3-1.2); BLOOD UREA NITROGEN 16 MG/DL (9-23); CALCIUM LEVEL 9.2 MG/DL (8.3-10.6); CARBON DIOXIDE LEVEL 30 MMOL/L (20-31); CHLORIDE LEVEL 102 MMOL/L (98-107); CREATININE FOR GFR 0.58 MG/DL (0.70-1.30); GLOMERULAR FILTRATION RATE > 60.0 (>42); GLUCOSE, FASTING 122 MG/DL (74-106); POTASSIUM SERUM 3.8 MMOL/L (3.5-5.1); SODIUM LEVEL 141 MMOL/L (136-145); TOTAL PROTEIN 6.8 G/DL (5.7-8.2)
[2023-02-19 13:46] LABS: APPEARANCE, URINE CLOUDY (CLEAR); BACTERIA, URINE AUTO 1+ (NEGATIVE); BILIRUBIN, URINE AUTO NEGATIVE (NEGATIVE); BLOOD, URINE BLOOD 1+ (NEGATIVE); COLOR, URINE AMBER (YELLOW); GLUCOSE, URINE (UA) AUTO NEGATIVE (NEGATIVE); KETONE, URINE AUTO NEGATIVE (NEGATIVE); LEUKOCYTE ESTERASE, URINE AUTO 3+ (NEGATIVE); MUCUS, URINE LARGE (NEGATIVE); NITRITE, URINE AUTO NEGATIVE (NEGATIVE); PROTEIN, URINE AUTO 2+ mg/dL (NEGATIVE); RBC, URINE AUTO 42 /HPF (0-3); SPECIFIC GRAVITY URINE AUTO 1.025 (1.002-1.035); SQUAMOUS EPITHELIAL CELL UR AU 0 /HPF (0-6); UROBILINOGEN, URINE AUTO 0.2 mg/dL (0.0-2.0); WBC, URINE AUTO TNTC /HPF (0-3)
[2023-02-19 13:55] LABS: INR 0.99; PROTHROMBIN TIME 13.3 SECONDS (12.5-14.5)
== END ==
LOC: M PLALAB 09:51
PROVIDERS: ATTEND Urology
DX: N40.1 Benign prostatic hyperplasia with lower urinary tract symptoms (principal); R33.9 Retention of urine, unspecified

== ENCOUNTER 2023-02-22 11:41 | Day surgery (SDC) | payer MEDICARE, OTHER ==
[~2023-02-22] VITALS: Ht 182.9 cm; Wt 72.6 kg
[~2023-02-22 11:41] MED LIST changes: -FLUC100T3 PO; -LEVO1TAB39 PO; +ceFAZolin SOD 2 GM in IV 1 EA IV ONE
[2023-02-22] MEDS ORDERED: LEVO1TAB39 PO (12:14)
[2023-02-22] MEDS ORDERED: FLUC100T3 PO (12:14)
[2023-02-22] MEDS ORDERED: ALBUTEROL SULFATE 2.5MG/0.5ML INH NEB SOLN NEB ONE (12:55)
[2023-02-22] MEDS ORDERED: MIDAZOLAM INJ 2MG/2ML VIAL As Ordered ONE (15:11)
[2023-02-22] MEDS ORDERED: LIDOCAINE 2% 100MG/5ML SDV (FOR ANES.) As Ordered ONE (15:12)
[2023-02-22] MEDS ORDERED: ONDANSETRON 4MG 2ML VIAL As Ordered ONE (15:12)
[2023-02-22] MEDS ORDERED: fentaNYL 100 MCG/2 ML INJECTION As Ordered ONE (15:12)
[2023-02-22] MEDS ORDERED: propofoL 200 MG/20 ML VIAL As Ordered ONE (15:12)
[2023-02-22] MEDS ORDERED: ACETAMINOPHEN 1000MG 100ML IV BAG As Ordered ONE (15:49)
[2023-02-22] MEDS ORDERED: ONDANSETRON 4MG 2ML VIAL IV PRN (16:15)
[2023-02-22] MEDS ORDERED: LR 1,000 ML IV SCH (16:15)
[2023-02-22] MEDS ORDERED: INSULIN LISPRO (NovoLOG) PER UNIT SC PRN (16:15)
[2023-02-22] MEDS ORDERED: fentaNYL 100 MCG/2 ML INJECTION IV PRN (16:15)
[2023-02-22 16:54] VITALS: BP 150/70; TEMP 98; O2SAT 94
== END 2023-02-22 17:40 | disposition home or self-care (01) ==
LOC: M SDC 11:41
PROVIDERS: ATTEND Urology
DX: N40.1 Benign prostatic hyperplasia with lower urinary tract symptoms (principal); I49.3 Ventricular premature depolarization; R00.8 Other abnormalities of heart beat; I10 Essential (primary) hypertension; E11.9 Type 2 diabetes mellitus without complications; E04.1 Nontoxic single thyroid nodule; M19.90 Unspecified osteoarthritis, unspecified site; J45.909 Unspecified asthma, uncomplicated; J44.9 Chronic obstructive pulmonary disease, unspecified; Z87.440 Personal history of urinary (tract) infections; Z87.891 Personal history of nicotine dependence; Z79.899 Other long term (current) drug therapy; Z79.51 Long term (current) use of inhaled steroids; Z79.82 Long term (current) use of aspirin; Z79.4 Long term (current) use of insulin
CPT/HCPCS: 52601; 88305; J0131; J0690; J1100; J2405; J3010

== ENCOUNTER → 2023-03-08 | Outpatient (REF) | payer MEDICARE, OTHER ==
[~2023-03-08] MED LIST changes: +FLUC100T3 PO; +LEVO1TAB39 PO; -ceFAZolin SOD 2 GM in IV 1 EA IV ONE
[2023-03-08 14:59] LABS: APPEARANCE, URINE HAZY (CLEAR); BACTERIA, URINE AUTO NEGATIVE (NEGATIVE); BILIRUBIN, URINE AUTO NEGATIVE (NEGATIVE); BLOOD, URINE BLOOD 3+ (NEGATIVE); COLOR, URINE YELLOW (YELLOW); GLUCOSE, URINE (UA) AUTO NEGATIVE (NEGATIVE); KETONE, URINE AUTO NEGATIVE (NEGATIVE); LEUKOCYTE ESTERASE, URINE AUTO TRACE (NEGATIVE); NITRITE, URINE AUTO NEGATIVE (NEGATIVE); PROTEIN, URINE AUTO 2+ mg/dL (NEGATIVE); RBC, URINE AUTO TNTC /HPF (0-3); SPECIFIC GRAVITY URINE AUTO 1.018 (1.002-1.035); SQUAMOUS EPITHELIAL CELL UR AU 0 /HPF (0-6); UROBILINOGEN, URINE AUTO 0.2 mg/dL (0.0-2.0); WBC, URINE AUTO 10 /HPF (0-3)
== END ==
LOC: M SMT 13:07
PROVIDERS: ATTEND Urology
DX: N40.0 Benign prostatic hyperplasia without lower urinary tract symptoms (principal)

== ENCOUNTER → 2023-03-23 | Outpatient (CLI) | payer MEDICARE, OTHER ==
[2023-03-23 11:09] LABS: BASO # 0.1 10^3/uL (0.0-0.2); BASO % 0.5 % (0.0-1.0); EOS # 0.1 10^3/uL (0.0-0.5); EOS % 1.4 % (0.0-3.0); HEMATOCRIT 42.9 % (42.0-52.0); HEMOGLOBIN 14.3 g/dl (13.5-17.5); LYMPH # 3.6 10^3/uL (1.5-5.0); LYMPH % 38.7 % (24.0-44.0); MEAN CORPUSCULAR HEMOGLOBIN 29.3 pg (27.0-33.0); MEAN CORPUSCULAR HGB CONC 33.3 g/dl (32.0-36.5); MEAN CORPUSCULAR VOLUME 87.9 fl (80.0-96.0); NEUTROPHILS # 4.5 10^3/uL (1.5-8.5); NEUTROPHILS % 48.3 % (36.0-66.0); PLATELET COUNT, AUTOMATED 237 10^3/uL (150-450); RED BLOOD COUNT 4.88 10^6/uL (4.30-6.10); WHITE BLOOD COUNT 9.3 10^3/uL (4.0-10.0)
[2023-03-23 11:34] LABS: ALBUMIN 3.3 G/DL (3.2-5.2); ALKALINE PHOSPHATASE 133 U/L (46-116); ALT/SGPT 21 U/L (7.0-40); AST/SGOT 12 U/L (<34); BILIRUBIN,TOTAL 0.5 MG/DL (0.3-1.2); BLOOD UREA NITROGEN 20 MG/DL (9-23); CALCIUM LEVEL 9.1 MG/DL (8.3-10.6); CARBON DIOXIDE LEVEL 31 MMOL/L (20-31); CHLORIDE LEVEL 101 MMOL/L (98-107); CHOLESTEROL LEVEL 128 MG/DL (<200); CHOLESTEROL RISK RATIO 2.71 (<5); CREATININE FOR GFR 0.67 MG/DL (0.70-1.30); GLOMERULAR FILTRATION RATE > 60.0 (>42); GLUCOSE, FASTING 125 MG/DL (74-106); HDL CHOLESTEROL 47.2 MG/DL (>40); LDL CHOLESTEROL 63.8 MG/DL (<100); NON-HDL-C 80.8 MG/DL; POTASSIUM SERUM 3.7 MMOL/L (3.5-5.1); SODIUM LEVEL 138 MMOL/L (136-145); TOTAL PROTEIN 6.6 G/DL (5.7-8.2); TRIGLYCERIDES LEVEL 85 MG/DL (<150)
[2023-03-23 11:43] LABS: HEMOGLOBIN A1c 6.3 % (4.0-6.0)
== END ==
LOC: M LAB 09:51
PROVIDERS: ATTEND Internal Medicine
DX: I10 Essential (primary) hypertension (principal); E78.5 Hyperlipidemia, unspecified; E11.40 Type 2 diabetes mellitus with diabetic neuropathy, unspecified; Z48.816 Encounter for surgical aftercare following surgery on the genitourinary system

== ENCOUNTER → 2023-03-23 | Outpatient (CLI) | payer MEDICARE, OTHER ==
[2023-03-23 11:09] LABS: BASO # 0.1 10^3/uL (0.0-0.2); BASO % 0.7 % (0.0-1.0); EOS # 0.1 10^3/uL (0.0-0.5); EOS % 1.5 % (0.0-3.0); HEMATOCRIT 42.3 % (42.0-52.0); HEMOGLOBIN 14.1 g/dl (13.5-17.5); LYMPH # 3.6 10^3/uL (1.5-5.0); LYMPH % 37.7 % (24.0-44.0); MEAN CORPUSCULAR HEMOGLOBIN 29.4 pg (27.0-33.0); MEAN CORPUSCULAR HGB CONC 33.3 g/dl (32.0-36.5); MEAN CORPUSCULAR VOLUME 88.3 fl (80.0-96.0); MONO % 10.3 % (2.0-8.0); NEUTROPHILS # 4.7 10^3/uL (1.5-8.5); NEUTROPHILS % 49.7 % (36.0-66.0); PLATELET COUNT, AUTOMATED 240 10^3/uL (150-450); RED BLOOD COUNT 4.79 10^6/uL (4.30-6.10); WHITE BLOOD COUNT 9.5 10^3/uL (4.0-10.0)
== END ==
LOC: M LAB 09:53
PROVIDERS: ATTEND Urology
DX: Z48.816 Encounter for surgical aftercare following surgery on the genitourinary system (principal)

== ENCOUNTER → 2023-03-31 | Outpatient (CLI) | payer MEDICARE, OTHER ==
[2023-03-31 12:38] LABS: FREE T4 1.14 NG/DL (0.89-1.76)
[2023-03-31 12:39] LABS: THYROID STIMULATING HORMONE 0.327 uIU/ML (0.55-4.78); TOTAL T3 94.7 NG/DL (60.0-181.0)
== END ==
LOC: M LAB 11:21
PROVIDERS: ATTEND Internal Medicine Endocrinology, Diabetes & Metabolism
DX: E05.90 Thyrotoxicosis, unspecified without thyrotoxic crisis or storm (principal)

== ENCOUNTER → 2023-04-13 | Outpatient (CLI) | payer MEDICARE, OTHER | LOC: M RAD 10:33 | PROVIDERS: ATTEND Internal Medicine Endocrinology, Diabetes & Metabolism | DX: E04.2 Nontoxic multinodular goiter (principal) ==

== ENCOUNTER → 2023-04-19 | Outpatient (REF) | payer MEDICARE, OTHER | LOC: M LAB REF 15:43 | PROVIDERS: ATTEND Student in an Organized Health Care Education/Training Program | DX: R19.7 Diarrhea, unspecified (principal); R63.4 Abnormal weight loss ==

== ENCOUNTER → 2023-07-19 | Outpatient (CLI) | payer MEDICARE, OTHER ==
[2023-07-19 11:10] LABS: HEMOGLOBIN A1c 7.6 % (4.0-6.0)
[2023-07-19 11:16] LABS: ALBUMIN 3.4 G/DL (3.2-5.2); ALKALINE PHOSPHATASE 143 U/L (46-116); ALT/SGPT 21 U/L (7.0-40); AST/SGOT 15 U/L (<34); BILIRUBIN,TOTAL 0.5 MG/DL (0.3-1.2); BLOOD UREA NITROGEN 16 MG/DL (9-23); CALCIUM LEVEL 9.1 MG/DL (8.3-10.6); CARBON DIOXIDE LEVEL 32 MMOL/L (20-31); CHLORIDE LEVEL 104 MMOL/L (98-107); CHOLESTEROL LEVEL 131 MG/DL (<200); CHOLESTEROL RISK RATIO 2.89 (<5); CREATININE FOR GFR 0.61 MG/DL (0.70-1.30); GLOMERULAR FILTRATION RATE > 60.0 (>35); GLUCOSE, FASTING 120 MG/DL (74-106); HDL CHOLESTEROL 45.2 MG/DL (>40); LDL CHOLESTEROL 64.6 MG/DL (<100); NON-HDL-C 85.8 MG/DL; POTASSIUM SERUM 3.6 MMOL/L (3.5-5.1); SODIUM LEVEL 144 MMOL/L (136-145); TOTAL PROTEIN 6.9 G/DL (5.7-8.2); TRIGLYCERIDES LEVEL 106 MG/DL (<150)
== END ==
LOC: M WUC 08:34
PROVIDERS: ATTEND Internal Medicine
DX: E78.5 Hyperlipidemia, unspecified (principal); I10 Essential (primary) hypertension; E11.40 Type 2 diabetes mellitus with diabetic neuropathy, unspecified

== ENCOUNTER → 2023-08-07 | Outpatient (REF) | payer MEDICARE, OTHER ==
[2023-08-07 17:30] LABS: APPEARANCE, URINE HAZY (CLEAR); BACTERIA, URINE AUTO NEGATIVE (NEGATIVE); BILIRUBIN, URINE AUTO NEGATIVE (NEGATIVE); BLOOD, URINE BLOOD NEGATIVE (NEGATIVE); COLOR, URINE YELLOW (YELLOW); GLUCOSE, URINE (UA) AUTO 3+ mg/dL (NEGATIVE); KETONE, URINE AUTO NEGATIVE (NEGATIVE); LEUKOCYTE ESTERASE, URINE AUTO TRACE (NEGATIVE); MUCUS, URINE SMALL (NEGATIVE); NITRITE, URINE AUTO NEGATIVE (NEGATIVE); PROTEIN, URINE AUTO 2+ mg/dL (NEGATIVE); RBC, URINE AUTO 5 /HPF (0-3); SPECIFIC GRAVITY URINE AUTO 1.021 (1.002-1.035); SQUAMOUS EPITHELIAL CELL UR AU 0 /HPF (0-6); UROBILINOGEN, URINE AUTO 0.2 mg/dL (0.0-2.0); WBC, URINE AUTO 20 /HPF (0-3)
== END ==
LOC: M SMT 16:57
PROVIDERS: ATTEND Urology
DX: N40.0 Benign prostatic hyperplasia without lower urinary tract symptoms (principal)

== ENCOUNTER → 2023-09-06 | Outpatient (REF) | payer MEDICARE, OTHER ==
[2023-09-06 15:53] LABS: APPEARANCE, URINE MANUAL HAZY (CLEAR); COLOR, URINE MANUAL YELLOW (YELLOW); GLUCOSE, URINE (UA) MANUAL 2+(250 MG/DL) mg/dL (NEGATIVE); PROTEIN, URINE MANUAL 1+ mg/dL (NEGATIVE); SPECIFIC GRAVITY,URINE MANUAL 1.015 (1.002-1.035)
[2023-09-06 15:54] LABS: BILIRUBIN, URINE MANUAL NEGATIVE (NEGATIVE); BLOOD URINE MANUAL POSITIVE (NEGATIVE); KETONE, URINE MANUAL NEGATIVE (NEGATIVE); LEUKOCYTE ESTERASE, URINE MAN POSITIVE (NEGATIVE); NITRITE, URINE MANUAL POSITIVE (NEGATIVE); UROBILINOGEN, URINE MANUAL NORMAL (NORMAL)
[2023-09-06 15:55] LABS: BACTERIA, URINE MOD AMOUNT; HYALINE CAST, URINE NONE SEEN /lpf (0-1); SQUAMOUS EPITHELIAL CELL URINE NONE SEEN /hpf (SMALL AMT); WBC, URINE TNTC /hpf (0-3)
== END ==
LOC: M SMT 15:29
PROVIDERS: ATTEND Nurse Practitioner Family
DX: R30.0 Dysuria (principal)

== ENCOUNTER → 2023-09-26 | Outpatient (CLI) | payer MEDICARE, OTHER ==
[2023-09-26 12:33] LABS: ALBUMIN 3.4 G/DL (3.2-5.2); ALKALINE PHOSPHATASE 116 U/L (46-116); ALT/SGPT 17 U/L (7.0-40); AST/SGOT 14 U/L (<34); BILIRUBIN,TOTAL 0.4 MG/DL (0.3-1.2); BLOOD UREA NITROGEN 20 MG/DL (9-23); CALCIUM LEVEL 9.2 MG/DL (8.3-10.6); CARBON DIOXIDE LEVEL 34 MMOL/L (20-31); CHLORIDE LEVEL 104 MMOL/L (98-107); CHOLESTEROL LEVEL 109 MG/DL (<200); CHOLESTEROL RISK RATIO 2.49 (<5); CREATININE FOR GFR 0.67 MG/DL (0.70-1.30); GLOMERULAR FILTRATION RATE > 60.0 (>35); GLUCOSE, FASTING 95 MG/DL (74-106); HDL CHOLESTEROL 43.7 MG/DL (>40); LDL CHOLESTEROL 49.5 MG/DL (<100); NON-HDL-C 65.3 MG/DL; POTASSIUM SERUM 3.8 MMOL/L (3.5-5.1); SODIUM LEVEL 141 MMOL/L (136-145); TOTAL PROTEIN 6.7 G/DL (5.7-8.2); TRIGLYCERIDES LEVEL 79 MG/DL (<150)
[2023-09-26 13:10] LABS: HEMOGLOBIN A1c 7.6 % (4.0-6.0)
== END ==
LOC: M WUC 08:48
PROVIDERS: ATTEND Internal Medicine
DX: E78.5 Hyperlipidemia, unspecified (principal); I10 Essential (primary) hypertension; E11.40 Type 2 diabetes mellitus with diabetic neuropathy, unspecified; N40.0 Benign prostatic hyperplasia without lower urinary tract symptoms; Z12.5 Encounter for screening for malignant neoplasm of prostate

== ENCOUNTER → 2023-09-26 | Outpatient (CLI) | payer MEDICARE, OTHER ==
[2023-09-27 14:12] LABS: PSA TOTAL 0.3 ng/mL (0.0-4.0)
== END ==
LOC: M WUC 08:50
PROVIDERS: ATTEND Urology
DX: N40.0 Benign prostatic hyperplasia without lower urinary tract symptoms (principal)

== ENCOUNTER → 2024-01-02 | Outpatient (CLI) | payer MEDICARE, OTHER ==
[2024-01-02 15:40] LABS: FREE T4 1.05 NG/DL (0.89-1.76); THYROID STIMULATING HORMONE 0.7 uIU/ML (0.55-4.78); TOTAL T3 96.3 NG/DL (60.0-181.0)
== END ==
LOC: M WUC 09:36
PROVIDERS: ATTEND Internal Medicine Endocrinology, Diabetes & Metabolism
DX: E04.2 Nontoxic multinodular goiter (principal); E05.90 Thyrotoxicosis, unspecified without thyrotoxic crisis or storm; E78.5 Hyperlipidemia, unspecified; E11.40 Type 2 diabetes mellitus with diabetic neuropathy, unspecified; I10 Essential (primary) hypertension

== ENCOUNTER → 2024-01-02 | Outpatient (CLI) | payer MEDICARE, OTHER ==
[2024-01-02 14:53] LABS: BASO # 0.1 10^3/uL (0.0-0.2); BASO % 0.7 % (0.0-1.0); EOS # 0.2 10^3/uL (0.0-0.5); EOS % 1.5 % (0.0-3.0); HEMATOCRIT 43.8 % (42.0-52.0); HEMOGLOBIN 14.8 g/dl (13.5-17.5); LYMPH # 3.9 10^3/uL (1.5-5.0); LYMPH % 33.6 % (24.0-44.0); MEAN CORPUSCULAR HEMOGLOBIN 31.2 pg (27.0-33.0); MEAN CORPUSCULAR HGB CONC 33.8 g/dl (32.0-36.5); MEAN CORPUSCULAR VOLUME 92.2 fl (80.0-96.0); MONO # 1.4 10^3/uL (0.0-0.8); MONO % 11.9 % (2.0-8.0); NEUTROPHILS # 6.1 10^3/uL (1.5-8.5); NEUTROPHILS % 52.2 % (36.0-66.0); PLATELET COUNT, AUTOMATED 238 10^3/uL (150-450); RED BLOOD COUNT 4.75 10^6/uL (4.30-6.10)
[2024-01-02 14:59] LABS: ALBUMIN 3.5 G/DL (3.2-5.2); ALKALINE PHOSPHATASE 116 U/L (46-116); ALT/SGPT 23 U/L (7.0-40); AST/SGOT 14 U/L (<34); BILIRUBIN,TOTAL 0.6 MG/DL (0.3-1.2); BLOOD UREA NITROGEN 17 MG/DL (9-23); CALCIUM LEVEL 9.1 MG/DL (8.3-10.6); CARBON DIOXIDE LEVEL 32 MMOL/L (20-31); CHLORIDE LEVEL 103 MMOL/L (98-107); CHOLESTEROL LEVEL 123 MG/DL (<200); CHOLESTEROL RISK RATIO 2.62 (<5); CREATININE FOR GFR 0.68 MG/DL (0.70-1.30); GLOMERULAR FILTRATION RATE > 60.0 (>35); GLUCOSE, FASTING 125 MG/DL (74-106); HDL CHOLESTEROL 46.8 MG/DL (>40); NON-HDL-C 76.2 MG/DL; POTASSIUM SERUM 3.8 MMOL/L (3.5-5.1); SODIUM LEVEL 141 MMOL/L (136-145); TOTAL PROTEIN 6.6 G/DL (5.7-8.2); TRIGLYCERIDES LEVEL 106 MG/DL (<150)
[2024-01-02 15:29] LABS: HEMOGLOBIN A1c 6.8 % (4.0-6.0)
[2024-01-03 10:30] LABS: WHITE BLOOD COUNT 11.7 10^3/uL (4.0-10.0)
== END ==
LOC: M WUC 09:33
PROVIDERS: ATTEND Internal Medicine
DX: E78.5 Hyperlipidemia, unspecified (principal); E11.40 Type 2 diabetes mellitus with diabetic neuropathy, unspecified; I10 Essential (primary) hypertension

== ENCOUNTER 2024-02-27 12:18 | Outpatient (RCR) | payer MEDICARE, OTHER ==
[~2024-02-27 12:18] MED LIST changes: -OLME1TAB51 PO; +OLME1TAB92 PO
== END 2024-03-05 ==
LOC: M PT 12:18
PROVIDERS: ATTEND Internal Medicine
DX: R26.81 Unsteadiness on feet (principal)

== ENCOUNTER 2024-03-06 14:07 | Outpatient (RCR) | payer MEDICARE, OTHER ==
[2024-03-09] MEDS ORDERED: TIZA1TAB12 PO (15:16)
[2024-03-09] MEDS ORDERED: MUPI2OI TOP (15:23)
[2024-03-09] MEDS ORDERED: ECOT81TA5 PO (15:23)
[2024-03-09] MEDS ORDERED: CETI-24 PO (15:23)
[2024-03-09] MEDS ORDERED: ZINC57OI TOP (15:23)
[2024-03-09] MEDS ORDERED: GLUC3SPR (15:23)
[2024-03-09] MEDS ORDERED: OLME1TAB54 PO (15:23)
[2024-03-14] MEDS ORDERED: CEPH500C PO (07:12)
[2024-03-14] MEDS ORDERED: DULC10SU2 PR (08:41)
== END 2024-04-05 ==
LOC: M PT 14:07
PROVIDERS: ATTEND Internal Medicine
DX: R26.81 Unsteadiness on feet (principal)

== ENCOUNTER 2024-03-09 10:52 | Inpatient (IN) | payer MEDICARE, OTHER ==
[~2024-03-09] VITALS: Ht 188 cm; Wt 97.9 kg
[2024-03-09] VITALS (12 sets, daily range): BP systolic 138–170; BP diastolic 64–82; TEMP 97.7–98.8; O2SAT 94–96
[2024-03-09] MEDS: ONDANSETRON 4MG 2ML VIAL IV ONE (12:28)
[2024-03-09] MEDS: NS 1,000 ML IV ONE ×2 (12:29→15:13)
[2024-03-09] MEDS: amLODIPine 5 MG TAB PO ONE (12:29)
[2024-03-09] MEDS ORDERED: ISOVUE-370 76% 100ML VIAL As Ordered ONE (12:44)
[2024-03-09 12:51] LABS: BASO % 0.2 % (0.0-1.0); HEMOGLOBIN 16.3 g/dl (13.5-17.5); LYMPH # 1.7 10^3/uL (1.5-5.0); LYMPH % 13.7 % (24.0-44.0); MEAN CORPUSCULAR HEMOGLOBIN 31.3 pg (27.0-33.0); MEAN CORPUSCULAR HGB CONC 34.7 g/dl (32.0-36.5); MEAN CORPUSCULAR VOLUME 90.4 fl (80.0-96.0); MONO # 0.5 10^3/uL (0.0-0.8); MONO % 3.8 % (2.0-8.0); NEUTROPHILS # 10.3 10^3/uL (1.5-8.5); NEUTROPHILS % 82.1 % (36.0-66.0); PLATELET COUNT, AUTOMATED 219 10^3/uL (150-450); WHITE BLOOD COUNT 12.5 10^3/uL (4.0-10.0)
[2024-03-09 13:04] LABS: INR 1.24; PARTIAL THROMBOPLASTIN TIME 27.7 SECONDS (24.8-34.2); PROTHROMBIN TIME 15.2 SECONDS (12.5-14.5)
[2024-03-09 13:15] LABS: CK-MB VALUE MASS 2.9 NG/ML (<3.6); LIPASE 28 U/L (12-53)
[2024-03-09 13:17] LABS: ALBUMIN 3.7 G/DL (3.2-5.2); ALKALINE PHOSPHATASE 142 U/L (46-116); ALT/SGPT 18 U/L (7.0-40); AST/SGOT 19 U/L (<34); BILIRUBIN,DIRECT 0.2 MG/DL (<0.4); BILIRUBIN,TOTAL 0.6 MG/DL (0.3-1.2); BLOOD UREA NITROGEN 26 MG/DL (9-23); CALCIUM LEVEL 9.2 MG/DL (8.3-10.6); CARBON DIOXIDE LEVEL 28 MMOL/L (20-31); CHLORIDE LEVEL 99 MMOL/L (98-107); CREATININE FOR GFR 0.72 MG/DL (0.70-1.30); GLOMERULAR FILTRATION RATE > 60.0 (>35); GLUCOSE, FASTING 295 MG/DL (74-106); POTASSIUM SERUM 4.7 MMOL/L (3.5-5.1); SODIUM LEVEL 135 MMOL/L (136-145); TOTAL PROTEIN 7.3 G/DL (5.7-8.2)
[2024-03-09 13:18] LABS: CPK CREATINE PHOSPHOKINASE 38 U/L (46-171); MB/CK RELATIVE INDEX 7.63 (< OR =4)
[2024-03-09] MEDS: CEFEPIME HCL 2 GM in D5W MINI-BAG PLUS 50 ML IV ONE (13:39)
[2024-03-09] MEDS: VANCOMYCIN HCL 1,000 MG, VIAL MATE ADAPTER 1 EACH in D5W 250 ML IV ONE (15:12)
[2024-03-09] MEDS ORDERED: TIZA1TAB12 PO (15:16)
[2024-03-09] MEDS ORDERED: MUPI2OI TOP (15:23)
[2024-03-09] MEDS ORDERED: ECOT81TA5 PO (15:23)
[2024-03-09] MEDS ORDERED: CETI-24 PO (15:23)
[2024-03-09] MEDS ORDERED: ZINC57OI TOP (15:23)
[2024-03-09] MEDS ORDERED: GLUC3SPR (15:23)
[2024-03-09] MEDS ORDERED: OLME1TAB54 PO (15:23)
[2024-03-09] MEDS ORDERED: HOME MED LIST COMPLETE! XX SCH (15:25)
[2024-03-09] MEDS ORDERED: GLUCOSE 4 GM CHEW PO PRN (16:00)
[2024-03-09] MEDS ORDERED: DEXTROSE 50% 50ML SYRINGE IV PRN (16:00)
[2024-03-09] MEDS ORDERED: GLUCAGON INJ 1MG VIAL SC PRN (16:00)
[2024-03-09] MEDS ORDERED: FLUTICASONE PROP 0.05% NASAL SPRAY 16 GM (FLONASE) NARES PRN (16:00)
[2024-03-09] MEDS ORDERED: ALBUTEROL 90 MCG/ACT 8GM HFA INHALER INH PRN (16:00)
[2024-03-09] MEDS ORDERED: ACETAMINOPHEN *IV* 1,000 MG in IV 1 EA IV PRN (16:40)
[2024-03-09] MEDS ORDERED: MORPHINE 2 MG/ML 1ML VIAL IV PRN (16:40)
[2024-03-09] MEDS: NS 1,000 ML IV SCH (17:37)
[2024-03-09] MEDS ORDERED: INSULIN LISPRO (NovoLOG) PER UNIT SC SCH (18:00)
[2024-03-09] MEDS: METOPROLOL 5 MG/5 ML VIAL IV SCH (18:48)
[2024-03-09] MEDS: ENOXAPARIN 40MG/0.4ML SYRINGE (J1650 PER 10MG) SC SCH (18:49)
[2024-03-09] MEDS: PIPERACILLIN/TAZOBACTAM SOD 4.5 GM in D5W MINI-BAG PLUS 50 ML IV SCH (18:49)
[2024-03-09] MEDS: INSULIN LISPRO (NovoLOG) PER UNIT SC SCH (18:50)
[2024-03-09] MEDS: ADVAIR HFA 115/21MCG INHALER INH SCH (19:23)
[2024-03-09] MEDS: PANTOPRAZOLE 40MG VIAL IV SCH (20:54)
[2024-03-09] MEDS: NYSTATIN 100,000 UNITS/GM TOPICAL PWD 15GM TOP SCH (21:32)
[2024-03-10] VITALS (38 sets, daily range): BP systolic 114–164; BP diastolic 57–75; TEMP 97.6–98.2; O2SAT 82–100
[2024-03-10] MEDS: IPRATROPIUM 0.5MG/ALBUTEROL 2.5MG INH SOL UD 3ML (DUONEB) NEB SCH (07:18)
[2024-03-10 07:38] LABS: ALBUMIN 2.9 G/DL (3.2-5.2); ALKALINE PHOSPHATASE 103 U/L (46-116); ALT/SGPT 13 U/L (7.0-40); AST/SGOT 11 U/L (<34); BILIRUBIN,TOTAL 0.8 MG/DL (0.3-1.2); BLOOD UREA NITROGEN 19 MG/DL (9-23); CALCIUM LEVEL 8.4 MG/DL (8.3-10.6); CARBON DIOXIDE LEVEL 28 MMOL/L (20-31); CHLORIDE LEVEL 101 MMOL/L (98-107); CREATININE FOR GFR 0.74 MG/DL (0.70-1.30); GLOMERULAR FILTRATION RATE > 60.0 (>35); GLUCOSE, FASTING 237 MG/DL (74-106); MAGNESIUM LEVEL 1.6 MG/DL (1.8-2.4); POTASSIUM SERUM 3.3 MMOL/L (3.5-5.1); SODIUM LEVEL 138 MMOL/L (136-145); TOTAL PROTEIN 5.9 G/DL (5.7-8.2)
[2024-03-10 07:46] LABS: HEMATOCRIT 40.2 % (42.0-52.0); MEAN CORPUSCULAR HEMOGLOBIN 30.8 pg (27.0-33.0); MEAN CORPUSCULAR HGB CONC 34.6 g/dl (32.0-36.5); MEAN CORPUSCULAR VOLUME 88.9 fl (80.0-96.0); PLATELET COUNT, AUTOMATED 230 10^3/uL (150-450); RED BLOOD COUNT 4.52 10^6/uL (4.30-6.10); WHITE BLOOD COUNT 16.5 10^3/uL (4.0-10.0)
[2024-03-10 08:00] LABS: HEMOGLOBIN 13.9 g/dl (13.5-17.5)
[2024-03-10] MEDS ORDERED: POTASSIUM CHLORIDE INJ 40 MEQ in KCL 40MEQ in NS 1000ML 1,000 ML IV SCH (08:15)
[2024-03-10] MEDS: KCL 40MEQ in NS 1000ML 1,000 ML IV SCH (09:09)
[2024-03-10] MEDS: MAG SULF 1GM/100ML (MAG RUN) 1 GM in IV 1 EA IV SCH (09:10)
[2024-03-11] VITALS (12 sets, daily range): BP systolic 118–145; BP diastolic 61–85; TEMP 97.6–99.3; O2SAT 92–100
[2024-03-11 06:33] LABS: HEMATOCRIT 35.7 % (42.0-52.0); HEMOGLOBIN 12.4 g/dl (13.5-17.5); MEAN CORPUSCULAR HEMOGLOBIN 31.6 pg (27.0-33.0); MEAN CORPUSCULAR HGB CONC 34.7 g/dl (32.0-36.5); MEAN CORPUSCULAR VOLUME 90.8 fl (80.0-96.0); PLATELET COUNT, AUTOMATED 149 10^3/uL (150-450); RED BLOOD COUNT 3.93 10^6/uL (4.30-6.10); WHITE BLOOD COUNT 8.7 10^3/uL (4.0-10.0)
[2024-03-11 07:00] LABS: ALBUMIN 2.6 G/DL (3.2-5.2); ALKALINE PHOSPHATASE 83 U/L (46-116); ALT/SGPT 12 U/L (7.0-40); AST/SGOT 13 U/L (<34); BILIRUBIN,TOTAL 0.7 MG/DL (0.3-1.2); BLOOD UREA NITROGEN 14 MG/DL (9-23); CALCIUM LEVEL 7.7 MG/DL (8.3-10.6); CARBON DIOXIDE LEVEL 29 MMOL/L (20-31); CHLORIDE LEVEL 106 MMOL/L (98-107); CREATININE FOR GFR 0.79 MG/DL (0.70-1.30); GLOMERULAR FILTRATION RATE > 60.0 (>35); GLUCOSE, FASTING 240 MG/DL (74-106); MAGNESIUM LEVEL 1.9 MG/DL (1.8-2.4); POTASSIUM SERUM 2.9 MMOL/L (3.5-5.1); SODIUM LEVEL 142 MMOL/L (136-145); TOTAL PROTEIN 5.6 G/DL (5.7-8.2)
[2024-03-11] MEDS: KCL 10MEQ/100ML SWI (KRUN) 10 MEQ in IV 1 EA IV SCH ×2 (08:20→15:52)
[2024-03-11 12:22] LABS: IONIZED CALCIUM 4.3 MG/DL (4.5-5.3)
[2024-03-11 12:56] LABS: MAGNESIUM LEVEL 1.8 MG/DL (1.8-2.4)
[2024-03-11] MEDS ORDERED: KCL 20MEQ IN 0.45NS 1000ML 1,000 ML IV SCH (13:55)
[2024-03-11] MEDS: MAG SULF 1GM/100ML (MAG RUN) 1 GM in IV 1 EA IV ONE (14:43)
[2024-03-11] MEDS: CALCIUM GLUCONATE 1,000 MG in D5W MINI-BAG PLUS 100 ML IV ONE (15:52)
[2024-03-11] MEDS: NS 0.45% 1,000 ML IV ONE (17:29)
[2024-03-11] MEDS ORDERED: traMADol 50 MG TAB PO PRN (18:20)
[2024-03-11] MEDS ORDERED: ACETAMINOPHEN TAB 650MG DOSE (2X325MG) PO PRN (18:20)
[2024-03-11] MEDS: amLODIPine 5 MG TAB PO ONE (18:31)
[2024-03-11 19:03] LABS: IONIZED CALCIUM 4.4 MG/DL (4.5-5.3)
[2024-03-11 19:29] LABS: MAGNESIUM LEVEL 1.9 MG/DL (1.8-2.4)
[2024-03-11] MEDS: CETIRIZINE (ZyrTEC) 10 MG TAB PO SCH (20:25)
[2024-03-11] MEDS: TAMSULOSIN 0.4 MG CAP PO SCH (20:25)
[2024-03-11] MEDS: PRIMIDONE 250 MG TAB PO SCH (20:25)
[2024-03-11] MEDS: MONTELUKAST 10 MG TAB PO SCH (20:25)
[2024-03-11] MEDS: FINASTERIDE 5MG TAB PO SCH (20:25)
[2024-03-11] MEDS: cefTRIAXone SOD 1 GM in D5W MINI-BAG PLUS 50 ML IV SCH (20:25)
[2024-03-11] MEDS: PANTOPRAZOLE 40MG TAB (PROTONIX) PO SCH (20:25)
[2024-03-11] MEDS: LEVEMIR (INSULIN DETEMIR) 1 UNITS/0.01ML SC SCH (20:47)
[2024-03-12 00:08] LABS: IONIZED CALCIUM 4.4 MG/DL (4.5-5.3)
[2024-03-12 00:29] LABS: MAGNESIUM LEVEL 1.9 MG/DL (1.8-2.4); POTASSIUM SERUM 3.1 MMOL/L (3.5-5.1)
[2024-03-12] MEDS ORDERED: KCL 10MEQ/100ML SWI (KRUN) 10 MEQ in IV 1 EA IV SCH (01:00)
[2024-03-12 04:00] VITALS: BP 131/66; TEMP 98.9; O2SAT 98
[2024-03-12 05:51] LABS: HEMATOCRIT 35.4 % (42.0-52.0); MEAN CORPUSCULAR HEMOGLOBIN 30.8 pg (27.0-33.0); MEAN CORPUSCULAR HGB CONC 33.9 g/dl (32.0-36.5); MEAN CORPUSCULAR VOLUME 90.8 fl (80.0-96.0); PLATELET COUNT, AUTOMATED 144 10^3/uL (150-450); WHITE BLOOD COUNT 8.5 10^3/uL (4.0-10.0)
[2024-03-12 06:15] LABS: BLOOD UREA NITROGEN 8 MG/DL (9-23); CALCIUM LEVEL 7.8 MG/DL (8.3-10.6); CARBON DIOXIDE LEVEL 26 MMOL/L (20-31); CHLORIDE LEVEL 107 MMOL/L (98-107); CREATININE FOR GFR 0.61 MG/DL (0.70-1.30); GLOMERULAR FILTRATION RATE > 60.0 (>35); GLUCOSE, FASTING 165 MG/DL (74-106); MAGNESIUM LEVEL 1.9 MG/DL (1.8-2.4); POTASSIUM SERUM 3.2 MMOL/L (3.5-5.1); SODIUM LEVEL 141 MMOL/L (136-145)
[2024-03-12 07:47] VITALS: BP 152/82; TEMP 98.9; O2SAT 99
[2024-03-12 09:15] VITALS: BP 143/68; TEMP 97.9; O2SAT 98
[2024-03-12] MEDS: POTASSIUM CHLORIDE 10MEQ SR TABLET PO SCH (09:37)
[2024-03-12] MEDS: amLODIPine 5 MG TAB PO SCH (09:38)
[2024-03-12] MEDS: METOPROLOL SUCC (TopROL XL) 50MG **XL** TAB PO SCH (09:38)
[2024-03-12] MEDS: ATORVASTATIN 10 MG TAB PO SCH (09:38)
[2024-03-12] MEDS ORDERED: SODIUM CHLORIDE NASAL 0.65% SPRAY BTL (OCEAN) PRN (11:25)
[2024-03-12] MEDS: ONDANSETRON 4MG 2ML VIAL IV PRN (11:28)
[2024-03-12 12:00] VITALS: BP 113/56; TEMP 97.7; O2SAT 94
[2024-03-12] MEDS ORDERED: SODIUM CHLORIDE 0.65% NOSE DROPS 30ML BTL (BABY AYR) SCH (12:00)
[2024-03-12] MEDS: SODIUM CHLORIDE NASAL 0.65% SPRAY BTL (OCEAN) SCH (12:20)
[2024-03-12] MEDS ORDERED: GLUCOSE 4 GM CHEW PO PRN (19:50)
[2024-03-12] MEDS ORDERED: GLUCAGON INJ 1MG VIAL SC PRN (19:50)
[2024-03-12] MEDS ORDERED: DEXTROSE 50% 50ML SYRINGE IV PRN (19:50)
[2024-03-12 19:55] VITALS: BP 131/73; TEMP 97.7; O2SAT 96
[2024-03-12] MEDS: INSULIN LISPRO (NovoLOG) PER UNIT SC SCH (20:35)
[2024-03-13] VITALS (7 sets, daily range): BP systolic 97–155; BP diastolic 67–95; TEMP 97.7–98.6; O2SAT 92–96
[2024-03-13 08:05] LABS: IONIZED CALCIUM 4.4 MG/DL (4.5-5.3)
[2024-03-13] MEDS: INSULIN LISPRO (NovoLOG) PER UNIT SC SCH (08:05)
[2024-03-13] MEDS: LEVEMIR (INSULIN DETEMIR) 1 UNITS/0.01ML SC ONE (08:17)
[2024-03-13 08:46] LABS: BLOOD UREA NITROGEN 6 MG/DL (9-23); CARBON DIOXIDE LEVEL 27 MMOL/L (20-31); CHLORIDE LEVEL 106 MMOL/L (98-107); CREATININE FOR GFR 0.59 MG/DL (0.70-1.30); GLOMERULAR FILTRATION RATE > 60.0 (>35); GLUCOSE, FASTING 189 MG/DL (74-106); MAGNESIUM LEVEL 1.6 MG/DL (1.8-2.4); POTASSIUM SERUM 3.8 MMOL/L (3.5-5.1); SODIUM LEVEL 139 MMOL/L (136-145)
[2024-03-13] MEDS: CALCIUM/VITAMIN D 500 MG TAB PO SCH (09:00)
[2024-03-13] MEDS: POTASSIUM CHLORIDE 10MEQ SR TABLET PO SCH (09:14)
[2024-03-13] MEDS: CALCIUM GLUCONATE 1,000 MG in D5W MINI-BAG PLUS 100 ML IV ONE (09:15)
[2024-03-13] MEDS: MAG SULF 1GM/100ML (MAG RUN) 1 GM in IV 1 EA IV ONE (09:15)
[2024-03-13] MEDS: BISACODYL 10MG SUPP PR ONE (16:50)
[2024-03-13] MEDS: LACTOBACILLUS ACIDOPHILUS CAP (BACID) PO SCH (18:24)
[2024-03-13] MEDS: NS 1,000 ML IV SCH (18:25)
[2024-03-13] MEDS: NS 500 ML IV ONE (18:25)
[2024-03-13 18:49] LABS: HEMOGLOBIN A1c 7.5 % (4.0-6.0)
[2024-03-13] MEDS: LEVEMIR (INSULIN DETEMIR) 1 UNITS/0.01ML SC SCH (20:30)
[2024-03-13] MEDS: MAGNESIUM GLUCONATE 500 MG TAB PO SCH (20:31)
[2024-03-13] MEDS: CEPHALEXIN 500 MG CAP PO SCH (20:33)
[2024-03-14 04:57] VITALS: BP 157/65; TEMP 97.5; O2SAT 96
[2024-03-14 06:18] LABS: BLOOD UREA NITROGEN < 5 MG/DL (9-23); CALCIUM LEVEL 7.7 MG/DL (8.3-10.6); CARBON DIOXIDE LEVEL 27 MMOL/L (20-31); CHLORIDE LEVEL 108 MMOL/L (98-107); CREATININE FOR GFR 0.57 MG/DL (0.70-1.30); GLOMERULAR FILTRATION RATE > 60.0 (>35); GLUCOSE, FASTING 179 MG/DL (74-106); POTASSIUM SERUM 3.7 MMOL/L (3.5-5.1); SODIUM LEVEL 140 MMOL/L (136-145)
[2024-03-14 06:58] LABS: MAGNESIUM LEVEL 1.6 MG/DL (1.8-2.4)
[2024-03-14] MEDS ORDERED: CEPH500C PO (07:12)
[2024-03-14 07:29] LABS: BASO % 0.3 % (0.0-1.0); EOS # 0.4 10^3/uL (0.0-0.5); EOS % 4.1 % (0.0-3.0); HEMOGLOBIN 11.6 g/dl (13.5-17.5); LYMPH # 2.2 10^3/uL (1.5-5.0); LYMPH % 25.5 % (24.0-44.0); MEAN CORPUSCULAR HEMOGLOBIN 31.8 pg (27.0-33.0); MEAN CORPUSCULAR HGB CONC 35.2 g/dl (32.0-36.5); MEAN CORPUSCULAR VOLUME 90.4 fl (80.0-96.0); MONO # 1.2 10^3/uL (0.0-0.8); MONO % 14.3 % (2.0-8.0); NEUTROPHILS # 4.8 10^3/uL (1.5-8.5); NEUTROPHILS % 55.7 % (36.0-66.0); PLATELET COUNT, AUTOMATED 159 10^3/uL (150-450); RED BLOOD COUNT 3.65 10^6/uL (4.30-6.10); WHITE BLOOD COUNT 8.6 10^3/uL (4.0-10.0)
[2024-03-14 07:36] LABS: ERYTHROCYTE SEDIMENTATION RATE 7 mm/hr (0-20)
[2024-03-14 07:43] LABS: PROCALCITONIN 0.04 ng/ml
[2024-03-14] MEDS: CALCIUM CARBONATE 500 MG CHEW U/D PO ONE (07:45)
[2024-03-14] MEDS: CALCIUM/VITAMIN D 500 MG TAB PO ONE (07:46)
[2024-03-14] MEDS ORDERED: DULC10SU2 PR (08:41)
[2024-03-14] MEDS ORDERED: BISACODYL 10MG SUPP PR SCH (09:00)
== END 2024-03-14 08:15 | DRG 698 ==
LOC: M ED 10:52 → M ED INP 14:53 → M PCU 16:06 → M MS5PR 03-12 08:52
PROVIDERS: ADMIT Preventive Medicine Undersea and Hyperbaric Medicine; ATTEND General Practice
DX: T83.511A Infection and inflammatory reaction due to indwelling urethral catheter, initial encounter (principal); A41.9 Sepsis, unspecified organism; K56.609 Unspecified intestinal obstruction, unspecified as to partial versus complete obstruction; E87.20 Acidosis, unspecified; N39.0 Urinary tract infection, site not specified; I10 Essential (primary) hypertension; E78.5 Hyperlipidemia, unspecified; E11.9 Type 2 diabetes mellitus without complications; N40.1 Benign prostatic hyperplasia with lower urinary tract symptoms; R33.9 Retention of urine, unspecified; M54.16 Radiculopathy, lumbar region; G25.0 Essential tremor; E83.51 Hypocalcemia; B96.20 Unspecified Escherichia coli [E. coli] as the cause of diseases classified elsewhere; R15.9 Full incontinence of feces; R13.10 Dysphagia, unspecified; Y84.6 Urinary catheterization as the cause of abnormal reaction of the patient, or of later complication, without mention of misadventure at the time of the procedure; R53.83 Other fatigue; E87.6 Hypokalemia; R53.1 Weakness; M62.838 Other muscle spasm; J44.9 Chronic obstructive pulmonary disease, unspecified; K21.9 Gastro-esophageal reflux disease without esophagitis; Z79.82 Long term (current) use of aspirin; Z79.4 Long term (current) use of insulin; Z79.899 Other long term (current) drug therapy

== ENCOUNTER → 2024-03-17 | Outpatient (REF) ==
[~2024-03-17] MED LIST changes: +CEPH500C PO; +CETI-24 PO; +DULC10SU2 PR; +ECOT81TA5 PO; +GLUC3SPR; +MUPI2OI TOP; +OLME1TAB54 PO; +ZINC57OI TOP
[2024-03-17 11:30] LABS: HEMATOCRIT 41.6 % (42.0-52.0); HEMOGLOBIN 14.1 g/dl (13.5-17.5); MEAN CORPUSCULAR HEMOGLOBIN 30.7 pg (27.0-33.0); MEAN CORPUSCULAR HGB CONC 33.9 g/dl (32.0-36.5); MEAN CORPUSCULAR VOLUME 90.4 fl (80.0-96.0); PLATELET COUNT, AUTOMATED 317 10^3/uL (150-450); WHITE BLOOD COUNT 10.4 10^3/uL (4.0-10.0)
[2024-03-17 11:46] LABS: HEMOGLOBIN A1c 7.6 % (4.0-6.0)
[2024-03-17 12:09] LABS: BLOOD UREA NITROGEN 12 MG/DL (9-23); CALCIUM LEVEL 9.4 MG/DL (8.3-10.6); CARBON DIOXIDE LEVEL 25 MMOL/L (20-31); CHLORIDE LEVEL 101 MMOL/L (98-107); GLOMERULAR FILTRATION RATE > 60.0 (>35); GLUCOSE, FASTING 265 MG/DL (74-106); POTASSIUM SERUM 3.7 MMOL/L (3.5-5.1); SODIUM LEVEL 136 MMOL/L (136-145); THYROID STIMULATING HORMONE 0.299 uIU/ML (0.55-4.78); THYROXINE (T4) 9.5 UG/DL (4.5-10.9); TOTAL 25(OH) VITAMIN D 46.4 NG/ML (20.0-100.0)
== END ==
PROVIDERS: ATTEND Physician Assistant
DX: I10 Essential (primary) hypertension (principal)

== ENCOUNTER → 2024-03-20 | Outpatient (CLI) | payer MEDICARE, OTHER | LOC: M RAD 13:14 | PROVIDERS: ATTEND Internal Medicine | DX: K59.00 Constipation, unspecified (principal) ==

== ENCOUNTER → 2024-03-20 | Outpatient (REF) | PROVIDERS: ATTEND Internal Medicine | DX: K59.00 Constipation, unspecified (principal); Z53.8 Procedure and treatment not carried out for other reasons ==

== ENCOUNTER → 2024-03-24 | Outpatient (REF) ==
[2024-03-24 11:05] LABS: HEMOGLOBIN 13.2 g/dl (13.5-17.5); MEAN CORPUSCULAR HEMOGLOBIN 31.1 pg (27.0-33.0); MEAN CORPUSCULAR HGB CONC 33.8 g/dl (32.0-36.5); MEAN CORPUSCULAR VOLUME 91.8 fl (80.0-96.0); PLATELET COUNT, AUTOMATED 298 10^3/uL (150-450); RED BLOOD COUNT 4.25 10^6/uL (4.30-6.10); WHITE BLOOD COUNT 9.5 10^3/uL (4.0-10.0)
[2024-03-24 11:47] LABS: BLOOD UREA NITROGEN 16 MG/DL (9-23); CARBON DIOXIDE LEVEL 30 MMOL/L (20-31); CHLORIDE LEVEL 100 MMOL/L (98-107); CREATININE FOR GFR 0.53 MG/DL (0.70-1.30); GLOMERULAR FILTRATION RATE > 60.0 (>35); GLUCOSE, FASTING 298 MG/DL (74-106); POTASSIUM SERUM 3.7 MMOL/L (3.5-5.1); SODIUM LEVEL 134 MMOL/L (136-145)
== END ==
PROVIDERS: ATTEND Physician Assistant
DX: I10 Essential (primary) hypertension (principal)

== ENCOUNTER → 2024-03-28 | Outpatient (REF) | PROVIDERS: ATTEND Internal Medicine | DX: K56.7 Ileus, unspecified (principal) ==

== ENCOUNTER → 2024-04-07 | Outpatient (REF) | PROVIDERS: ATTEND Internal Medicine | DX: I10 Essential (primary) hypertension (principal); Z53.8 Procedure and treatment not carried out for other reasons ==

== ENCOUNTER → 2024-04-09 | Outpatient (REF) ==
[2024-04-09 11:50] LABS: HEMATOCRIT 44.3 % (42.0-52.0); HEMOGLOBIN 14.9 g/dl (13.5-17.5); MEAN CORPUSCULAR HEMOGLOBIN 31.2 pg (27.0-33.0); MEAN CORPUSCULAR HGB CONC 33.6 g/dl (32.0-36.5); MEAN CORPUSCULAR VOLUME 92.9 fl (80.0-96.0); PLATELET COUNT, AUTOMATED 218 10^3/uL (150-450); RED BLOOD COUNT 4.77 10^6/uL (4.30-6.10); WHITE BLOOD COUNT 10.6 10^3/uL (4.0-10.0)
[2024-04-09 12:26] LABS: BLOOD UREA NITROGEN 16 MG/DL (9-23); CALCIUM LEVEL 9.8 MG/DL (8.3-10.6); CARBON DIOXIDE LEVEL 29 MMOL/L (20-31); CHLORIDE LEVEL 102 MMOL/L (98-107); CREATININE FOR GFR 0.57 MG/DL (0.70-1.30); GLOMERULAR FILTRATION RATE > 60.0 (>35); GLUCOSE, FASTING 201 MG/DL (74-106); POTASSIUM SERUM 3.9 MMOL/L (3.5-5.1); SODIUM LEVEL 140 MMOL/L (136-145)
== END ==
PROVIDERS: ATTEND Internal Medicine
DX: I50.9 Heart failure, unspecified (principal)

== ENCOUNTER → 2024-05-08 | Outpatient (CLI) | payer MEDICARE, OTHER ==
[2024-05-08 18:32] LABS: BASO # 0.1 10^3/uL (0.0-0.2); BASO % 0.6 % (0.0-1.0); EOS # 0.1 10^3/uL (0.0-0.5); EOS % 1.2 % (0.0-3.0); HEMATOCRIT 42.6 % (42.0-52.0); HEMOGLOBIN 14.4 g/dl (13.5-17.5); LYMPH % 28.6 % (24.0-44.0); MEAN CORPUSCULAR HEMOGLOBIN 31.3 pg (27.0-33.0); MEAN CORPUSCULAR HGB CONC 33.8 g/dl (32.0-36.5); MEAN CORPUSCULAR VOLUME 92.6 fl (80.0-96.0); MONO % 9.3 % (2.0-8.0); NEUTROPHILS # 6.3 10^3/uL (1.5-8.5); NEUTROPHILS % 60.1 % (36.0-66.0); PLATELET COUNT, AUTOMATED 254 10^3/uL (150-450); WHITE BLOOD COUNT 10.5 10^3/uL (4.0-10.0)
[2024-05-08 19:03] LABS: FREE T4 1.22 NG/DL (0.89-1.76); TOTAL 25(OH) VITAMIN D 54.7 NG/ML (20.0-100.0)
[2024-05-08 19:04] LABS: ALBUMIN 3.2 G/DL (3.2-5.2); ALKALINE PHOSPHATASE 141 U/L (46-116); ALT/SGPT 16 U/L (7.0-40); AST/SGOT 13 U/L (<34); BILIRUBIN,TOTAL 0.3 MG/DL (0.3-1.2); BLOOD UREA NITROGEN 22 MG/DL (9-23); CALCIUM LEVEL 9.7 MG/DL (8.3-10.6); CARBON DIOXIDE LEVEL 23 MMOL/L (20-31); CHLORIDE LEVEL 104 MMOL/L (98-107); CHOLESTEROL LEVEL 121 MG/DL (<200); CHOLESTEROL RISK RATIO 3.43 (<5); CREATININE FOR GFR 0.68 MG/DL (0.70-1.30); GLOMERULAR FILTRATION RATE > 60.0 (>35); GLUCOSE, FASTING 172 MG/DL (74-106); HDL CHOLESTEROL 35.2 MG/DL (>40); LDL CHOLESTEROL 44.4 MG/DL (<100); NON-HDL-C 85.8 MG/DL; POTASSIUM SERUM 3.9 MMOL/L (3.5-5.1); SODIUM LEVEL 139 MMOL/L (136-145); THYROID STIMULATING HORMONE 0.145 uIU/ML (0.55-4.78); TOTAL PROTEIN 6.6 G/DL (5.7-8.2); TRIGLYCERIDES LEVEL 207 MG/DL (<150)
[2024-05-08 19:08] LABS: TOTAL T3 100.3 NG/DL (60.0-181.0)
== END ==
LOC: M PLALAB 14:15
PROVIDERS: ATTEND Internal Medicine Endocrinology, Diabetes & Metabolism
DX: E04.2 Nontoxic multinodular goiter (principal); E11.3393 Type 2 diabetes mellitus with moderate nonproliferative diabetic retinopathy without macular edema, bilateral; Z79.4 Long term (current) use of insulin; E55.9 Vitamin D deficiency, unspecified

== ENCOUNTER → 2024-05-08 | Outpatient (CLI) | payer MEDICARE, OTHER ==
[2024-05-08 18:32] LABS: BASO # 0.1 10^3/uL (0.0-0.2); BASO % 0.7 % (0.0-1.0); EOS # 0.1 10^3/uL (0.0-0.5); EOS % 1.3 % (0.0-3.0); HEMATOCRIT 42.7 % (42.0-52.0); HEMOGLOBIN 14.2 g/dl (13.5-17.5); LYMPH % 28.7 % (24.0-44.0); MEAN CORPUSCULAR HEMOGLOBIN 30.3 pg (27.0-33.0); MEAN CORPUSCULAR HGB CONC 33.3 g/dl (32.0-36.5); MEAN CORPUSCULAR VOLUME 91.2 fl (80.0-96.0); MONO # 0.9 10^3/uL (0.0-0.8); NEUTROPHILS # 6.2 10^3/uL (1.5-8.5); NEUTROPHILS % 60.1 % (36.0-66.0); PLATELET COUNT, AUTOMATED 250 10^3/uL (150-450); RED BLOOD COUNT 4.68 10^6/uL (4.30-6.10); WHITE BLOOD COUNT 10.4 10^3/uL (4.0-10.0)
[2024-05-08 19:05] LABS: ALBUMIN 3.2 G/DL (3.2-5.2); ALKALINE PHOSPHATASE 140 U/L (46-116); ALT/SGPT 17 U/L (7.0-40); AST/SGOT 18 U/L (<34); BILIRUBIN,TOTAL 0.2 MG/DL (0.3-1.2); BLOOD UREA NITROGEN 22 MG/DL (9-23); CALCIUM LEVEL 9.5 MG/DL (8.3-10.6); CARBON DIOXIDE LEVEL 21 MMOL/L (20-31); CHLORIDE LEVEL 104 MMOL/L (98-107); CREATININE FOR GFR 0.67 MG/DL (0.70-1.30); GLOMERULAR FILTRATION RATE > 60.0 (>35); GLUCOSE, FASTING 173 MG/DL (74-106); SODIUM LEVEL 139 MMOL/L (136-145); TOTAL PROTEIN 6.6 G/DL (5.7-8.2)
== END ==
LOC: M PLALAB 14:12
PROVIDERS: ATTEND Internal Medicine
DX: L89.302 Pressure ulcer of unspecified buttock, stage 2 (principal)

== ENCOUNTER → 2024-07-08 | Outpatient (CLI) | payer MEDICARE, OTHER | LOC: M PLALAB 14:33 | PROVIDERS: ATTEND Psychiatry & Neurology Neurology | DX: R51.9 Headache, unspecified (principal) ==

== ENCOUNTER → 2024-07-08 | Outpatient (CLI) | payer MEDICARE, OTHER ==
[2024-07-08 17:30] LABS: ALBUMIN 3.4 G/DL (3.2-5.2); ALKALINE PHOSPHATASE 116 U/L (40-129); ALT/SGPT 21 U/L (7.0-40); AST/SGOT 12 U/L (<34); BILIRUBIN,TOTAL 0.3 MG/DL (0.3-1.2); BLOOD UREA NITROGEN 23 MG/DL (9-23); CALCIUM LEVEL 9.9 MG/DL (8.3-10.6); CARBON DIOXIDE LEVEL 31 MMOL/L (20-31); CHLORIDE LEVEL 103 MMOL/L (98-107); CHOLESTEROL LEVEL 138 MG/DL (<200); CHOLESTEROL RISK RATIO 3.23 (<5); CREATININE FOR GFR 0.71 MG/DL (0.70-1.30); GLOMERULAR FILTRATION RATE > 60.0 (>35); GLUCOSE, FASTING 90 MG/DL (74-106); HDL CHOLESTEROL 42.6 MG/DL (>40); LDL CHOLESTEROL 61.2 MG/DL (<100); NON-HDL-C 95.4 MG/DL; SODIUM LEVEL 143 MMOL/L (136-145); TRIGLYCERIDES LEVEL 171 MG/DL (<150)
[2024-07-08 17:59] LABS: HEMOGLOBIN A1c 7.2 % (4.0-6.0)
== END ==
LOC: M PLALAB 14:36
PROVIDERS: ATTEND Internal Medicine
DX: E78.5 Hyperlipidemia, unspecified (principal); I10 Essential (primary) hypertension; E11.40 Type 2 diabetes mellitus with diabetic neuropathy, unspecified

== ENCOUNTER 2024-09-15 13:10 | Inpatient (IN) | payer MEDICARE, OTHER ==
[~2024-09-15] VITALS: Ht 182.9 cm; Wt 88.7 kg
[2024-09-15 14:04] LABS: BASO # 0.1 10^3/uL (0.0-0.2); BASO % 0.6 % (0.0-1.0); EOS # 0.1 10^3/uL (0.0-0.5); EOS % 0.8 % (0.0-3.0); HEMATOCRIT 41.1 % (42.0-52.0); HEMOGLOBIN 14.1 g/dl (13.5-17.5); LYMPH # 1.9 10^3/uL (1.5-5.0); LYMPH % 13.5 % (24.0-44.0); MEAN CORPUSCULAR HEMOGLOBIN 31.7 pg (27.0-33.0); MEAN CORPUSCULAR HGB CONC 34.3 g/dl (32.0-36.5); MEAN CORPUSCULAR VOLUME 92.4 fl (80.0-96.0); MONO # 1.1 10^3/uL (0.0-0.8); NEUTROPHILS # 10.5 10^3/uL (1.5-8.5); NEUTROPHILS % 76.9 % (36.0-66.0); PLATELET COUNT, AUTOMATED 235 10^3/uL (150-450); RED BLOOD COUNT 4.45 10^6/uL (4.30-6.10); WHITE BLOOD COUNT 13.7 10^3/uL (4.0-10.0)
[2024-09-15 14:38] LABS: KETONE, URINE AUTO RFX NEGATIVE (NEGATIVE); RBC, URINE AUTO RFX 0 /HPF (0-3); SQUAM EPITHELIAL CELL UR AURFX 0 /HPF (0-6)
[2024-09-15 14:50] LABS: ALBUMIN 3.1 G/DL (3.2-5.2); ALKALINE PHOSPHATASE 116 U/L (40-129); ALT/SGPT 18 U/L (7.0-40); AST/SGOT 14 U/L (<34); BILIRUBIN,DIRECT < 0.1 MG/DL (<0.4); BILIRUBIN,TOTAL 0.3 MG/DL (0.3-1.2); BLOOD UREA NITROGEN 25 MG/DL (9-23); CALCIUM LEVEL 8.7 MG/DL (8.3-10.6); CARBON DIOXIDE LEVEL 24 MMOL/L (20-31); CHLORIDE LEVEL 104 MMOL/L (98-107); CREATININE FOR GFR 0.79 MG/DL (0.70-1.30); GLOMERULAR FILTRATION RATE > 60.0 (>35); GLUCOSE, FASTING 210 MG/DL (74-106); MAGNESIUM LEVEL 1.6 MG/DL (1.8-2.4); POTASSIUM SERUM 3.5 MMOL/L (3.5-5.1); SODIUM LEVEL 144 MMOL/L (136-145); THYROID STIMULATING HORMONE 0.873 uIU/ML (0.55-4.78); TOTAL PROTEIN 6.5 G/DL (5.7-8.2)
[2024-09-15 14:57] LABS: LEUKOCYTE ESTERASE UR AUTO RFX 3+ (NEGATIVE); NITRITE, URINE AUTO RFX POSITIVE (NEGATIVE); WBC, URINE AUTO RFX 159 /HPF (0-3)
[2024-09-15] MEDS: cefTRIAXone SOD 1 GM in DEXTROSE 5% (D5W) ADV/MINI-BAG 50 ML IV ONE (15:37)
[2024-09-15] MEDS: NS (Normal Saline) 0.9% 1,000 ML IV SCH (15:37)
[2024-09-15] MEDS ORDERED: LORA-622 PO (16:01)
[2024-09-15] MEDS ORDERED: AZEL1SPR3 (16:01)
[2024-09-15] MEDS ORDERED: FLUT12HF3 INH (16:01)
[2024-09-15] MEDS ORDERED: IPRA0.00 NEB (16:05)
[2024-09-15] MEDS ORDERED: ZINC57OI TP (16:05)
[2024-09-15] MEDS ORDERED: HOME MED LIST COMPLETE! XX SCH (16:10)
[2024-09-15] MEDS ORDERED: MOM 30ML SUSPENSION UDC PO PRN (16:40)
[2024-09-15] MEDS ORDERED: MAALOX 30 ML SUSP *UDC PO PRN (16:40)
[2024-09-15] MEDS ORDERED: GLUCAGON INJ 1MG VIAL SC PRN (17:35)
[2024-09-15] MEDS ORDERED: GLUCOSE 4 GM CHEW PO PRN (17:35)
[2024-09-15] MEDS ORDERED: KETOCONAZOLE 2% CREAM TOP PRN (17:35)
[2024-09-15] MEDS ORDERED: DEXTROSE 50% 50ML SYRINGE IV PRN (17:35)
[2024-09-15] MEDS ORDERED: ALBUTEROL 90 MCG/ACT 8GM HFA INHALER INH PRN (17:35)
[2024-09-15] MEDS: INSULIN LISPRO (NovoLOG) PER UNIT SC SCH ×2 (18:14→20:57)
[2024-09-15 18:28] LABS: C REACTIVE PROTEIN QUANTITATIV 1.32 MG/DL (<1.0)
[2024-09-15 18:36] LABS: PROCALCITONIN 0.05 ng/ml
[2024-09-15] MEDS: LR 1,000 ML IV SCH (19:38)
[2024-09-15] MEDS: ADVAIR HFA 230/21MCG INHALER INH SCH (20:00)
[2024-09-15 21:00] VITALS: BP 130/60; TEMP 98.3; O2SAT 96
[2024-09-15] MEDS: LORATADINE 10 MG TAB PO SCH (21:04)
[2024-09-15] MEDS: FINASTERIDE 5MG TAB PO SCH (21:04)
[2024-09-15] MEDS: METOPROLOL SUCC (TopROL XL) 50MG **XL** TAB PO SCH (21:04)
[2024-09-15] MEDS: MONTELUKAST 10 MG TAB PO SCH (21:04)
[2024-09-15] MEDS ORDERED: ISOVUE-370 76% 100ML VIAL As Ordered ONE (21:44)
[2024-09-15 22:46] LABS: MAGNESIUM LEVEL 1.5 MG/DL (1.8-2.4); POTASSIUM SERUM 3.6 MMOL/L (3.5-5.1)
[2024-09-15] MEDS: PRIMIDONE 250 MG TAB PO SCH (23:05)
[2024-09-15] MEDS: LEVEMIR (INSULIN DETEMIR) 1 UNITS/0.01ML SC SCH (23:05)
[2024-09-15] MEDS: AZELASTINE 137MCG NASAL SPY 30 ML (ASTELIN) SCH (23:05)
[2024-09-16] VITALS (7 sets, daily range): BP systolic 121–150; BP diastolic 60–71; TEMP 97–97.9; O2SAT 95–99
[2024-09-16 07:53] LABS: BASO # 0.1 10^3/uL (0.0-0.2); BASO % 0.5 % (0.0-1.0); EOS # 0.2 10^3/uL (0.0-0.5); EOS % 1.9 % (0.0-3.0); HEMATOCRIT 38.5 % (42.0-52.0); HEMOGLOBIN 13.3 g/dl (13.5-17.5); LYMPH # 3.2 10^3/uL (1.5-5.0); LYMPH % 31.8 % (24.0-44.0); MEAN CORPUSCULAR HGB CONC 34.5 g/dl (32.0-36.5); MEAN CORPUSCULAR VOLUME 92.8 fl (80.0-96.0); MONO # 1.3 10^3/uL (0.0-0.8); NEUTROPHILS # 5.3 10^3/uL (1.5-8.5); NEUTROPHILS % 52.6 % (36.0-66.0); PLATELET COUNT, AUTOMATED 206 10^3/uL (150-450); RED BLOOD COUNT 4.15 10^6/uL (4.30-6.10); WHITE BLOOD COUNT 10.1 10^3/uL (4.0-10.0)
[2024-09-16 08:20] LABS: ALKALINE PHOSPHATASE 109 U/L (40-129); ALT/SGPT 18 U/L (7.0-40); AST/SGOT 15 U/L (<34); BILIRUBIN,TOTAL 0.4 MG/DL (0.3-1.2); BLOOD UREA NITROGEN 19 MG/DL (9-23); CALCIUM LEVEL 9.2 MG/DL (8.3-10.6); CARBON DIOXIDE LEVEL 32 MMOL/L (20-31); CHLORIDE LEVEL 101 MMOL/L (98-107); CREATININE FOR GFR 0.67 MG/DL (0.70-1.30); GLOMERULAR FILTRATION RATE > 60.0 (>35); GLUCOSE, FASTING 124 MG/DL (74-106); MAGNESIUM LEVEL 1.6 MG/DL (1.8-2.4); POTASSIUM SERUM 3.6 MMOL/L (3.5-5.1); SODIUM LEVEL 142 MMOL/L (136-145); TOTAL PROTEIN 6.3 G/DL (5.7-8.2)
[2024-09-16] MEDS: ASPIRIN 81MG ENTERIC TABLET PO SCH (08:42)
[2024-09-16] MEDS: INSULIN LISPRO (NovoLOG) PER UNIT SC SCH (08:43)
[2024-09-16] MEDS: ATORVASTATIN 10 MG TAB PO SCH (08:43)
[2024-09-16] MEDS: ENOXAPARIN 40MG/0.4ML SYRINGE (J1650 PER 10MG) SC SCH (08:43)
[2024-09-16] MEDS ORDERED: LEVEMIR (INSULIN DETEMIR) 1 UNITS/0.01ML SC SCH (09:00)
[2024-09-16] MEDS: cefTRIAXone SOD 1 GM in DEXTROSE 5% (D5W) ADV/MINI-BAG 50 ML IV SCH (14:04)
[2024-09-16] MEDS: ACETAMINOPHEN 325 MG TAB PO PRN (14:17)
[2024-09-16] MEDS: LIDOCAINE 5% (LIDODERM) PATCH TD SCH (14:44)
[2024-09-16] MEDS: MAG SULF 1GM/100ML (MAG RUN) 1 GM in IV 1 EA IV ONE (14:44)
[2024-09-16] MEDS: FIBER-CON 625 MG TAB PO SCH (17:22)
[2024-09-16] MEDS: SENOKOT S TAB PO SCH (20:07)
[2024-09-17] VITALS: BP 143/68; TEMP 96.6; O2SAT 99
[2024-09-17 04:00] VITALS: BP 154/74; TEMP 96.9; O2SAT 99
[2024-09-17 06:35] LABS: BASO % 0.4 % (0.0-1.0); EOS # 0.2 10^3/uL (0.0-0.5); EOS % 2.6 % (0.0-3.0); LYMPH # 2.3 10^3/uL (1.5-5.0); LYMPH % 31.3 % (24.0-44.0); MEAN CORPUSCULAR HEMOGLOBIN 31.9 pg (27.0-33.0); MEAN CORPUSCULAR HGB CONC 35.1 g/dl (32.0-36.5); MEAN CORPUSCULAR VOLUME 90.9 fl (80.0-96.0); MONO # 0.9 10^3/uL (0.0-0.8); MONO % 12.6 % (2.0-8.0); NEUTROPHILS # 3.9 10^3/uL (1.5-8.5); NEUTROPHILS % 53.1 % (36.0-66.0); PLATELET COUNT, AUTOMATED 192 10^3/uL (150-450); RED BLOOD COUNT 4.07 10^6/uL (4.30-6.10); WHITE BLOOD COUNT 7.4 10^3/uL (4.0-10.0)
[2024-09-17 07:07] LABS: ALBUMIN 2.8 G/DL (3.2-5.2); ALKALINE PHOSPHATASE 100 U/L (40-129); ALT/SGPT 17 U/L (7.0-40); AST/SGOT 13 U/L (<34); BILIRUBIN,TOTAL 0.4 MG/DL (0.3-1.2); BLOOD UREA NITROGEN 17 MG/DL (9-23); CARBON DIOXIDE LEVEL 32 MMOL/L (20-31); CHLORIDE LEVEL 104 MMOL/L (98-107); CREATININE FOR GFR 0.66 MG/DL (0.70-1.30); GLOMERULAR FILTRATION RATE > 60.0 (>35); GLUCOSE, FASTING 157 MG/DL (74-106); MAGNESIUM LEVEL 1.7 MG/DL (1.8-2.4); POTASSIUM SERUM 3.6 MMOL/L (3.5-5.1); SODIUM LEVEL 142 MMOL/L (136-145); TOTAL PROTEIN 5.9 G/DL (5.7-8.2)
[2024-09-17 08:00] VITALS: BP 128/70; TEMP 97.7; O2SAT 100
[2024-09-17] MEDS: MAGNESIUM OXIDE 400MG TAB (MAG-OX) PO SCH (09:06)
[2024-09-17] MEDS: MAG SULF 1GM/100ML (MAG RUN) 1 GM in IV 1 EA IV ONE (09:07)
[2024-09-17 12:00] VITALS: BP 143/70; TEMP 97.8; O2SAT 100
[2024-09-17 16:00] VITALS: BP 131/71; TEMP 97.8; O2SAT 100
[2024-09-17 20:00] VITALS: BP 126/80; TEMP 98.1; O2SAT 95
[2024-09-18] VITALS: BP 149/68; TEMP 98; O2SAT 97
[2024-09-18 04:00] VITALS: BP 149/77; TEMP 98.2; O2SAT 99
[2024-09-18 06:29] LABS: BASO % 0.4 % (0.0-1.0); EOS # 0.2 10^3/uL (0.0-0.5); HEMATOCRIT 37.1 % (42.0-52.0); LYMPH # 2.4 10^3/uL (1.5-5.0); LYMPH % 33.6 % (24.0-44.0); MEAN CORPUSCULAR HEMOGLOBIN 32.2 pg (27.0-33.0); MEAN CORPUSCULAR VOLUME 91.8 fl (80.0-96.0); MONO # 0.9 10^3/uL (0.0-0.8); MONO % 12.4 % (2.0-8.0); NEUTROPHILS # 3.5 10^3/uL (1.5-8.5); NEUTROPHILS % 50.5 % (36.0-66.0); PLATELET COUNT, AUTOMATED 193 10^3/uL (150-450); RED BLOOD COUNT 4.04 10^6/uL (4.30-6.10)
[2024-09-18 07:13] LABS: ALBUMIN 2.8 G/DL (3.2-5.2); ALKALINE PHOSPHATASE 108 U/L (40-129); ALT/SGPT 18 U/L (7.0-40); AST/SGOT 14 U/L (<34); BILIRUBIN,TOTAL 0.3 MG/DL (0.3-1.2); BLOOD UREA NITROGEN 14 MG/DL (9-23); CALCIUM LEVEL 8.7 MG/DL (8.3-10.6); CARBON DIOXIDE LEVEL 32 MMOL/L (20-31); CHLORIDE LEVEL 100 MMOL/L (98-107); CREATININE FOR GFR 0.61 MG/DL (0.70-1.30); GLOMERULAR FILTRATION RATE > 60.0 (>35); GLUCOSE, FASTING 187 MG/DL (74-106); MAGNESIUM LEVEL 1.9 MG/DL (1.8-2.4); POTASSIUM SERUM 3.3 MMOL/L (3.5-5.1); SODIUM LEVEL 141 MMOL/L (136-145)
[2024-09-18 08:00] VITALS: BP 140/66; TEMP 98.2; O2SAT 97
[2024-09-18] MEDS: POTASSIUM CHLORIDE 10MEQ SR TABLET PO ONE (10:08)
[2024-09-18 12:00] VITALS: BP 140/78; TEMP 98.1; O2SAT 95
[2024-09-18] MEDS: CEFDINIR 300 MG CAP (OMNICEF) PO SCH (12:06)
[2024-09-18 16:00] VITALS: BP 126/68; TEMP 98.4; O2SAT 98
[2024-09-18 20:00] VITALS: BP 127/60; TEMP 97.9; O2SAT 95
[2024-09-19] VITALS (7 sets, daily range): BP systolic 129–152; BP diastolic 66–87; TEMP 97.1–98.1; O2SAT 91–99
[2024-09-19] MEDS: MIRALAX *UNIT DOSE* 17GM PACKET PO SCH (08:23)
[2024-09-20 04:20] VITALS: BP 136/64; TEMP 97.3; O2SAT 99
[2024-09-20 06:56] LABS: BASO % 0.4 % (0.0-1.0); EOS # 0.1 10^3/uL (0.0-0.5); EOS % 1.6 % (0.0-3.0); HEMATOCRIT 36.4 % (42.0-52.0); HEMOGLOBIN 12.6 g/dl (13.5-17.5); LYMPH # 2.2 10^3/uL (1.5-5.0); LYMPH % 30.7 % (24.0-44.0); MEAN CORPUSCULAR HEMOGLOBIN 32.1 pg (27.0-33.0); MEAN CORPUSCULAR HGB CONC 34.6 g/dl (32.0-36.5); MEAN CORPUSCULAR VOLUME 92.9 fl (80.0-96.0); MONO # 0.9 10^3/uL (0.0-0.8); MONO % 12.4 % (2.0-8.0); NEUTROPHILS # 3.9 10^3/uL (1.5-8.5); NEUTROPHILS % 54.6 % (36.0-66.0); PLATELET COUNT, AUTOMATED 222 10^3/uL (150-450); RED BLOOD COUNT 3.92 10^6/uL (4.30-6.10); WHITE BLOOD COUNT 7.1 10^3/uL (4.0-10.0)
[2024-09-20 07:22] LABS: BLOOD UREA NITROGEN 13 MG/DL (9-23); CALCIUM LEVEL 8.9 MG/DL (8.3-10.6); CARBON DIOXIDE LEVEL 31 MMOL/L (20-31); CHLORIDE LEVEL 103 MMOL/L (98-107); CREATININE FOR GFR 0.68 MG/DL (0.70-1.30); GLOMERULAR FILTRATION RATE > 60.0 (>35); GLUCOSE, FASTING 224 MG/DL (74-106); POTASSIUM SERUM 4.1 MMOL/L (3.5-5.1); SODIUM LEVEL 142 MMOL/L (136-145)
[2024-09-20 08:00] VITALS: BP 128/62; TEMP 98.3; O2SAT 98
[2024-09-20] MEDS: SITagliptin 50 MG TAB (JANUVIA) PO SCH (11:51)
[2024-09-20 12:00] VITALS: BP 155/73; TEMP 97.7; O2SAT 97
[2024-09-20 20:00] VITALS: BP 140/68; TEMP 98.1; O2SAT 96
[2024-09-20] MEDS: LEVEMIR (INSULIN DETEMIR) 1 UNITS/0.01ML SC SCH (20:41)
[2024-09-20] MEDS ORDERED: MIRALAX *UNIT DOSE* 17GM PACKET PO PRN (21:00)
[2024-09-20 23:47] VITALS: BP 144/67; TEMP 98.3; O2SAT 95
[2024-09-21 04:36] VITALS: BP 150/67; TEMP 98.3; O2SAT 98
[2024-09-21 08:04] LABS: BASO % 0.6 % (0.0-1.0); EOS # 0.1 10^3/uL (0.0-0.5); EOS % 1.8 % (0.0-3.0); HEMATOCRIT 38.8 % (42.0-52.0); HEMOGLOBIN 12.9 g/dl (13.5-17.5); LYMPH # 2.1 10^3/uL (1.5-5.0); LYMPH % 30.7 % (24.0-44.0); MEAN CORPUSCULAR HEMOGLOBIN 30.9 pg (27.0-33.0); MEAN CORPUSCULAR HGB CONC 33.2 g/dl (32.0-36.5); MONO # 0.8 10^3/uL (0.0-0.8); MONO % 11.7 % (2.0-8.0); NEUTROPHILS # 3.8 10^3/uL (1.5-8.5); NEUTROPHILS % 55.1 % (36.0-66.0); PLATELET COUNT, AUTOMATED 231 10^3/uL (150-450); RED BLOOD COUNT 4.17 10^6/uL (4.30-6.10); WHITE BLOOD COUNT 6.9 10^3/uL (4.0-10.0)
[2024-09-21] MEDS: MAGNESIUM OXIDE 400MG TAB (MAG-OX) PO SCH (08:17)
[2024-09-21] MEDS: LEVEMIR (INSULIN DETEMIR) 1 UNITS/0.01ML SC SCH ×2 (08:18→20:24)
[2024-09-21 08:37] LABS: BLOOD UREA NITROGEN 14 MG/DL (9-23); CALCIUM LEVEL 8.6 MG/DL (8.3-10.6); CARBON DIOXIDE LEVEL 30 MMOL/L (20-31); CHLORIDE LEVEL 102 MMOL/L (98-107); CREATININE FOR GFR 0.69 MG/DL (0.70-1.30); GLOMERULAR FILTRATION RATE > 60.0 (>35); GLUCOSE, FASTING 239 MG/DL (74-106); POTASSIUM SERUM 3.8 MMOL/L (3.5-5.1); SODIUM LEVEL 137 MMOL/L (136-145)
[2024-09-21 11:29] VITALS: BP 129/96; TEMP 97.1; O2SAT 98
[2024-09-21 20:13] VITALS: BP 139/63; TEMP 98.4; O2SAT 97
[2024-09-22 05:04] VITALS: BP 145/61; TEMP 97; O2SAT 98
[2024-09-22 07:00] LABS: BASO % 0.5 % (0.0-1.0); EOS # 0.1 10^3/uL (0.0-0.5); EOS % 1.5 % (0.0-3.0); HEMATOCRIT 36.8 % (42.0-52.0); HEMOGLOBIN 12.7 g/dl (13.5-17.5); LYMPH # 2.5 10^3/uL (1.5-5.0); LYMPH % 33.5 % (24.0-44.0); MEAN CORPUSCULAR HEMOGLOBIN 31.8 pg (27.0-33.0); MEAN CORPUSCULAR HGB CONC 34.5 g/dl (32.0-36.5); MEAN CORPUSCULAR VOLUME 92.2 fl (80.0-96.0); MONO # 0.9 10^3/uL (0.0-0.8); NEUTROPHILS # 3.9 10^3/uL (1.5-8.5); NEUTROPHILS % 52.4 % (36.0-66.0); PLATELET COUNT, AUTOMATED 262 10^3/uL (150-450); RED BLOOD COUNT 3.99 10^6/uL (4.30-6.10); WHITE BLOOD COUNT 7.5 10^3/uL (4.0-10.0)
[2024-09-22] MEDS: INSULIN LISPRO (NovoLOG) PER UNIT SC SCH (07:30)
[2024-09-22 07:31] LABS: BLOOD UREA NITROGEN 16 MG/DL (9-23); CALCIUM LEVEL 9.1 MG/DL (8.3-10.6); CARBON DIOXIDE LEVEL 30 MMOL/L (20-31); CHLORIDE LEVEL 102 MMOL/L (98-107); CREATININE FOR GFR 0.76 MG/DL (0.70-1.30); GLOMERULAR FILTRATION RATE > 60.0 (>35); GLUCOSE, FASTING 150 MG/DL (74-106); POTASSIUM SERUM 3.9 MMOL/L (3.5-5.1); SODIUM LEVEL 140 MMOL/L (136-145)
[2024-09-22 08:00] VITALS: BP 143/61; TEMP 98.6; O2SAT 97
[2024-09-22 12:00] VITALS: BP 150/67; TEMP 99.1; O2SAT 96
[2024-09-22 16:00] VITALS: BP 115/56; TEMP 97.1; O2SAT 95
[2024-09-22] MEDS ORDERED: ACET32TAB PO (16:44)
[2024-09-22] MEDS ORDERED: MIRA33506 PO (16:44)
[2024-09-22] MEDS ORDERED: SENN-52 PO (16:44)
[2024-09-22] MEDS ORDERED: LIDO5TD TD (16:44)
[2024-09-22] MEDS ORDERED: FIBE62TA PO (16:44)
[2024-09-22 20:33] VITALS: BP 148/67; TEMP 98.3; O2SAT 97
[2024-09-22 20:45] VITALS: BP 148/67
== END 2024-09-22 20:51 | DRG 698 ==
LOC: M ED 13:10 → EDBD 13:10 → M ED INP 13:11 → M MS4PR 19:50 → OBSVTOIN 09-18 16:52
PROVIDERS: ADMIT Student in an Organized Health Care Education/Training Program; ATTEND Internal Medicine Nephrology
DX: T83.511A Infection and inflammatory reaction due to indwelling urethral catheter, initial encounter (principal); A41.9 Sepsis, unspecified organism; M62.82 Rhabdomyolysis; Y84.6 Urinary catheterization as the cause of abnormal reaction of the patient, or of later complication, without mention of misadventure at the time of the procedure; E11.42 Type 2 diabetes mellitus with diabetic polyneuropathy; M54.50 Low back pain, unspecified; G89.29 Other chronic pain; G25.0 Essential tremor; E78.5 Hyperlipidemia, unspecified; J45.909 Unspecified asthma, uncomplicated; I10 Essential (primary) hypertension; N40.1 Benign prostatic hyperplasia with lower urinary tract symptoms; R33.9 Retention of urine, unspecified; E83.42 Hypomagnesemia; K59.00 Constipation, unspecified; M17.12 Unilateral primary osteoarthritis, left knee; B96.1 Klebsiella pneumoniae [K. pneumoniae] as the cause of diseases classified elsewhere; M25.562 Pain in left knee; M79.89 Other specified soft tissue disorders; K52.9 Noninfective gastroenteritis and colitis, unspecified; Z79.4 Long term (current) use of insulin; Z79.82 Long term (current) use of aspirin; Z79.899 Other long term (current) drug therapy; Z96.651 Presence of right artificial knee joint

== ENCOUNTER 2024-09-22 16:18 | Inpatient (IN) | payer MEDICARE, OTHER ==
[~2024-09-22] VITALS: Ht 182.9 cm; Wt 88.7 kg
[~2024-09-22 16:18] MED LIST changes: +AZEL1SPR3; +FLUT12HF3 INH; +IPRA0.00 NEB; +LORA-622 PO; +ZINC57OI TP
[2024-09-22] MEDS ORDERED: BISACODYL 10MG SUPP PR PRN (16:25)
[2024-09-22] MEDS ORDERED: BISACODYL 5MG TAB PO PRN (16:25)
[2024-09-22] MEDS ORDERED: FLEET ENEMA PR PRN (16:25)
[2024-09-22] MEDS ORDERED: MAALOX 30 ML SUSP *UDC PO PRN (16:25)
[2024-09-22] MEDS ORDERED: MIRALAX *UNIT DOSE* 17GM PACKET PO PRN (16:25)
[2024-09-22] MEDS ORDERED: SIMETHICONE 80MG CHEW TAB PO PRN (16:25)
[2024-09-22] MEDS ORDERED: DEXTROSE 50% 50ML SYRINGE IV PRN (16:35)
[2024-09-22] MEDS ORDERED: GLUCAGON INJ 1MG VIAL SC PRN (16:35)
[2024-09-22] MEDS ORDERED: GLUCOSE 4 GM CHEW PO PRN (16:35)
[2024-09-22] MEDS ORDERED: ACET32TAB PO (16:44)
[2024-09-22] MEDS ORDERED: FIBE62TA PO (16:44)
[2024-09-22] MEDS ORDERED: LIDO5TD TD (16:44)
[2024-09-22] MEDS ORDERED: SENN-52 PO (16:44)
[2024-09-22] MEDS ORDERED: MIRA33506 PO (16:44)
[2024-09-22] MEDS ORDERED: KETOCONAZOLE 2% CREAM TOP PRN (20:40)
[2024-09-22] MEDS ORDERED: tiZANidine 4 MG TAB PO PRN (20:40)
[2024-09-22] MEDS ORDERED: IPRATROPIUM 0.5MG/ALBUTEROL 2.5MG INH SOL UD 3ML (DUONEB) NEB PRN (20:40)
[2024-09-22 21:00] VITALS: BP 148/67; TEMP 98.3; O2SAT 97
[2024-09-22] MEDS ORDERED: DOCUSATE SODIUM 100MG CAPSULE PO SCH (21:00)
[2024-09-22] MEDS ORDERED: CEFDINIR 300 MG CAP (OMNICEF) PO SCH (21:00)
[2024-09-22] MEDS ORDERED: PILL CUTTER 1 EACH XX PRN (21:20)
[2024-09-22] MEDS: AZELASTINE 137MCG NASAL SPY 30 ML (ASTELIN) SCH (22:22)
[2024-09-23 04:13] VITALS: BP 144/68; TEMP 97.3; O2SAT 97
[2024-09-23 07:20] LABS: ALBUMIN 2.9 G/DL (3.2-5.2); ALKALINE PHOSPHATASE 122 U/L (40-129); ALT/SGPT 35 U/L (7.0-40); AST/SGOT 23 U/L (<34); BILIRUBIN,TOTAL 0.3 MG/DL (0.3-1.2); BLOOD UREA NITROGEN 16 MG/DL (9-23); CALCIUM LEVEL 9.3 MG/DL (8.3-10.6); CARBON DIOXIDE LEVEL 32 MMOL/L (20-31); CHLORIDE LEVEL 101 MMOL/L (98-107); CREATININE FOR GFR 0.68 MG/DL (0.70-1.30); GLOMERULAR FILTRATION RATE > 60.0 (>35); GLUCOSE, FASTING 211 MG/DL (74-106); POTASSIUM SERUM 3.8 MMOL/L (3.5-5.1); SODIUM LEVEL 139 MMOL/L (136-145); TOTAL PROTEIN 6.3 G/DL (5.7-8.2)
[2024-09-23] MEDS: ASPIRIN 81MG ENTERIC TABLET PO SCH (07:21)
[2024-09-23] MEDS: ATORVASTATIN 10 MG TAB PO SCH (07:22)
[2024-09-23] MEDS: DOCUSATE SODIUM 100MG CAPSULE PO SCH (07:22)
[2024-09-23] MEDS: ACETAMINOPHEN 325 MG TAB PO PRN (07:22)
[2024-09-23] MEDS: SITagliptin 50 MG TAB (JANUVIA) PO SCH (07:22)
[2024-09-23] MEDS: ENOXAPARIN 40MG/0.4ML SYRINGE (J1650 PER 10MG) SC SCH (07:23)
[2024-09-23] MEDS: LIDOCAINE 5% (LIDODERM) PATCH TD SCH (07:23)
[2024-09-23] MEDS: LEVEMIR (INSULIN DETEMIR) 1 UNITS/0.01ML SC SCH (07:24)
[2024-09-23] MEDS: PRIMIDONE 250 MG TAB PO SCH (07:24)
[2024-09-23] MEDS: INSULIN LISPRO (NovoLOG) PER UNIT SC SCH ×2 (07:24→21:00)
[2024-09-23] MEDS: FIBER-CON 625 MG TAB PO SCH (09:00)
[2024-09-23 12:00] VITALS: BP 135/65; TEMP 97.6; O2SAT 99
[2024-09-23] MEDS: ADVAIR HFA 230/21MCG INHALER INH SCH (19:03)
[2024-09-23 19:29] VITALS: BP 142/63; TEMP 97.6; O2SAT 94
[2024-09-23] MEDS: LORATADINE 10 MG TAB PO SCH (21:45)
[2024-09-23] MEDS: MONTELUKAST 10 MG TAB PO SCH (21:45)
[2024-09-23] MEDS: METOPROLOL SUCC (TopROL XL) 50MG **XL** TAB PO SCH (21:46)
[2024-09-23] MEDS: SENNA 8.6 MG TAB (SENOKOT) PO SCH (21:46)
[2024-09-23] MEDS: FINASTERIDE 5MG TAB PO SCH (21:46)
[2024-09-24 03:23] VITALS: BP 134/60; TEMP 97.1; O2SAT 96
[2024-09-24 12:00] VITALS: BP 133/64; TEMP 97.5; O2SAT 97
[2024-09-24 20:00] VITALS: BP 121/58; TEMP 97.9; O2SAT 94
[2024-09-24] MEDS: ALBUTEROL 90 MCG/ACT 8GM HFA INHALER INH PRN (20:14)
[2024-09-25 04:00] VITALS: BP 141/63; TEMP 97.8; O2SAT 98
[2024-09-25 07:50] LABS: HEMATOCRIT 37.5 % (42.0-52.0); HEMOGLOBIN 13.1 g/dl (13.5-17.5); MEAN CORPUSCULAR HEMOGLOBIN 32.1 pg (27.0-33.0); MEAN CORPUSCULAR HGB CONC 34.9 g/dl (32.0-36.5); MEAN CORPUSCULAR VOLUME 91.9 fl (80.0-96.0); PLATELET COUNT, AUTOMATED 268 10^3/uL (150-450); RED BLOOD COUNT 4.08 10^6/uL (4.30-6.10)
[2024-09-25 12:19] VITALS: BP 138/64; TEMP 97.6; O2SAT 98
[2024-09-25 20:00] VITALS: BP 139/63; TEMP 97.5; O2SAT 94
[2024-09-26 04:00] VITALS: BP 122/58; TEMP 97.6; O2SAT 95
[2024-09-26 11:46] VITALS: BP 112/60; TEMP 98.5; O2SAT 96
[2024-09-26 20:30] VITALS: BP 141/63; TEMP 96.8; O2SAT 96
[2024-09-27 04:30] VITALS: BP 125/60; TEMP 98.2; O2SAT 96
[2024-09-27 12:00] VITALS: BP 120/56; TEMP 97.7; O2SAT 97
[2024-09-27 20:05] VITALS: BP 134/62; TEMP 98.6; O2SAT 95
[2024-09-28 04:00] VITALS: BP 137/65; TEMP 97.6; O2SAT 95
[2024-09-28 06:48] LABS: HEMATOCRIT 35.2 % (42.0-52.0); MEAN CORPUSCULAR HGB CONC 34.1 g/dl (32.0-36.5); MEAN CORPUSCULAR VOLUME 93.9 fl (80.0-96.0); PLATELET COUNT, AUTOMATED 265 10^3/uL (150-450); RED BLOOD COUNT 3.75 10^6/uL (4.30-6.10); WHITE BLOOD COUNT 6.6 10^3/uL (4.0-10.0)
[2024-09-28 12:00] VITALS: BP 135/63; TEMP 98.4; O2SAT 98
[2024-09-28] MEDS ORDERED: NICOTINE POLACRILEX 2 MG GUM PO PRN (13:05)
[2024-09-28] MEDS: MOM 30ML SUSPENSION UDC PO PRN (13:17)
[2024-09-28 19:41] VITALS: BP 138/68; TEMP 98.9; O2SAT 96
[2024-09-29 05:09] VITALS: BP 119/61; TEMP 96.9; O2SAT 93
[2024-09-29 12:00] VITALS: BP 135/64; TEMP 98.3; O2SAT 96
[2024-09-29] MEDS: DOCUSATE SODIUM 100MG CAPSULE PO SCH (12:45)
[2024-09-29] MEDS: BISACODYL 10MG SUPP PR ONE (12:46)
[2024-09-29] MEDS: metFORMIN (GLUCOPHAGE) 1000MG TABLET PO SCH (18:14)
[2024-09-29 20:00] VITALS: BP 139/65; TEMP 98.6; O2SAT 94
[2024-09-29] MEDS: LanTUS (INSULIN GLARGINE INJ) 1 UNITS/0.01 ML SC SCH (21:10)
[2024-09-30 04:00] VITALS: BP 133/73; TEMP 97.4; O2SAT 95
[2024-09-30] MEDS: NICOTINE POLACRILEX 2 MG PO PRN (10:19)
[2024-09-30 12:00] VITALS: BP 130/68; TEMP 97.6; O2SAT 95
[2024-09-30] MEDS ORDERED: MOM30SS2 PO (15:53)
[2024-09-30] MEDS ORDERED: LIDO5TD TD (15:53)
[2024-09-30] MEDS ORDERED: COLA100C5 PO (15:53)
[2024-09-30] MEDS ORDERED: SENO8.6T5 PO (15:53)
[2024-09-30 20:00] VITALS: BP 133/64; TEMP 98.5; O2SAT 94
[2024-10-01 04:00] VITALS: BP 131/64; TEMP 97.8; O2SAT 93
[2024-10-01 06:45] LABS: HEMATOCRIT 34.2 % (42.0-52.0); HEMOGLOBIN 11.6 g/dl (13.5-17.5); MEAN CORPUSCULAR HEMOGLOBIN 31.3 pg (27.0-33.0); MEAN CORPUSCULAR HGB CONC 33.9 g/dl (32.0-36.5); MEAN CORPUSCULAR VOLUME 92.2 fl (80.0-96.0); PLATELET COUNT, AUTOMATED 250 10^3/uL (150-450); RED BLOOD COUNT 3.71 10^6/uL (4.30-6.10); WHITE BLOOD COUNT 7.2 10^3/uL (4.0-10.0)
[2024-10-01] MEDS: OMEPRAZOLE 20MG CAP PO ONE (11:36)
[2024-10-01 12:00] VITALS: BP 151/68; TEMP 97.7; O2SAT 99
[2024-10-01 20:00] VITALS: BP 133/66; TEMP 97.9; O2SAT 94
[2024-10-01 20:09] VITALS: BP 133/66
[2024-10-01] MEDS: OMEPRAZOLE 20MG CAP PO SCH (20:09)
[2024-10-02 04:00] VITALS: BP 142/69; TEMP 97.5; O2SAT 96
[2024-10-02 06:30] LABS: HEMATOCRIT 35.5 % (42.0-52.0); HEMOGLOBIN 12.1 g/dl (13.5-17.5); MEAN CORPUSCULAR HEMOGLOBIN 31.3 pg (27.0-33.0); MEAN CORPUSCULAR HGB CONC 34.1 g/dl (32.0-36.5); PLATELET COUNT, AUTOMATED 276 10^3/uL (150-450); RED BLOOD COUNT 3.86 10^6/uL (4.30-6.10); WHITE BLOOD COUNT 8.2 10^3/uL (4.0-10.0)
[2024-10-02 06:56] LABS: BLOOD UREA NITROGEN 13 MG/DL (9-23); CALCIUM LEVEL 8.6 MG/DL (8.3-10.6); CARBON DIOXIDE LEVEL 28 MMOL/L (20-31); CHLORIDE LEVEL 105 MMOL/L (98-107); CREATININE FOR GFR 0.75 MG/DL (0.70-1.30); GLOMERULAR FILTRATION RATE > 60.0 (>35); GLUCOSE, FASTING 114 MG/DL (74-106); POTASSIUM SERUM 3.3 MMOL/L (3.5-5.1); SODIUM LEVEL 142 MMOL/L (136-145)
== END 2024-10-02 11:00 | disposition home health service (06) | DRG 949 ==
LOC: M PM&R 20:57
PROVIDERS: ADMIT Physical Medicine & Rehabilitation; ATTEND Physical Medicine & Rehabilitation
DX: T83.511D Infection and inflammatory reaction due to indwelling urethral catheter, subsequent encounter (principal); N39.0 Urinary tract infection, site not specified; E11.42 Type 2 diabetes mellitus with diabetic polyneuropathy; I10 Essential (primary) hypertension; M54.50 Low back pain, unspecified; G89.29 Other chronic pain; E78.5 Hyperlipidemia, unspecified; J45.909 Unspecified asthma, uncomplicated; N40.1 Benign prostatic hyperplasia with lower urinary tract symptoms; F17.200 Nicotine dependence, unspecified, uncomplicated; G25.0 Essential tremor; E11.65 Type 2 diabetes mellitus with hyperglycemia; E11.649 Type 2 diabetes mellitus with hypoglycemia without coma; R26.89 Other abnormalities of gait and mobility; R19.7 Diarrhea, unspecified; K59.09 Other constipation; I49.3 Ventricular premature depolarization; Z74.1 Need for assistance with personal care; Z74.09 Other reduced mobility; M17.12 Unilateral primary osteoarthritis, left knee; R33.9 Retention of urine, unspecified; Z79.82 Long term (current) use of aspirin; Z79.4 Long term (current) use of insulin; Z79.899 Other long term (current) drug therapy; Z96.651 Presence of right artificial knee joint; Z71.6 Tobacco abuse counseling

== ENCOUNTER → 2024-10-27 | Outpatient (REF) | payer MEDICARE, OTHER ==
[~2024-10-27] MED LIST changes: +ACET32TAB PO; +COLA100C5 PO; +FIBE62TA PO; +LIDO5TD TD; +LIDO5TD TOP; +MILKSUS3 PO; +MIRA33506 PO; +MOM30SS2 PO; +SENN-52 PO; +SENN8.6T58 PO; +SENO8.6T5 PO
[2024-10-28 13:51] LABS: APPEARANCE, URINE HAZY (CLEAR); BACTERIA, URINE AUTO 2+ (NEGATIVE); BILIRUBIN, URINE AUTO NEGATIVE (NEGATIVE); BLOOD, URINE BLOOD 1+ (NEGATIVE); COLOR, URINE STRAW (YELLOW); GLUCOSE, URINE (UA) AUTO NEGATIVE (NEGATIVE); KETONE, URINE AUTO NEGATIVE (NEGATIVE); LEUKOCYTE ESTERASE, URINE AUTO 2+ (NEGATIVE); MUCUS, URINE SMALL (NEGATIVE); NITRITE, URINE AUTO NEGATIVE (NEGATIVE); PROTEIN, URINE AUTO NEGATIVE (NEGATIVE); RBC, URINE AUTO 8 /HPF (0-3); SPECIFIC GRAVITY URINE AUTO 1.005 (1.002-1.035); SQUAMOUS EPITHELIAL CELL UR AU 0 /HPF (0-6); UROBILINOGEN, URINE AUTO 0.2 mg/dL (0.0-2.0); WBC, URINE AUTO 20 /HPF (0-3)
== END ==
LOC: M SMT 12:38
PROVIDERS: ATTEND Physician Assistant
DX: R30.0 Dysuria (principal)

== ENCOUNTER 2024-10-28 19:24 | Inpatient (IN) | payer MEDICARE, OTHER ==
[~2024-10-28] VITALS: Ht 188 cm; Wt 77.8 kg
[~2024-10-28 19:24] MED LIST changes: -LIDO5TD TOP; -MILKSUS3 PO; -SENN8.6T58 PO
[2024-10-28 19:58] LABS: BASO # 0.1 10^3/uL (0.0-0.2); BASO % 0.5 % (0.0-1.0); EOS # 0.1 10^3/uL (0.0-0.5); EOS % 1.4 % (0.0-3.0); HEMATOCRIT 44.1 % (42.0-52.0); LYMPH # 2.9 10^3/uL (1.5-5.0); LYMPH % 28.8 % (24.0-44.0); MEAN CORPUSCULAR HEMOGLOBIN 31.2 pg (27.0-33.0); MEAN CORPUSCULAR VOLUME 91.7 fl (80.0-96.0); MONO # 0.8 10^3/uL (0.0-0.8); MONO % 8.1 % (2.0-8.0); NEUTROPHILS # 6.2 10^3/uL (1.5-8.5); PLATELET COUNT, AUTOMATED 229 10^3/uL (150-450); RED BLOOD COUNT 4.81 10^6/uL (4.30-6.10); WHITE BLOOD COUNT 10.1 10^3/uL (4.0-10.0)
[2024-10-28 20:02] LABS: KETONE, URINE AUTO RFX NEGATIVE (NEGATIVE); LEUKOCYTE ESTERASE UR AUTO RFX 3+ (NEGATIVE); MUCUS, URINE RFX SMALL (NEGATIVE); NITRITE, URINE AUTO RFX NEGATIVE (NEGATIVE); RBC, URINE AUTO RFX 11 /HPF (0-3); SQUAM EPITHELIAL CELL UR AURFX 0 /HPF (0-6); WBC, URINE AUTO RFX 118 /HPF (0-3)
[2024-10-28 20:18] LABS: INR 1.19; PARTIAL THROMBOPLASTIN TIME 30.6 SECONDS (24.8-34.2); PROTHROMBIN TIME 15.4 SECONDS (12.5-14.5)
[2024-10-28 20:22] LABS: CK-MB VALUE MASS 1.8 NG/ML (<3.6); LIPASE 36 U/L (12-53)
[2024-10-28 20:24] LABS: ALBUMIN 3.2 G/DL (3.2-5.2); ALKALINE PHOSPHATASE 119 U/L (40-129); ALT/SGPT 16 U/L (7.0-40); AST/SGOT 13 U/L (<34); BILIRUBIN,DIRECT < 0.1 MG/DL (<0.4); BILIRUBIN,TOTAL 0.3 MG/DL (0.3-1.2); BLOOD UREA NITROGEN 25 MG/DL (9-23); CALCIUM LEVEL 9.1 MG/DL (8.3-10.6); CARBON DIOXIDE LEVEL 27 MMOL/L (20-31); CHLORIDE LEVEL 104 MMOL/L (98-107); CREATININE FOR GFR 0.83 MG/DL (0.70-1.30); GLOMERULAR FILTRATION RATE > 60.0 (>35); GLUCOSE, FASTING 207 MG/DL (74-106); POTASSIUM SERUM 3.7 MMOL/L (3.5-5.1); SODIUM LEVEL 141 MMOL/L (136-145); TOTAL PROTEIN 6.9 G/DL (5.7-8.2)
[2024-10-28 20:39] LABS: CPK CREATINE PHOSPHOKINASE 75 U/L (46-171)
[2024-10-28] MEDS ORDERED: MILKSUS3 PO (21:28)
[2024-10-28] MEDS ORDERED: LIDO5TD TOP (21:28)
[2024-10-28] MEDS ORDERED: COLA100C5 PO (21:28)
[2024-10-28] MEDS ORDERED: HOME MED LIST COMPLETE! XX SCH (21:30)
[2024-10-28] MEDS: cefTRIAXone SOD 2 GM in DEXTROSE 5% (D5W) ADV/MINI-BAG 50 ML IV ONE (21:52)
[2024-10-28] MEDS: [UNRECOGNIZED DRUG - OTHER] IV ONE (21:53)
[2024-10-28] MEDS: NS 0.9% IV ONE (21:53)
[2024-10-28] MEDS ORDERED: SENN8.6T58 PO (22:46)
[2024-10-28] MEDS ORDERED: ALBUTEROL 90 MCG/ACT 8GM HFA INHALER INH PRN (23:25)
[2024-10-28] MEDS ORDERED: GLUCAGON INJ 1MG VIAL SC PRN (23:25)
[2024-10-28] MEDS ORDERED: DEXTROSE 50% 50ML SYRINGE IV PRN (23:25)
[2024-10-28] MEDS ORDERED: IPRATROPIUM 0.5MG/ALBUTEROL 2.5MG INH SOL UD 3ML (DUONEB) NEB PRN (23:25)
[2024-10-28] MEDS ORDERED: GLUCOSE 4 GM CHEW PO PRN (23:25)
[2024-10-29 01:01] LABS: CK-MB VALUE MASS 1.2 NG/ML (<3.6)
[2024-10-29 01:04] LABS: MB/CK RELATIVE INDEX 2.1 (< OR =4)
[2024-10-29 01:32] LABS: MAGNESIUM LEVEL 1.6 MG/DL (1.8-2.4)
[2024-10-29] MEDS: NS (Normal Saline) 0.9% 1,000 ML IV SCH (04:00)
[2024-10-29 04:28] LABS: HEMATOCRIT 37.2 % (42.0-52.0); MEAN CORPUSCULAR HEMOGLOBIN 31.5 pg (27.0-33.0); MEAN CORPUSCULAR HGB CONC 34.9 g/dl (32.0-36.5); MEAN CORPUSCULAR VOLUME 90.1 fl (80.0-96.0); PLATELET COUNT, AUTOMATED 194 10^3/uL (150-450); RED BLOOD COUNT 4.13 10^6/uL (4.30-6.10); WHITE BLOOD COUNT 8.3 10^3/uL (4.0-10.0)
[2024-10-29 05:10] LABS: ALBUMIN 2.7 G/DL (3.2-5.2); ALKALINE PHOSPHATASE 97 U/L (40-129); ALT/SGPT 13 U/L (7.0-40); AST/SGOT 11 U/L (<34); BILIRUBIN,TOTAL 0.3 MG/DL (0.3-1.2); BLOOD UREA NITROGEN 20 MG/DL (9-23); CALCIUM LEVEL 8.3 MG/DL (8.3-10.6); CARBON DIOXIDE LEVEL 28 MMOL/L (20-31); CHLORIDE LEVEL 106 MMOL/L (98-107); CREATININE FOR GFR 0.61 MG/DL (0.70-1.30); GLOMERULAR FILTRATION RATE > 60.0 (>35); GLUCOSE, FASTING 134 MG/DL (74-106); POTASSIUM SERUM 3.1 MMOL/L (3.5-5.1); SODIUM LEVEL 142 MMOL/L (136-145); TOTAL PROTEIN 5.7 G/DL (5.7-8.2)
[2024-10-29] MEDS: KCL 10MEQ/100ML SWI (KRUN) 10 MEQ in IV 1 EA IV SCH (06:52)
[2024-10-29] MEDS: ADVAIR HFA 230/21MCG INHALER INH SCH (07:48)
[2024-10-29] MEDS: POTASSIUM CHLORIDE 10MEQ SR TABLET PO ONE (08:02)
[2024-10-29] MEDS: MIRALAX *UNIT DOSE* 17GM PACKET PO SCH (09:21)
[2024-10-29] MEDS: ENOXAPARIN 40MG/0.4ML SYRINGE (J1650 PER 10MG) SC SCH (09:21)
[2024-10-29] MEDS: ATORVASTATIN 10 MG TAB PO SCH (09:22)
[2024-10-29] MEDS: METAMUCIL (PSYLLIUM) PACKET PO SCH (09:22)
[2024-10-29] MEDS: INSULIN LISPRO (NovoLOG) PER UNIT SC SCH ×2 (09:22→20:16)
[2024-10-29] MEDS: AZELASTINE 137MCG NASAL SPY 30 ML (ASTELIN) SCH (10:11)
[2024-10-29] MEDS: PRIMIDONE 250 MG TAB PO SCH (10:11)
[2024-10-29] MEDS: cefTRIAXone SOD 1 GM in DEXTROSE 5% (D5W) ADV/MINI-BAG 50 ML IV SCH (20:08)
[2024-10-29] MEDS: MONTELUKAST 10 MG TAB PO SCH (20:15)
[2024-10-29] MEDS: FINASTERIDE 5MG TAB PO SCH (20:15)
[2024-10-29] MEDS: METOPROLOL SUCC (TopROL XL) 50MG **XL** TAB PO SCH (20:16)
[2024-10-29] MEDS: SENNA 8.6 MG TAB (SENOKOT) PO SCH ×2 (20:18→21:42)
[2024-10-29 21:30] VITALS: BP 148/71; TEMP 97.5; O2SAT 99
[2024-10-30 01:16] LABS: BLOOD UREA NITROGEN 18 MG/DL (9-23); CALCIUM LEVEL 8.6 MG/DL (8.3-10.6); CARBON DIOXIDE LEVEL 29 MMOL/L (20-31); CHLORIDE LEVEL 104 MMOL/L (98-107); CREATININE FOR GFR 0.68 MG/DL (0.70-1.30); GLOMERULAR FILTRATION RATE > 60.0 (>35); GLUCOSE, FASTING 213 MG/DL (74-106); MAGNESIUM LEVEL 1.6 MG/DL (1.8-2.4); POTASSIUM SERUM 3.7 MMOL/L (3.5-5.1); SODIUM LEVEL 140 MMOL/L (136-145)
[2024-10-30 03:20] VITALS: BP 152/76; TEMP 97.3; O2SAT 94
[2024-10-30] MEDS: MAG SULF 1GM/100ML (MAG RUN) 1 GM in IV 1 EA IV ONE (04:20)
[2024-10-30 06:11] LABS: HEMATOCRIT 37.5 % (42.0-52.0); HEMOGLOBIN 12.6 g/dl (13.5-17.5); MEAN CORPUSCULAR HEMOGLOBIN 30.4 pg (27.0-33.0); MEAN CORPUSCULAR HGB CONC 33.6 g/dl (32.0-36.5); MEAN CORPUSCULAR VOLUME 90.4 fl (80.0-96.0); PLATELET COUNT, AUTOMATED 197 10^3/uL (150-450); RED BLOOD COUNT 4.15 10^6/uL (4.30-6.10); WHITE BLOOD COUNT 8.6 10^3/uL (4.0-10.0)
[2024-10-30 06:36] LABS: ALBUMIN 2.8 G/DL (3.2-5.2); ALKALINE PHOSPHATASE 111 U/L (40-129); ALT/SGPT 13 U/L (7.0-40); AST/SGOT 9 U/L (<34); BILIRUBIN,TOTAL 0.3 MG/DL (0.3-1.2); BLOOD UREA NITROGEN 13 MG/DL (9-23); CALCIUM LEVEL 9.1 MG/DL (8.3-10.6); CARBON DIOXIDE LEVEL 29 MMOL/L (20-31); CHLORIDE LEVEL 106 MMOL/L (98-107); GLOMERULAR FILTRATION RATE > 60.0 (>35); GLUCOSE, FASTING 232 MG/DL (74-106); SODIUM LEVEL 142 MMOL/L (136-145); TOTAL PROTEIN 5.9 G/DL (5.7-8.2)
[2024-10-30] MEDS ORDERED: MAGNESIUM OXIDE 400MG TAB (MAG-OX) PO SCH (09:00)
[2024-10-30] MEDS: ASPIRIN 81MG ENTERIC TABLET PO SCH (09:26)
[2024-10-30] MEDS: SITagliptin 50 MG TAB (JANUVIA) PO SCH (09:26)
[2024-10-30] MEDS: MAGNESIUM OXIDE 400MG TAB (MAG-OX) PO SCH (09:27)
[2024-10-30] MEDS: LanTUS (INSULIN GLARGINE INJ) 1 UNITS/0.01 ML SC SCH (09:28)
[2024-10-30] MEDS: ACETAMINOPHEN 325 MG TAB PO PRN (09:33)
[2024-10-30 12:00] VITALS: BP 119/63; TEMP 97.2; O2SAT 94
[2024-10-30] MEDS ORDERED: traMADol 50 MG TAB PO PRN (14:45)
[2024-10-30] MEDS: KETOROLAC 30 MG/ML 1ML VIAL IV SCH (15:40)
[2024-10-30] MEDS: ACETAMINOPHEN 500 MG TAB PO SCH (15:40)
[2024-10-30] MEDS: DICLOFENAC EPOLAMINE 1.3% PATCH TOP SCH (15:44)
[2024-10-30 20:00] VITALS: BP 140/77; TEMP 97.2; O2SAT 96
[2024-10-31 04:00] VITALS: BP 141/72; TEMP 97.2; O2SAT 94
[2024-10-31 05:42] LABS: BASO % 0.6 % (0.0-1.0); EOS # 0.2 10^3/uL (0.0-0.5); EOS % 2.8 % (0.0-3.0); HEMATOCRIT 35.2 % (42.0-52.0); LYMPH # 2.1 10^3/uL (1.5-5.0); LYMPH % 31.7 % (24.0-44.0); MEAN CORPUSCULAR HEMOGLOBIN 30.9 pg (27.0-33.0); MEAN CORPUSCULAR HGB CONC 34.1 g/dl (32.0-36.5); MEAN CORPUSCULAR VOLUME 90.7 fl (80.0-96.0); MONO # 0.9 10^3/uL (0.0-0.8); MONO % 13.6 % (2.0-8.0); NEUTROPHILS # 3.3 10^3/uL (1.5-8.5); NEUTROPHILS % 51.1 % (36.0-66.0); PLATELET COUNT, AUTOMATED 182 10^3/uL (150-450); RED BLOOD COUNT 3.88 10^6/uL (4.30-6.10); WHITE BLOOD COUNT 6.5 10^3/uL (4.0-10.0)
[2024-10-31 06:09] LABS: BLOOD UREA NITROGEN 17 MG/DL (9-23); CALCIUM LEVEL 8.5 MG/DL (8.3-10.6); CARBON DIOXIDE LEVEL 28 MMOL/L (20-31); CHLORIDE LEVEL 105 MMOL/L (98-107); GLOMERULAR FILTRATION RATE > 60.0 (>35); GLUCOSE, FASTING 224 MG/DL (74-106); MAGNESIUM LEVEL 1.8 MG/DL (1.8-2.4); SODIUM LEVEL 140 MMOL/L (136-145)
[2024-10-31 08:00] VITALS: BP 147/79; TEMP 97; O2SAT 97
[2024-10-31 11:41] VITALS: BP 140/81; TEMP 97.3; O2SAT 94
[2024-10-31 20:00] VITALS: BP 125/64; TEMP 97; O2SAT 97
[2024-10-31] MEDS: CEFDINIR 300 MG CAP (OMNICEF) PO SCH (21:15)
[2024-11-01 04:12] VITALS: BP 137/80; TEMP 97.3; O2SAT 94
[2024-11-01 05:57] LABS: BASO % 0.6 % (0.0-1.0); EOS # 0.2 10^3/uL (0.0-0.5); EOS % 2.5 % (0.0-3.0); HEMATOCRIT 34.9 % (42.0-52.0); HEMOGLOBIN 12.1 g/dl (13.5-17.5); LYMPH # 1.9 10^3/uL (1.5-5.0); LYMPH % 28.7 % (24.0-44.0); MEAN CORPUSCULAR HEMOGLOBIN 31.4 pg (27.0-33.0); MEAN CORPUSCULAR HGB CONC 34.7 g/dl (32.0-36.5); MEAN CORPUSCULAR VOLUME 90.6 fl (80.0-96.0); MONO # 0.9 10^3/uL (0.0-0.8); MONO % 12.7 % (2.0-8.0); NEUTROPHILS # 3.7 10^3/uL (1.5-8.5); NEUTROPHILS % 55.4 % (36.0-66.0); PLATELET COUNT, AUTOMATED 189 10^3/uL (150-450); RED BLOOD COUNT 3.85 10^6/uL (4.30-6.10); WHITE BLOOD COUNT 6.8 10^3/uL (4.0-10.0)
[2024-11-01 06:35] LABS: BLOOD UREA NITROGEN 19 MG/DL (9-23); CALCIUM LEVEL 8.7 MG/DL (8.3-10.6); CARBON DIOXIDE LEVEL 28 MMOL/L (20-31); CHLORIDE LEVEL 103 MMOL/L (98-107); CREATININE FOR GFR 0.73 MG/DL (0.70-1.30); GLOMERULAR FILTRATION RATE > 60.0 (>35); GLUCOSE, FASTING 187 MG/DL (74-106); POTASSIUM SERUM 3.9 MMOL/L (3.5-5.1); SODIUM LEVEL 141 MMOL/L (136-145)
[2024-11-01] MEDS: FUROSEMIDE 100MG/10ML VIAL IV ONE (10:33)
[2024-11-01 14:00] VITALS: BP 134/80; TEMP 97.3; O2SAT 96
[2024-11-01 21:05] VITALS: BP 150/79; TEMP 98.4; O2SAT 100
[2024-11-02 04:39] VITALS: BP 120/57; TEMP 97.5; O2SAT 90
[2024-11-02 06:01] LABS: BASO % 0.5 % (0.0-1.0); EOS % 0.7 % (0.0-3.0); HEMATOCRIT 33.1 % (42.0-52.0); HEMOGLOBIN 11.4 g/dl (13.5-17.5); LYMPH # 1.4 10^3/uL (1.5-5.0); LYMPH % 24.2 % (24.0-44.0); MEAN CORPUSCULAR HEMOGLOBIN 31.1 pg (27.0-33.0); MEAN CORPUSCULAR HGB CONC 34.4 g/dl (32.0-36.5); MEAN CORPUSCULAR VOLUME 90.4 fl (80.0-96.0); MONO # 1.1 10^3/uL (0.0-0.8); MONO % 19.5 % (2.0-8.0); NEUTROPHILS # 3.1 10^3/uL (1.5-8.5); NEUTROPHILS % 54.9 % (36.0-66.0); PLATELET COUNT, AUTOMATED 193 10^3/uL (150-450); RED BLOOD COUNT 3.66 10^6/uL (4.30-6.10); WHITE BLOOD COUNT 5.6 10^3/uL (4.0-10.0)
[2024-11-02 06:18] LABS: BLOOD UREA NITROGEN 18 MG/DL (9-23); CALCIUM LEVEL 8.3 MG/DL (8.3-10.6); CARBON DIOXIDE LEVEL 30 MMOL/L (20-31); CHLORIDE LEVEL 106 MMOL/L (98-107); CREATININE FOR GFR 0.81 MG/DL (0.70-1.30); GLOMERULAR FILTRATION RATE > 60.0 (>35); GLUCOSE, FASTING 161 MG/DL (74-106); POTASSIUM SERUM 3.6 MMOL/L (3.5-5.1); SODIUM LEVEL 143 MMOL/L (136-145)
[2024-11-02] MEDS: OSELTAMIVIR PHOSPHATE 75 MG CAP PO SCH (10:07)
[2024-11-02] MEDS: TORSEMIDE 20 MG TAB PO SCH (10:09)
[2024-11-02 12:00] VITALS: BP 119/56; TEMP 98.1; O2SAT 93
[2024-11-02] MEDS: IPRATROPIUM 0.5MG/ALBUTEROL 2.5MG INH SOL UD 3ML (DUONEB) NEB SCH (13:26)
[2024-11-02 20:33] VITALS: BP 120/57; TEMP 97.7; O2SAT 95
[2024-11-02] MEDS ORDERED: DEXTROMETHORPHAN 60MG/10ML SUSP 90ML BTL(DELSYM) PO PRN (21:45)
[2024-11-03 04:00] VITALS: BP 144/77; TEMP 98.4; O2SAT 97
[2024-11-03 06:06] LABS: BASO % 0.5 % (0.0-1.0); EOS % 0.2 % (0.0-3.0); HEMATOCRIT 35.4 % (42.0-52.0); LYMPH % 18.3 % (24.0-44.0); MEAN CORPUSCULAR HEMOGLOBIN 31.4 pg (27.0-33.0); MEAN CORPUSCULAR HGB CONC 33.9 g/dl (32.0-36.5); MEAN CORPUSCULAR VOLUME 92.7 fl (80.0-96.0); MONO # 1.2 10^3/uL (0.0-0.8); MONO % 20.6 % (2.0-8.0); NEUTROPHILS # 3.4 10^3/uL (1.5-8.5); NEUTROPHILS % 60.2 % (36.0-66.0); PLATELET COUNT, AUTOMATED 187 10^3/uL (150-450); RED BLOOD COUNT 3.82 10^6/uL (4.30-6.10); WHITE BLOOD COUNT 5.6 10^3/uL (4.0-10.0)
[2024-11-03 06:26] LABS: BLOOD UREA NITROGEN 16 MG/DL (9-23); CALCIUM LEVEL 8.5 MG/DL (8.3-10.6); CARBON DIOXIDE LEVEL 31 MMOL/L (20-31); CHLORIDE LEVEL 102 MMOL/L (98-107); CREATININE FOR GFR 0.78 MG/DL (0.70-1.30); GLOMERULAR FILTRATION RATE > 60.0 (>35); GLUCOSE, FASTING 196 MG/DL (74-106); POTASSIUM SERUM 3.6 MMOL/L (3.5-5.1); SODIUM LEVEL 141 MMOL/L (136-145)
[2024-11-03] MEDS: LanTUS (INSULIN GLARGINE INJ) 1 UNITS/0.01 ML SC SCH ×2 (09:17→21:21)
[2024-11-03 12:00] VITALS: BP 120/61; TEMP 97.5; O2SAT 92
[2024-11-03 20:00] VITALS: BP 140/63; TEMP 98.2; O2SAT 94
[2024-11-04 04:00] VITALS: BP 120/69; TEMP 97.3; O2SAT 98
[2024-11-04 05:58] LABS: BASO % 0.4 % (0.0-1.0); EOS % 0.7 % (0.0-3.0); HEMATOCRIT 33.6 % (42.0-52.0); HEMOGLOBIN 11.4 g/dl (13.5-17.5); LYMPH # 1.7 10^3/uL (1.5-5.0); LYMPH % 38.9 % (24.0-44.0); MEAN CORPUSCULAR HEMOGLOBIN 31.3 pg (27.0-33.0); MEAN CORPUSCULAR HGB CONC 33.9 g/dl (32.0-36.5); MEAN CORPUSCULAR VOLUME 92.3 fl (80.0-96.0); MONO # 1.1 10^3/uL (0.0-0.8); MONO % 24.5 % (2.0-8.0); NEUTROPHILS # 1.6 10^3/uL (1.5-8.5); NEUTROPHILS % 35.3 % (36.0-66.0); PLATELET COUNT, AUTOMATED 147 10^3/uL (150-450); RED BLOOD COUNT 3.64 10^6/uL (4.30-6.10); WHITE BLOOD COUNT 4.5 10^3/uL (4.0-10.0)
[2024-11-04 06:20] LABS: BLOOD UREA NITROGEN 16 MG/DL (9-23); CARBON DIOXIDE LEVEL 30 MMOL/L (20-31); CHLORIDE LEVEL 106 MMOL/L (98-107); CREATININE FOR GFR 0.81 MG/DL (0.70-1.30); GLOMERULAR FILTRATION RATE > 60.0 (>35); GLUCOSE, FASTING 197 MG/DL (74-106); POTASSIUM SERUM 3.5 MMOL/L (3.5-5.1); SODIUM LEVEL 144 MMOL/L (136-145)
[2024-11-04 20:18] VITALS: BP 139/69; TEMP 97.3; O2SAT 98
[2024-11-05 03:35] VITALS: BP 150/81; TEMP 97.5; O2SAT 95
[2024-11-05 03:48] VITALS: BP 140/68
[2024-11-05 05:47] LABS: BASO % 0.3 % (0.0-1.0); HEMATOCRIT 35.6 % (42.0-52.0); LYMPH # 1.6 10^3/uL (1.5-5.0); MEAN CORPUSCULAR HEMOGLOBIN 30.9 pg (27.0-33.0); MEAN CORPUSCULAR HGB CONC 33.7 g/dl (32.0-36.5); MEAN CORPUSCULAR VOLUME 91.8 fl (80.0-96.0); MONO # 0.7 10^3/uL (0.0-0.8); MONO % 18.1 % (2.0-8.0); NEUTROPHILS # 1.5 10^3/uL (1.5-8.5); NEUTROPHILS % 38.3 % (36.0-66.0); PLATELET COUNT, AUTOMATED 166 10^3/uL (150-450); RED BLOOD COUNT 3.88 10^6/uL (4.30-6.10); WHITE BLOOD COUNT 3.8 10^3/uL (4.0-10.0)
[2024-11-05 06:17] LABS: BLOOD UREA NITROGEN 16 MG/DL (9-23); CALCIUM LEVEL 8.4 MG/DL (8.3-10.6); CARBON DIOXIDE LEVEL 32 MMOL/L (20-31); CHLORIDE LEVEL 103 MMOL/L (98-107); CREATININE FOR GFR 0.71 MG/DL (0.70-1.30); GLOMERULAR FILTRATION RATE > 60.0 (>35); GLUCOSE, FASTING 171 MG/DL (74-106); POTASSIUM SERUM 3.3 MMOL/L (3.5-5.1); SODIUM LEVEL 142 MMOL/L (136-145)
[2024-11-05 06:57] VITALS: O2SAT 95
[2024-11-05 08:32] LABS: MAGNESIUM LEVEL 1.8 MG/DL (1.8-2.4)
[2024-11-05] MEDS: POTASSIUM CHLORIDE 10MEQ SR TABLET PO ONE (08:40)
[2024-11-05 11:38] VITALS: BP 115/72; TEMP 97.3; O2SAT 96
[2024-11-05] MEDS: DOCUSATE SODIUM 100MG CAPSULE PO PRN (15:56)
[2024-11-05] MEDS ORDERED: FUROSEMIDE 10MG PER 1/2 TABLET PO SCH (16:45)
[2024-11-05] MEDS: IPRATROPIUM 0.5MG/ALBUTEROL 2.5MG INH SOL UD 3ML (DUONEB) NEB SCH (19:28)
[2024-11-05 19:58] VITALS: BP 121/69; TEMP 97.5; O2SAT 95
[2024-11-05 21:00] VITALS: BP 121/69
[2024-11-06 04:06] VITALS: BP 138/72; TEMP 97.3; O2SAT 93
[2024-11-06 05:56] LABS: BASO % 0.3 % (0.0-1.0); EOS # 0.1 10^3/uL (0.0-0.5); EOS % 1.4 % (0.0-3.0); HEMATOCRIT 34.2 % (42.0-52.0); HEMOGLOBIN 11.7 g/dl (13.5-17.5); LYMPH # 1.6 10^3/uL (1.5-5.0); LYMPH % 43.8 % (24.0-44.0); MEAN CORPUSCULAR HGB CONC 34.2 g/dl (32.0-36.5); MEAN CORPUSCULAR VOLUME 90.7 fl (80.0-96.0); MONO # 0.5 10^3/uL (0.0-0.8); MONO % 13.7 % (2.0-8.0); NEUTROPHILS # 1.5 10^3/uL (1.5-8.5); NEUTROPHILS % 40.8 % (36.0-66.0); PLATELET COUNT, AUTOMATED 167 10^3/uL (150-450); RED BLOOD COUNT 3.77 10^6/uL (4.30-6.10); WHITE BLOOD COUNT 3.7 10^3/uL (4.0-10.0)
[2024-11-06 06:02] LABS: BLOOD UREA NITROGEN 16 MG/DL (9-23); CALCIUM LEVEL 8.1 MG/DL (8.3-10.6); CARBON DIOXIDE LEVEL 29 MMOL/L (20-31); CHLORIDE LEVEL 105 MMOL/L (98-107); CREATININE FOR GFR 0.71 MG/DL (0.70-1.30); GLOMERULAR FILTRATION RATE > 60.0 (>35); GLUCOSE, FASTING 113 MG/DL (74-106); POTASSIUM SERUM 3.6 MMOL/L (3.5-5.1); SODIUM LEVEL 142 MMOL/L (136-145)
[2024-11-06] MEDS ORDERED: OSEL75CA2 PO (11:45)
[2024-11-06] MEDS ORDERED: TORS20TA2 PO (11:45)
[2024-11-06] MEDS ORDERED: LANTINJ4 SC (11:45)
[2024-11-06 12:00] VITALS: BP 138/74; TEMP 97.3; O2SAT 96
== END 2024-11-06 14:21 | DRG 698 ==
LOC: M ED 19:24 → M ED INP 22:12 → M MSPAV 10-29 21:26
PROVIDERS: ADMIT Family Medicine; ATTEND Student in an Organized Health Care Education/Training Program
PROC: B246ZZZ Ultrasonography of Right and Left Heart (ICD-10-PCS; principal; 2024-10-29)
DX: T83.511A Infection and inflammatory reaction due to indwelling urethral catheter, initial encounter (principal); A41.9 Sepsis, unspecified organism; J10.1 Influenza due to other identified influenza virus with other respiratory manifestations; N40.0 Benign prostatic hyperplasia without lower urinary tract symptoms; E11.9 Type 2 diabetes mellitus without complications; G25.0 Essential tremor; E78.5 Hyperlipidemia, unspecified; K59.00 Constipation, unspecified; N39.0 Urinary tract infection, site not specified; R33.9 Retention of urine, unspecified; J45.909 Unspecified asthma, uncomplicated; R60.0 Localized edema; I10 Essential (primary) hypertension; Z79.82 Long term (current) use of aspirin; Z79.4 Long term (current) use of insulin; Z79.899 Other long term (current) drug therapy; Z87.891 Personal history of nicotine dependence; E87.6 Hypokalemia; E83.42 Hypomagnesemia; M25.562 Pain in left knee

== ENCOUNTER → 2024-11-07 | Outpatient (REF) ==
[~2024-11-07] MED LIST changes: +LIDO5TD TOP; +MILKSUS3 PO; +OSEL75CA2 PO; +SENN8.6T58 PO; +TORS20TA2 PO
[2024-11-07 09:12] LABS: HEMATOCRIT 39.6 % (42.0-52.0); HEMOGLOBIN 13.4 g/dl (13.5-17.5); MEAN CORPUSCULAR HEMOGLOBIN 30.8 pg (27.0-33.0); MEAN CORPUSCULAR HGB CONC 33.8 g/dl (32.0-36.5); PLATELET COUNT, AUTOMATED 223 10^3/uL (150-450); RED BLOOD COUNT 4.35 10^6/uL (4.30-6.10); WHITE BLOOD COUNT 7.4 10^3/uL (4.0-10.0)
[2024-11-07 09:32] LABS: BLOOD UREA NITROGEN 15 MG/DL (9-23); CARBON DIOXIDE LEVEL 29 MMOL/L (20-31); CHLORIDE LEVEL 103 MMOL/L (98-107); CREATININE FOR GFR 0.74 MG/DL (0.70-1.30); GLOMERULAR FILTRATION RATE > 60.0 (>35); GLUCOSE, FASTING 131 MG/DL (74-106); POTASSIUM SERUM 3.9 MMOL/L (3.5-5.1); SODIUM LEVEL 141 MMOL/L (136-145)
== END ==
LOC: SKLAB2 07:55
PROVIDERS: ATTEND Internal Medicine
DX: I10 Essential (primary) hypertension (principal)

== ENCOUNTER → 2024-11-13 | Outpatient (REF) ==
[2024-11-13 14:15] LABS: HEMATOCRIT 38.9 % (42.0-52.0); HEMOGLOBIN 13.4 g/dl (13.5-17.5); MEAN CORPUSCULAR HEMOGLOBIN 31.2 pg (27.0-33.0); MEAN CORPUSCULAR HGB CONC 34.4 g/dl (32.0-36.5); MEAN CORPUSCULAR VOLUME 90.5 fl (80.0-96.0); PLATELET COUNT, AUTOMATED 372 10^3/uL (150-450); WHITE BLOOD COUNT 10.8 10^3/uL (4.0-10.0)
[2024-11-13 14:49] LABS: BLOOD UREA NITROGEN 27 MG/DL (9-23); CALCIUM LEVEL 9.5 MG/DL (8.3-10.6); CARBON DIOXIDE LEVEL 27 MMOL/L (20-31); CHLORIDE LEVEL 101 MMOL/L (98-107); CREATININE FOR GFR 0.76 MG/DL (0.70-1.30); GLOMERULAR FILTRATION RATE > 90.0 (>35); GLUCOSE, FASTING 137 MG/DL (74-106); POTASSIUM SERUM 3.5 MMOL/L (3.5-5.1); SODIUM LEVEL 140 MMOL/L (136-145)
[2024-11-13 15:10] LABS: HEMOGLOBIN A1c 7.3 % (4.0-6.0)
== END ==
LOC: SKLAB2 13:13
PROVIDERS: ATTEND Internal Medicine
DX: I10 Essential (primary) hypertension (principal)

== ENCOUNTER → 2024-11-17 | Outpatient (REF) ==
[~2024-11-17] MED LIST changes: -FLOM0.4C39 PO; -OLME1TAB54 PO; +OLME1TAB93 PO; +TAMS-18 PO
[2024-11-17 06:20] LABS: HEMATOCRIT 36.2 % (42.0-52.0); HEMOGLOBIN 12.5 g/dl (13.5-17.5); MEAN CORPUSCULAR HEMOGLOBIN 30.9 pg (27.0-33.0); MEAN CORPUSCULAR HGB CONC 34.5 g/dl (32.0-36.5); MEAN CORPUSCULAR VOLUME 89.6 fl (80.0-96.0); PLATELET COUNT, AUTOMATED 347 10^3/uL (150-450); RED BLOOD COUNT 4.04 10^6/uL (4.30-6.10); WHITE BLOOD COUNT 7.1 10^3/uL (4.0-10.0)
[2024-11-17 06:48] LABS: BLOOD UREA NITROGEN 26 MG/DL (9-23); CALCIUM LEVEL 9.3 MG/DL (8.3-10.6); CARBON DIOXIDE LEVEL 29 MMOL/L (20-31); CHLORIDE LEVEL 105 MMOL/L (98-107); GLOMERULAR FILTRATION RATE > 90.0 (>35); GLUCOSE, FASTING 134 MG/DL (74-106); POTASSIUM SERUM 3.9 MMOL/L (3.5-5.1); SODIUM LEVEL 142 MMOL/L (136-145)
== END ==
LOC: SKLAB2 07:00
PROVIDERS: ATTEND Internal Medicine
DX: I10 Essential (primary) hypertension (principal)

== ENCOUNTER → 2024-11-20 | Outpatient (REF) ==
[~2024-11-20] MED LIST changes: +FLOM0.4C39 PO; +OLME1TAB54 PO; -OLME1TAB93 PO; -TAMS-18 PO
== END ==
LOC: SKLAB2 11:19
PROVIDERS: ATTEND Internal Medicine
DX: Z53.8 Procedure and treatment not carried out for other reasons (principal)

== ENCOUNTER → 2024-11-21 | Outpatient (REF) ==
[~2024-11-21] MED LIST changes: -FLOM0.4C39 PO; -OLME1TAB54 PO; +OLME1TAB93 PO; +TAMS-18 PO
[2024-11-21 08:15] LABS: HEMATOCRIT 39.1 % (42.0-52.0); HEMOGLOBIN 12.8 g/dl (13.5-17.5); MEAN CORPUSCULAR HEMOGLOBIN 29.9 pg (27.0-33.0); MEAN CORPUSCULAR HGB CONC 32.7 g/dl (32.0-36.5); MEAN CORPUSCULAR VOLUME 91.4 fl (80.0-96.0); PLATELET COUNT, AUTOMATED 195 10^3/uL (150-450); RED BLOOD COUNT 4.28 10^6/uL (4.30-6.10); WHITE BLOOD COUNT 7.6 10^3/uL (4.0-10.0)
[2024-11-21 08:46] LABS: BLOOD UREA NITROGEN 37 MG/DL (9-23); CALCIUM LEVEL 9.4 MG/DL (8.3-10.6); CARBON DIOXIDE LEVEL 31 MMOL/L (20-31); CHLORIDE LEVEL 101 MMOL/L (98-107); CREATININE FOR GFR 0.76 MG/DL (0.70-1.30); GLOMERULAR FILTRATION RATE > 90.0 (>35); GLUCOSE, FASTING 179 MG/DL (74-106); POTASSIUM SERUM 4.2 MMOL/L (3.5-5.1); SODIUM LEVEL 140 MMOL/L (136-145)
== END ==
LOC: SKLAB2 07:00
PROVIDERS: ATTEND Internal Medicine
DX: I10 Essential (primary) hypertension (principal)

== ENCOUNTER → 2024-12-17 | Outpatient (REF) | payer MEDICARE, OTHER ==
[~2024-12-17] MED LIST changes: -GLUC3SPR; +GLUC3SPR5; +LORA-1164 PO; -LORA-622 PO
[2024-12-17 16:00] LABS: BASO # 0.1 10^3/uL (0.0-0.2); BASO % 0.7 % (0.0-1.0); EOS # 0.1 10^3/uL (0.0-0.5); HEMATOCRIT 38.9 % (42.0-52.0); HEMOGLOBIN 13.2 g/dl (13.5-17.5); LYMPH % 22.1 % (24.0-44.0); MEAN CORPUSCULAR HEMOGLOBIN 30.5 pg (27.0-33.0); MEAN CORPUSCULAR HGB CONC 33.9 g/dl (32.0-36.5); MEAN CORPUSCULAR VOLUME 89.8 fl (80.0-96.0); MONO % 10.4 % (2.0-8.0); NEUTROPHILS % 65.6 % (36.0-66.0); PLATELET COUNT, AUTOMATED 307 10^3/uL (150-450); RED BLOOD COUNT 4.33 10^6/uL (4.30-6.10); WHITE BLOOD COUNT 9.2 10^3/uL (4.0-10.0)
[2024-12-17 16:34] LABS: ALBUMIN 2.9 G/DL (3.2-5.2); ALKALINE PHOSPHATASE 108 U/L (40-129); ALT/SGPT 31 U/L (7.0-40); AST/SGOT 16 U/L (<34); BILIRUBIN,TOTAL 0.3 MG/DL (0.3-1.2); BLOOD UREA NITROGEN 26 MG/DL (9-23); CALCIUM LEVEL 9.3 MG/DL (8.3-10.6); CARBON DIOXIDE LEVEL 25 MMOL/L (20-31); CHLORIDE LEVEL 99 MMOL/L (98-107); CREATININE FOR GFR 0.68 MG/DL (0.70-1.30); GLOMERULAR FILTRATION RATE > 90.0 (>35); GLUCOSE, FASTING 237 MG/DL (74-106); POTASSIUM SERUM 3.8 MMOL/L (3.5-5.1); SODIUM LEVEL 137 MMOL/L (136-145); TOTAL PROTEIN 6.2 G/DL (5.7-8.2)
== END ==
LOC: M SHH 15:32
PROVIDERS: ATTEND Internal Medicine
DX: J44.9 Chronic obstructive pulmonary disease, unspecified (principal); R06.00 Dyspnea, unspecified

== ENCOUNTER → 2024-12-19 | Outpatient (REF) | payer MEDICARE, OTHER ==
[2024-12-19 16:45] LABS: APPEARANCE, URINE HAZY (CLEAR); BACTERIA, URINE AUTO 2+ (NEGATIVE); BILIRUBIN, URINE AUTO NEGATIVE (NEGATIVE); BLOOD, URINE BLOOD NEGATIVE (NEGATIVE); COLOR, URINE YELLOW (YELLOW); GLUCOSE, URINE (UA) AUTO NEGATIVE (NEGATIVE); KETONE, URINE AUTO NEGATIVE (NEGATIVE); LEUKOCYTE ESTERASE, URINE AUTO 3+ (NEGATIVE); MUCUS, URINE SMALL (NEGATIVE); NITRITE, URINE AUTO NEGATIVE (NEGATIVE); PROTEIN, URINE AUTO NEGATIVE (NEGATIVE); RBC, URINE AUTO 6 /HPF (0-3); SPECIFIC GRAVITY URINE AUTO 1.009 (1.002-1.035); SQUAMOUS EPITHELIAL CELL UR AU 0 /HPF (0-6); UROBILINOGEN, URINE AUTO 0.2 mg/dL (0.0-2.0); WBC, URINE AUTO 100 /HPF (0-3)
== END ==
LOC: M SHH 15:12
PROVIDERS: ATTEND Internal Medicine
DX: R30.0 Dysuria (principal)

== ENCOUNTER → 2025-02-09 | Outpatient (REF) ==
[~2025-02-09] MED LIST changes: +GLUC3SPR5 NS; +META28.32 PO; +VITA200020 PO
[2025-02-09 10:46] LABS: PLATELET COUNT, AUTOMATED 213 10^3/uL (150-450)
[2025-02-09 11:20] LABS: CALCIUM LEVEL 9.0 MG/DL (8.3-10.6); CARBON DIOXIDE LEVEL 30 MMOL/L (20-31); CHLORIDE LEVEL 102 MMOL/L (98-107); CREATININE FOR GFR 0.72 MG/DL (0.70-1.30); GLOMERULAR FILTRATION RATE > 90.0 (>35); POTASSIUM SERUM 3.6 MMOL/L (3.5-5.1); SODIUM LEVEL 143 MMOL/L (136-145)
== END ==
PROVIDERS: ATTEND Physician Assistant
DX: I10 Essential (primary) hypertension (principal)

== ENCOUNTER → 2025-03-04 | Outpatient (REF) ==
[~2025-03-04] MED LIST changes: +SENN-225 PO; -SENO8.6T5 PO
[2025-03-04 09:21] LABS: PLATELET COUNT, AUTOMATED 215 10^3/uL (150-450)
[2025-03-04 09:56] LABS: CALCIUM LEVEL 9.3 MG/DL (8.3-10.6); CARBON DIOXIDE LEVEL 30.0 MMOL/L (20-31); CHLORIDE LEVEL 102.0 MMOL/L (98-107); CREATININE FOR GFR 0.84 MG/DL (0.70-1.30); GLOMERULAR FILTRATION RATE 87.6 (>35); POTASSIUM SERUM 3.9 MMOL/L (3.5-5.1); SODIUM LEVEL 142.0 MMOL/L (136-145)
[2025-03-04 10:00] LABS: ESTIMATED AVERAGE GLUCOSE 220.0 MG/DL (60-110)
== END ==
PROVIDERS: ATTEND Physician Assistant
DX: E11.9 Type 2 diabetes mellitus without complications (principal)

== ENCOUNTER → 2025-03-05 | Outpatient (REF) | payer MEDICARE, OTHER ==
[~2025-03-05] MED LIST changes: +LIDOCAINE 1% MDV 20 ML VIAL SC STA
[2025-03-05 13:30] VITALS: TEMP 97.8
[2025-03-05 14:37] VITALS: BP 151/70; O2SAT 87
== END ==
LOC: M IRPRO 13:15 → EDSTATUS 14:30
PROVIDERS: ATTEND Physician Assistant
DX: E04.1 Nontoxic single thyroid nodule (principal)

== ENCOUNTER → 2025-03-09 | Outpatient (REF) ==
[~2025-03-09] MED LIST changes: -LIDOCAINE 1% MDV 20 ML VIAL SC STA
[2025-03-09 10:26] LABS: PLATELET COUNT, AUTOMATED 203 10^3/uL (150-450)
[2025-03-09 11:00] LABS: CALCIUM LEVEL 9.1 MG/DL (8.3-10.6); CARBON DIOXIDE LEVEL 30.0 MMOL/L (20-31); CHLORIDE LEVEL 100.0 MMOL/L (98-107); CREATININE FOR GFR 0.77 MG/DL (0.70-1.30); GLOMERULAR FILTRATION RATE 89.9 (>35); POTASSIUM SERUM 3.8 MMOL/L (3.5-5.1); SODIUM LEVEL 141.0 MMOL/L (136-145)
== END ==
PROVIDERS: ATTEND Internal Medicine
DX: I10 Essential (primary) hypertension (principal)

== ENCOUNTER → 2025-04-09 | Outpatient (REF) | payer MEDICARE, OTHER ==
[2025-04-09 12:10] LABS: BASO # 0.1 10^3/uL (0.0-0.2); BASO % 0.7 % (0.0-1.0); EOS # 0.2 10^3/uL (0.0-0.5); EOS % 2.5 % (0.0-3.0); LYMPH # 2.9 10^3/uL (1.5-5.0); LYMPH % 37.3 % (24.0-44.0); MONO # 0.7 10^3/uL (0.0-0.8); MONO % 9.6 % (2.0-8.0); NEUTROPHILS # 3.8 10^3/uL (1.5-8.5); NEUTROPHILS % 49.8 % (36.0-66.0); PLATELET COUNT, AUTOMATED 193 10^3/uL (150-450)
[2025-04-09 12:37] LABS: ALT/SGPT 22 U/L (7.0-40); AST/SGOT 18 U/L (<34); CALCIUM LEVEL 8.9 MG/DL (8.3-10.6); CARBON DIOXIDE LEVEL 30 MMOL/L (20-31); CHLORIDE LEVEL 103 MMOL/L (98-107); CHOLESTEROL LEVEL 122 MG/DL (<200); CHOLESTEROL RISK RATIO 2.96 (<5); CREATININE FOR GFR 0.73 MG/DL (0.70-1.30); ESTIMATED AVERAGE GLUCOSE 189.0 MG/DL (60-110); GLOMERULAR FILTRATION RATE > 90.0 (>35); LDL CHOLESTEROL 54.9 MG/DL (<100); NON-HDL-C 80.9 MG/DL; POTASSIUM SERUM 3.6 MMOL/L (3.5-5.1); SODIUM LEVEL 143 MMOL/L (136-145); TRIGLYCERIDES LEVEL 130 MG/DL (<150)
== END ==
LOC: M LAB REF 11:54
PROVIDERS: ATTEND Internal Medicine
DX: E11.40 Type 2 diabetes mellitus with diabetic neuropathy, unspecified (principal); B34.2 Coronavirus infection, unspecified; E78.5 Hyperlipidemia, unspecified

== ENCOUNTER → 2025-04-30 | Outpatient (REF) | payer MEDICARE, OTHER ==
[2025-04-30 18:28] LABS: AMORPHOUS SEDIMENT SMALL (NEGATIVE); APPEARANCE, URINE TURBID (CLEAR); BACTERIA, URINE AUTO 3+ (NEGATIVE); BILIRUBIN, URINE AUTO NEGATIVE (NEGATIVE); BLOOD, URINE BLOOD 1+ (NEGATIVE); GLUCOSE, URINE (UA) AUTO NEGATIVE (NEGATIVE); KETONE, URINE AUTO NEGATIVE (NEGATIVE); LEUKOCYTE ESTERASE, URINE AUTO 2+ (NEGATIVE); MUCUS, URINE LARGE (NEGATIVE); NITRITE, URINE AUTO NEGATIVE (NEGATIVE); PROTEIN, URINE AUTO 2+ mg/dL (NEGATIVE); RBC, URINE AUTO 107 /HPF (0-3); SPECIFIC GRAVITY URINE AUTO 1.019 (1.002-1.035); SQUAMOUS EPITHELIAL CELL UR AU 0 /HPF (0-6); UROBILINOGEN, URINE AUTO 0.2 mg/dL (0.0-2.0); WBC, URINE AUTO TNTC /HPF (0-3)
== END ==
LOC: M SMT 16:59
PROVIDERS: ATTEND Urology
DX: N31.2 Flaccid neuropathic bladder, not elsewhere classified (principal)

== ENCOUNTER 2025-05-31 11:18 | Inpatient (IN) | payer MEDICARE, OTHER ==
[~2025-05-31] VITALS: Ht 185.4 cm; Wt 78.2 kg
[2025-05-31 12:09] LABS: BASO # 0.0 10^3/uL (0.0-0.2); BASO % 0.2 % (0.0-1.0); EOS # 0.0 10^3/uL (0.0-0.5); EOS % 0.1 % (0.0-3.0); LYMPH # 2.9 10^3/uL (1.5-5.0); LYMPH % 16.6 % (24.0-44.0); MONO # 2.0 10^3/uL (0.0-0.8); MONO % 11.5 % (2.0-8.0); NEUTROPHILS # 12.4 10^3/uL (1.5-8.5); NEUTROPHILS % 71.4 % (36.0-66.0); PLATELET COUNT, AUTOMATED 204 10^3/uL (150-450)
[2025-05-31 12:37] LABS: CK-MB VALUE MASS < 1.0 NG/ML (<3.6)
[2025-05-31 12:43] LABS: VENOUS BASE EXCESS 2.4 (-2.0-2.0); VENOUS HCO3 28.7 MMOL/L (23.0-27.0); VENOUS O2 SATURATION 64.6 % (60.0-80.0); VENOUS PARTIAL PRESSURE CO2 50.7 mmHg (38.0-50.0); VENOUS PARTIAL PRESSURE O2 33.9 mmHg (30.0-50.0); VENOUS PH 7.371 UNITS (7.330-7.430); VENOUS STANDARD HCO3 25.6 MMOL/L; VENOUS TOTAL CO2 30.3 MMOL/L (24.0-28.0)
[2025-05-31 12:51] LABS: ALT/SGPT 15 U/L (7.0-40); AST/SGOT 16 U/L (<34); CALCIUM LEVEL 9.2 MG/DL (8.3-10.6); CARBON DIOXIDE LEVEL 30 MMOL/L (20-31); CHLORIDE LEVEL 100 MMOL/L (98-107); CREATININE FOR GFR 0.82 MG/DL (0.70-1.30); GLOMERULAR FILTRATION RATE 87.7 (>35); MAGNESIUM LEVEL 1.6 MG/DL (1.8-2.4); POTASSIUM SERUM 4.0 MMOL/L (3.5-5.1); SODIUM LEVEL 141 MMOL/L (136-145)
[2025-05-31 12:53] LABS: FREE T4 1.21 NG/DL (0.89-1.76)
[2025-05-31 13:00] LABS: KETONE, URINE MANUAL REFLEX NEGATIVE (NEGATIVE); NITRITE, URINE MANUAL RFX POSITIVE (NEGATIVE); PROTEIN, URINE MANUAL REFLEX 2+ mg/dL (NEGATIVE); SP GRAVITY,URINE MANUAL REFLEX 1.015 (1.002-1.035); UROBILINOGEN, UA MANUAL REFLEX NORMAL (NORMAL)
[2025-05-31 13:03] LABS: RBC, URINE MAN REFLEX 0-1 /hpf (0-3); SQUAMOUS EPITHELIAL URINE RFX NONE SEEN /hpf (SMALL AMT)
[2025-05-31 13:04] LABS: CPK CREATINE PHOSPHOKINASE 21 U/L (46-171)
[2025-05-31 13:04] LABS: HYALINE CAST, URINE RFX NONE SEEN /lpf (0-1); MICROSCOPIC EXAM RFX UNSPUN
[2025-05-31 13:05] LABS: INR 1.13
[2025-05-31] MEDS: NS (Normal Saline) 0.9% 1,000 ML IV ONE ×2 (14:01→18:38)
[2025-05-31] MEDS: PIPERACILLIN/TAZOBACTAM SOD 4.5 GM in DEXTROSE 5% (D5W) ADV/MINI-BAG 50 ML IV ONE (14:01)
[2025-05-31] MEDS ORDERED: ISOVUE-370 76% 100 ML VIAL As Ordered ONE (14:52)
[2025-05-31] MEDS ORDERED: GLUCAGON INJ 1 MG VIAL SC PRN (17:10)
[2025-05-31] MEDS ORDERED: GLUCOSE 4 GM CHEW PO PRN (17:10)
[2025-05-31] MEDS ORDERED: DEXTROSE 50% 50 ML SYRINGE IV PRN (17:10)
[2025-05-31 17:46] LABS: C REACTIVE PROTEIN QUANTITATIV 6.23 MG/DL (<1.0)
[2025-05-31] MEDS: CEFEPIME HCL 1 GM in DEXTROSE 5% (D5W) ADV/MINI-BAG 50 ML IV SCH (18:36)
[2025-05-31] MEDS: INSULIN LISPRO (NovoLOG) PER UNIT SC SCH ×2 (18:38→22:03)
[2025-05-31 20:20] VITALS: BP 149/100; TEMP 97.5; O2SAT 97
[2025-05-31] MEDS: ALBUTEROL SULFATE 2.5 MG/0.5 ML INH CONCENTRATE NEB SOLN INH SCH (20:26)
[2025-05-31] MEDS: SODIUM CHLORIDE HYPERTONIC 3% 4ML NEB SOL INH SCH (20:26)
[2025-05-31] MEDS: MAG SULF 1GM/100ML (MAG RUN) 1 GM in IV 1 EA IV SCH (20:50)
[2025-06-01 05:18] VITALS: BP 130/69; TEMP 97.5; O2SAT 96
[2025-06-01 06:48] LABS: PLATELET COUNT, AUTOMATED 188 10^3/uL (150-450)
[2025-06-01 07:09] LABS: CALCIUM LEVEL 8.4 MG/DL (8.3-10.6); CARBON DIOXIDE LEVEL 28 MMOL/L (20-31); CHLORIDE LEVEL 101 MMOL/L (98-107); CREATININE FOR GFR 0.75 MG/DL (0.70-1.30); GLOMERULAR FILTRATION RATE > 90.0 (>35); POTASSIUM SERUM 3.6 MMOL/L (3.5-5.1); SODIUM LEVEL 140 MMOL/L (136-145)
[2025-06-01] MEDS ORDERED: HYDR-3490 PO (08:52)
[2025-06-01] MEDS: hydroCHLOROthiazide 25 MG TAB PO SCH (09:00)
[2025-06-01] MEDS: ENOXAPARIN 40 MG/0.4 ML SYRINGE (J1650 PER 10MG) SC SCH (09:04)
[2025-06-01] MEDS ORDERED: HOME MED LIST COMPLETE! XX SCH (09:35)
[2025-06-01] MEDS ORDERED: KETOCONAZOLE 2% CREAM TOP PRN (09:55)
[2025-06-01] MEDS ORDERED: DOCUSATE SODIUM 100 MG CAPSULE PO PRN (09:55)
[2025-06-01] MEDS ORDERED: SENNA 8.6 MG TAB PO PRN (09:55)
[2025-06-01] MEDS ORDERED: AZELASTINE 137 MCG NASAL SPY 30 ML PRN (09:55)
[2025-06-01] MEDS ORDERED: PILL CUTTER 1 EACH XX PRN (10:25)
[2025-06-01] MEDS: ASPIRIN 81 MG ENTERIC TABLET PO SCH (10:39)
[2025-06-01] MEDS: METAMUCIL PACKET PO SCH (11:50)
[2025-06-01] MEDS: PRIMIDONE 250 MG TAB PO SCH (11:51)
[2025-06-01] MEDS: ATORVASTATIN 10 MG TAB PO SCH (11:51)
[2025-06-01 14:00] VITALS: BP 128/70; TEMP 97.6; O2SAT 98
[2025-06-01] MEDS ORDERED: E-Z-PAQUE 96% w/w SUSP 176 GM BTL As Ordered ONE (14:12)
[2025-06-01] MEDS ORDERED: BARIUM SULFATE 700 MG TABLET As Ordered ONE (14:12)
[2025-06-01] MEDS ORDERED: VARIBAR NECTAR 40% w/v 240ML SUSP BTL As Ordered ONE (14:13)
[2025-06-01] MEDS ORDERED: VARIBAR PUDDING 40% w/v 230ML TUBE As Ordered ONE (14:13)
[2025-06-01] MEDS: FLUZONE HIGH DOSE (65+) 0.5 ML SYRINGE (25-26) IM.IMMUN ONE (18:04)
[2025-06-01] MEDS: ADVAIR HFA 230/21 MCG INHALER INH SCH (19:33)
[2025-06-01 20:15] VITALS: BP 145/72; TEMP 97.9; O2SAT 91
[2025-06-01] MEDS: MONTELUKAST 10 MG TAB PO SCH (20:28)
[2025-06-01] MEDS: FINASTERIDE 5 MG TAB PO SCH (20:30)
[2025-06-01] MEDS: METOPROLOL SUCC. 50 MG *XL* TAB PO SCH (20:31)
[2025-06-02 05:56] VITALS: BP 134/71; TEMP 97.9; O2SAT 93
[2025-06-02 14:00] VITALS: BP 157/76; TEMP 97.9
[2025-06-02] MEDS: PIPERACILLIN/TAZOBACTAM SOD 3.375 GM in DEXTROSE 5% (D5W) ADV/MINI-BAG 50 ML IV SCH (14:40)
[2025-06-02 19:39] VITALS: BP 132/64; TEMP 98.2; O2SAT 92
[2025-06-03 06:10] VITALS: BP 137/67; TEMP 96.8; O2SAT 93
[2025-06-03 06:39] LABS: BASO # 0.0 10^3/uL (0.0-0.2); BASO % 0.6 % (0.0-1.0); EOS # 0.3 10^3/uL (0.0-0.5); EOS % 3.7 % (0.0-3.0); LYMPH # 1.7 10^3/uL (1.5-5.0); LYMPH % 25.5 % (24.0-44.0); MONO # 0.8 10^3/uL (0.0-0.8); MONO % 12.4 % (2.0-8.0); NEUTROPHILS # 3.8 10^3/uL (1.5-8.5); NEUTROPHILS % 57.7 % (36.0-66.0); PLATELET COUNT, AUTOMATED 178 10^3/uL (150-450)
[2025-06-03 07:08] LABS: CALCIUM LEVEL 8.3 MG/DL (8.3-10.6); CARBON DIOXIDE LEVEL 28.0 MMOL/L (20-31); CHLORIDE LEVEL 99.0 MMOL/L (98-107); CREATININE FOR GFR 0.88 MG/DL (0.70-1.30); GLOMERULAR FILTRATION RATE 85.9 (>35); POTASSIUM SERUM 3.7 MMOL/L (3.5-5.1); SODIUM LEVEL 137.0 MMOL/L (136-145)
[2025-06-03 14:00] VITALS: BP 129/63; TEMP 97.9
[2025-06-03 19:39] VITALS: BP 128/61; TEMP 98.4; O2SAT 91
[2025-06-04 05:19] VITALS: BP 142/65; TEMP 97.7; O2SAT 90
[2025-06-04 08:08] LABS: BASO # 0.0 10^3/uL (0.0-0.2); BASO % 0.5 % (0.0-1.0); EOS # 0.2 10^3/uL (0.0-0.5); EOS % 2.5 % (0.0-3.0); LYMPH # 1.8 10^3/uL (1.5-5.0); LYMPH % 24.1 % (24.0-44.0); MONO # 0.9 10^3/uL (0.0-0.8); MONO % 12.3 % (2.0-8.0); NEUTROPHILS # 4.4 10^3/uL (1.5-8.5); NEUTROPHILS % 60.5 % (36.0-66.0); PLATELET COUNT, AUTOMATED 191 10^3/uL (150-450)
[2025-06-04 08:32] LABS: CALCIUM LEVEL 8.3 MG/DL (8.3-10.6); CARBON DIOXIDE LEVEL 28.0 MMOL/L (20-31); CHLORIDE LEVEL 98.0 MMOL/L (98-107); CREATININE FOR GFR 0.86 MG/DL (0.70-1.30); GLOMERULAR FILTRATION RATE 86.5 (>35); MAGNESIUM LEVEL 1.7 MG/DL (1.8-2.4); POTASSIUM SERUM 3.4 MMOL/L (3.5-5.1); SODIUM LEVEL 135.0 MMOL/L (136-145)
[2025-06-04 08:33] LABS: IRON (FE) 50.0 UG/DL (65-175)
[2025-06-04] MEDS: POTASSIUM CHLORIDE 10MEQ SR TABLET PO ONE (09:21)
[2025-06-04] MEDS: MAG SULF 1GM/100ML (MAG RUN) 1 GM in IV 1 EA IV ONE (10:17)
[2025-06-04 14:00] VITALS: TEMP 98.6; O2SAT 94
[2025-06-04 20:05] VITALS: BP 138/66; TEMP 97.7; O2SAT 93
[2025-06-05 06:18] VITALS: BP 155/90; TEMP 97; O2SAT 93
[2025-06-05 06:47] LABS: BASO # 0.0 10^3/uL (0.0-0.2); BASO % 0.4 % (0.0-1.0); EOS # 0.2 10^3/uL (0.0-0.5); EOS % 2.9 % (0.0-3.0); LYMPH # 1.6 10^3/uL (1.5-5.0); LYMPH % 20.1 % (24.0-44.0); MONO # 1.1 10^3/uL (0.0-0.8); MONO % 14.1 % (2.0-8.0); NEUTROPHILS # 4.9 10^3/uL (1.5-8.5); NEUTROPHILS % 62.4 % (36.0-66.0); PLATELET COUNT, AUTOMATED 204 10^3/uL (150-450)
[2025-06-05 07:15] LABS: CALCIUM LEVEL 8.0 MG/DL (8.3-10.6); CARBON DIOXIDE LEVEL 28.0 MMOL/L (20-31); CHLORIDE LEVEL 98.0 MMOL/L (98-107); CREATININE FOR GFR 0.81 MG/DL (0.70-1.30); GLOMERULAR FILTRATION RATE 88.0 (>35); MAGNESIUM LEVEL 1.8 MG/DL (1.8-2.4); POTASSIUM SERUM 3.5 MMOL/L (3.5-5.1); SODIUM LEVEL 136.0 MMOL/L (136-145)
[2025-06-05 14:00] VITALS: BP 136/69; TEMP 97.5
[2025-06-05] MEDS: ACETAMINOPHEN 500 MG TAB PO PRN (14:29)
[2025-06-05] MEDS ORDERED: BISACODYL 10 MG SUPP PR PRN (14:35)
[2025-06-05 19:57] VITALS: BP 135/69; TEMP 96.8; O2SAT 95
[2025-06-05] MEDS: MIRALAX *UNIT DOSE* 17 GM PACKET PO SCH (20:40)
[2025-06-05] MEDS: SENNOSIDES/DOCUSATE SODIUM 8.6 MG/50MG TAB PO SCH (20:40)
[2025-06-06 04:35] VITALS: BP 127/75; TEMP 97.2; O2SAT 96
[2025-06-06 07:19] LABS: BASO # 0.0 10^3/uL (0.0-0.2); BASO % 0.4 % (0.0-1.0); EOS # 0.3 10^3/uL (0.0-0.5); EOS % 4.1 % (0.0-3.0); LYMPH # 1.5 10^3/uL (1.5-5.0); LYMPH % 20.1 % (24.0-44.0); MONO # 0.9 10^3/uL (0.0-0.8); MONO % 11.1 % (2.0-8.0); NEUTROPHILS # 4.9 10^3/uL (1.5-8.5); NEUTROPHILS % 64.2 % (36.0-66.0); PLATELET COUNT, AUTOMATED 221 10^3/uL (150-450)
[2025-06-06 07:49] LABS: CALCIUM LEVEL 8.1 MG/DL (8.3-10.6); CARBON DIOXIDE LEVEL 28.0 MMOL/L (20-31); CHLORIDE LEVEL 97.0 MMOL/L (98-107); CREATININE FOR GFR 0.83 MG/DL (0.70-1.30); GLOMERULAR FILTRATION RATE 87.4 (>35); POTASSIUM SERUM 3.5 MMOL/L (3.5-5.1); SODIUM LEVEL 135.0 MMOL/L (136-145)
[2025-06-06 14:00] VITALS: BP 134/61; TEMP 97.3; O2SAT 94
[2025-06-06 19:23] VITALS: BP 126/70; TEMP 97.2; O2SAT 96
[2025-06-07 05:11] VITALS: BP 131/66; TEMP 97; O2SAT 97
[2025-06-07 06:31] LABS: BASO # 0.0 10^3/uL (0.0-0.2); BASO % 0.4 % (0.0-1.0); EOS # 0.2 10^3/uL (0.0-0.5); EOS % 3.4 % (0.0-3.0); LYMPH # 1.7 10^3/uL (1.5-5.0); LYMPH % 23.3 % (24.0-44.0); MONO # 0.9 10^3/uL (0.0-0.8); MONO % 12.3 % (2.0-8.0); NEUTROPHILS # 4.3 10^3/uL (1.5-8.5); NEUTROPHILS % 60.5 % (36.0-66.0); PLATELET COUNT, AUTOMATED 241 10^3/uL (150-450)
[2025-06-07 06:58] LABS: CALCIUM LEVEL 8.6 MG/DL (8.3-10.6); CARBON DIOXIDE LEVEL 27.0 MMOL/L (20-31); CHLORIDE LEVEL 98.0 MMOL/L (98-107); CREATININE FOR GFR 0.82 MG/DL (0.70-1.30); GLOMERULAR FILTRATION RATE 87.7 (>35); POTASSIUM SERUM 3.5 MMOL/L (3.5-5.1); SODIUM LEVEL 138.0 MMOL/L (136-145)
[2025-06-07] MEDS: LIDOCAINE 5% PATCH TD SCH (12:12)
[2025-06-07 14:00] VITALS: BP 130/62; TEMP 97.5; O2SAT 99
[2025-06-07 19:33] VITALS: BP 129/61; TEMP 97.2; O2SAT 97
[2025-06-07] MEDS: LanTUS (INSULIN GLARGINE INJ) 1 UNITS/0.01 ML SC SCH (21:04)
[2025-06-08 06:00] VITALS: BP 129/62; TEMP 97; O2SAT 96
[2025-06-08 06:33] LABS: BASO # 0.0 10^3/uL (0.0-0.2); BASO % 0.6 % (0.0-1.0); EOS # 0.2 10^3/uL (0.0-0.5); EOS % 2.4 % (0.0-3.0); LYMPH # 1.8 10^3/uL (1.5-5.0); LYMPH % 26.6 % (24.0-44.0); MONO # 0.8 10^3/uL (0.0-0.8); MONO % 12.0 % (2.0-8.0); NEUTROPHILS # 3.9 10^3/uL (1.5-8.5); NEUTROPHILS % 58.3 % (36.0-66.0); PLATELET COUNT, AUTOMATED 257 10^3/uL (150-450)
[2025-06-08 07:05] LABS: CALCIUM LEVEL 8.2 MG/DL (8.3-10.6); CARBON DIOXIDE LEVEL 28.0 MMOL/L (20-31); CHLORIDE LEVEL 98.0 MMOL/L (98-107); CREATININE FOR GFR 0.86 MG/DL (0.70-1.30); GLOMERULAR FILTRATION RATE 86.5 (>35); POTASSIUM SERUM 3.6 MMOL/L (3.5-5.1); SODIUM LEVEL 137.0 MMOL/L (136-145)
[2025-06-08 08:19] VITALS: BP 134/78; TEMP 97.2; O2SAT 97
[2025-06-08] MEDS: AMOXICILLIN 875 MG TAB PO SCH (09:01)
[2025-06-08] MEDS: CIPROFLOXACIN 500 MG TABLET PO SCH (09:18)
[2025-06-08 14:00] VITALS: BP 128/62; TEMP 97.2; O2SAT 95
[2025-06-08 14:30] VITALS: BP 128/60; TEMP 97; O2SAT 97
[2025-06-08 19:48] VITALS: BP 142/72; TEMP 97.5; O2SAT 95
[2025-06-09 06:13] VITALS: BP 142/77; TEMP 97; O2SAT 94
[2025-06-09 07:42] LABS: BASO # 0.0 10^3/uL (0.0-0.2); BASO % 0.6 % (0.0-1.0); EOS # 0.1 10^3/uL (0.0-0.5); EOS % 1.8 % (0.0-3.0); LYMPH # 1.3 10^3/uL (1.5-5.0); LYMPH % 20.5 % (24.0-44.0); MONO # 0.8 10^3/uL (0.0-0.8); MONO % 11.8 % (2.0-8.0); NEUTROPHILS # 4.3 10^3/uL (1.5-8.5); NEUTROPHILS % 65.0 % (36.0-66.0); PLATELET COUNT, AUTOMATED 263 10^3/uL (150-450)
[2025-06-09 08:16] LABS: CALCIUM LEVEL 8.7 MG/DL (8.3-10.6); CARBON DIOXIDE LEVEL 26.0 MMOL/L (20-31); CHLORIDE LEVEL 97.0 MMOL/L (98-107); CREATININE FOR GFR 0.77 MG/DL (0.70-1.30); GLOMERULAR FILTRATION RATE 89.4 (>35); POTASSIUM SERUM 3.5 MMOL/L (3.5-5.1); SODIUM LEVEL 135.0 MMOL/L (136-145)
[2025-06-09] MEDS ORDERED: AMOX875T PO (09:10)
[2025-06-09] MEDS ORDERED: CIPR500T39 PO (09:10)
[2025-06-09] MEDS ORDERED: OLME20TA50 PO (09:10)
[2025-06-09] MEDS: INSULIN LISPRO (NovoLOG) PER UNIT SC STA (09:29)
[2025-06-09] MEDS: POTASSIUM CHLORIDE 10MEQ SR TABLET PO ONE (09:30)
[2025-06-09 14:00] VITALS: BP 133/70; TEMP 97; O2SAT 96
[2025-06-09 20:05] VITALS: BP 133/60; TEMP 97; O2SAT 96
[2025-06-09] MEDS: LanTUS (INSULIN GLARGINE INJ) 1 UNITS/0.01 ML SC SCH (21:13)
[2025-06-10 05:40] VITALS: BP 145/76; TEMP 97; O2SAT 96
[2025-06-10 07:43] LABS: CALCIUM LEVEL 8.7 MG/DL (8.3-10.6); CARBON DIOXIDE LEVEL 28.0 MMOL/L (20-31); CHLORIDE LEVEL 100.0 MMOL/L (98-107); CREATININE FOR GFR 0.77 MG/DL (0.70-1.30); GLOMERULAR FILTRATION RATE 89.4 (>35); POTASSIUM SERUM 3.7 MMOL/L (3.5-5.1); SODIUM LEVEL 138.0 MMOL/L (136-145)
[2025-06-10] MEDS: INSULIN LISPRO (NovoLOG) PER UNIT SC ONE (07:46)
[2025-06-10 09:14] VITALS: BP 114/60
[2025-06-10] MEDS ORDERED: HumuLIN R (REGULAR) INSULIN (NovoLIN R) **100 U/ML** PER UNIT IV STA (10:53)
[2025-06-10] MEDS ORDERED: INSULANT SC (11:50)
== END 2025-06-10 12:05 | DRG 698 ==
LOC: EDBD 11:18 → M ED 11:18 → M ED INP 17:07 → M MS5PR 20:19
PROVIDERS: ADMIT Internal Medicine; ATTEND Student in an Organized Health Care Education/Training Program
DX: T83.511A Infection and inflammatory reaction due to indwelling urethral catheter, initial encounter (principal); G93.41 Metabolic encephalopathy; E87.20 Acidosis, unspecified; R47.01 Aphasia; J98.11 Atelectasis; Y84.6 Urinary catheterization as the cause of abnormal reaction of the patient, or of later complication, without mention of misadventure at the time of the procedure; R33.9 Retention of urine, unspecified; N40.1 Benign prostatic hyperplasia with lower urinary tract symptoms; E11.9 Type 2 diabetes mellitus without complications; G25.0 Essential tremor; E78.5 Hyperlipidemia, unspecified; K59.00 Constipation, unspecified; I10 Essential (primary) hypertension; R53.1 Weakness; E04.2 Nontoxic multinodular goiter; E83.42 Hypomagnesemia; J44.9 Chronic obstructive pulmonary disease, unspecified; D64.9 Anemia, unspecified; M54.2 Cervicalgia; M54.6 Pain in thoracic spine; B96.5 Pseudomonas (aeruginosa) (mallei) (pseudomallei) as the cause of diseases classified elsewhere; B95.2 Enterococcus as the cause of diseases classified elsewhere; N39.0 Urinary tract infection, site not specified; Z79.4 Long term (current) use of insulin; Z79.82 Long term (current) use of aspirin; Z79.899 Other long term (current) drug therapy; Z91.119 Patient's noncompliance with dietary regimen due to unspecified reason

== ENCOUNTER → 2025-06-12 | Outpatient (REF) ==
[~2025-06-12] MED LIST changes: +AMOX875T PO; +CIPR500T39 PO; +HYDR-3490 PO; +INSULANT SC; +OLME20TA50 PO
== END ==
PROVIDERS: ATTEND Physician Assistant
DX: R05.9 Cough, unspecified (principal)

== ENCOUNTER → 2025-06-12 | Outpatient (REF) | PROVIDERS: ATTEND Physician Assistant | DX: R05.9 Cough, unspecified (principal) ==

== ENCOUNTER → 2025-06-17 | Outpatient (REF) ==
[2025-06-17 10:52] LABS: PLATELET COUNT, AUTOMATED 232 10^3/uL (150-450)
[2025-06-17 11:24] LABS: CALCIUM LEVEL 8.9 MG/DL (8.3-10.6); CARBON DIOXIDE LEVEL 28 MMOL/L (20-31); CHLORIDE LEVEL 98 MMOL/L (98-107); CREATININE FOR GFR 0.73 MG/DL (0.70-1.30); GLOMERULAR FILTRATION RATE > 90.0 (>35); POTASSIUM SERUM 3.6 MMOL/L (3.5-5.1); SODIUM LEVEL 138 MMOL/L (136-145)
[2025-06-17 12:00] LABS: ESTIMATED AVERAGE GLUCOSE 200.0 MG/DL (60-110)
== END ==
PROVIDERS: ATTEND Physician Assistant
DX: I10 Essential (primary) hypertension (principal)

== ENCOUNTER → 2025-06-24 | Outpatient (REF) ==
[2025-06-24 11:49] LABS: PLATELET COUNT, AUTOMATED 261 10^3/uL (150-450)
[2025-06-24 12:00] LABS: CALCIUM LEVEL 8.7 MG/DL (8.3-10.6); CARBON DIOXIDE LEVEL 30 MMOL/L (20-31); CHLORIDE LEVEL 103 MMOL/L (98-107); CREATININE FOR GFR 0.67 MG/DL (0.70-1.30); GLOMERULAR FILTRATION RATE > 90.0 (>35); POTASSIUM SERUM 4.3 MMOL/L (3.5-5.1); SODIUM LEVEL 142 MMOL/L (136-145)
== END ==
PROVIDERS: ATTEND Physician Assistant
DX: I50.9 Heart failure, unspecified (principal)

== ENCOUNTER → 2025-06-26 | Outpatient (REF) | PROVIDERS: ATTEND Physician Assistant | DX: R05.9 Cough, unspecified (principal) ==